=== PATIENT | female | born 1930 | race Caucasian/White ===

== ENCOUNTER 2020-02-21 11:15 | Inpatient (IN) | payer MEDICARE ==
[~2020-02-21] VITALS: Ht 165.1 cm; Wt 61.2 kg
[2020-02-21 11:38] VITALS: BP_SYST 150; BP_SYST 152; BP_DIAS 72; BP_DIAS 81
--- NOTE | 2020-02-21 11:43 | ER.PDOC ---
General Chief Complaint: Requesting Medical Care Stated Complaint: MED CLEARANCE Time seen by MD: 11:35 Source: patient, EMS Exam Limitations: clinical condition History of Present Illness Initial Comments Patient arrives here via ambulance from [place] d/t new onset delusions. We are to medically clear her for [facility] admission. Character of AMS: agitated Context: chronic dementia Usually: alert but confused Allergies: Coded Allergies: azithromycin (Verified Allergy, Unknown, 02/21/20) cyanocobalamin (vitamin B12) (Verified Allergy, Unknown, 02/21/20) ferrous sulfate (Verified Allergy, Unknown, 02/21/20) meperidine (Verified Allergy, Unknown, 02/21/20) Past Medical History Medical History: cardiac problems, diabetes, other (dementia) Review of Systems Constitutional: no symptoms reported Eyes: no symptoms reported Ears, Nose, Mouth, Throat: no symptoms reported Respiratory: no symptoms reported Cardiovascular: no symptoms reported Gastrointestinal: no symptoms reported Skin: no symptoms reported Psychiatric/Neurological: emotional problems, cognitive dysfunction Physical Exam General Appearance: alert, no distress HEENT: no apparent trauma, EOM's intact, no nystagmus, PERRL Neuro/Psych: disoriented to time, abnml cognition (Patient persistently repeats the same questions, seconds/minutes after giving an answer) Cranial Nerves: nml as tested Peripheral Exam: motor nml Neck: supple, non-tender Respiratory: no resp distress, breath sounds nml, resp distress CVS: heart sounds nml Abdomen: non-tender, no distention Skin: color nml, no rash Extremities: non-tender, nml ROM, no pedal edema Results/Orders Results/Orders Orders - MARCOS MOLINA DO Cbc With Auto Diff (02/21/20 11:32) Comprehensive Metabolic Panel (02/21/20 11:32) Urinalysis (02/21/20 11:32) Thyroid Stimulating Horm(Ml) (02/21/20 11:32) Drug Scrn Med W Confirmation (02/21/20 11:32) Vitamin D, 25 Hydroxy (02/21/20 11:32) RPR (02/21/20 11:32) Hemoglobin A1c(Ml) (02/21/20 11:32) Lipid Panel(Ml) (02/21/20 11:32) Troponin I (02/21/20 11:32) Creatine Kinase (02/21/20 11:32) Creatine Kinase Mb (02/21/20 11:32) Probnp B-Type Parachute Officer (02/21/20 11:32) Alcohol(Ml) (02/21/20 11:32) Acetaminophen(Ml) (02/21/20 11:32) Salicylate(Ml) (02/21/20 11:32) Ekg-Routine (02/21/20 11:32) Ct Head Wo Contrast (02/21/20 11:32) Xr Chest 1v (02/21/20 11:32) Lorazepam (Ativan) (02/21/20 12:10) Haloperidol Lactate (Haldol) (02/21/20 12:42) Haloperidol Lactate (Haldol) (02/21/20 12:58) Urine Culture (02/21/20 12:41) Ondansetron Hcl/Pf (Zofran) (02/21/20 13:20) Fentanyl Citrate/Pf (Sublimaze) (02/21/20 13:21) Vital Signs Date Time Temp Pulse Resp B/P (MAP) Pulse Ox O2 Delivery O2 Flow Rate FiO2 02/21/20 11:51 98.3 70 16 150/81 (104) 97 Room Air 02/21/20 11:38 98.0 71 16 97 02/21/20 11:38 98.3 70 16 Administered Medications Medications (Trade) Dose Ordered Sig/Colton Route PRN Reason Start Time Stop Time Status Last Admin Dose Admin Haloperidol Lactate (Haldol) 5 mg STAT STAT IM 02/21/20 12:42 02/21/20 12:43 DC 02/21/20 13:03 5 MG Laboratory Tests Test 02/21/20 11:55 02/21/20 12:15 White Blood Count 7.4 10^3/uL (4.5-11.0) Red Blood Count 4.33 10^6/uL (4.00-5.20) Hemoglobin 12.7 g/dL (12.0-15.0) Hematocrit 37.9 % (36.0-46.0) Mean Corpuscular Volume 87.5 fL (78-100) Mean Corpuscular Hemoglobin 29.3 pg (26-34) Mean Corpuscular Hemoglobin Concent 33.5 g/dL (33-36.5) Red Cell Distribution Width 12.6 % (11.5-14.5) Platelet Count 287 10^3/uL (150-400) Mean Platelet Volume 10.2 fL (7.8-11.0) Neutrophils (%) (Auto) 65.2 % (41.0-85.0) Lymphocytes (%) (Auto) 26.9 % (24.0-44.0) Monocytes (%) (Auto) 6.7 % (5.0-12.0) Neutrophils # (Auto) 4.8 10^3/uL (1.8-7.7) Lymphocytes # (Auto) 1.98 10^3/uL1 (1.0-4.8) Monocytes # (Auto) 0.5 10^3/uL (0.3-0.8) Absolute Immature Granulocyte (auto 0.01 10^3 u/L (0-2) Absolute Eosinophils (auto) 0.1 10^3/uL (0.0-0.2) Immature Granulocytes % 0.10 % (0.00-0.50) Eosinophils % 0.8 % (0.0-5.0) Basophils % 0.3 % (0.0-0.2) H Basophils # 0.0 10^3/uL (0.0-0.1) Sodium Level 137 mmol/L (132-145) Potassium Level 3.8 mmol/L (3.6-5.2) Chloride Level 103.0 mmol/L (96-109) Carbon Dioxide Level 24.4 mmol/L (20.0-32) Anion Gap 13.4 Blood Urea Nitrogen 18 mg/dL (7-18) Creatinine 1.56 mg/dL (0.59-1.40) H Estimated GFR () 38.0 (>/=60) Est GFR (CKD-EPI)(Non-Afr Surinamese) 31.4 (>/=60) BUN/Creatinine Ratio 11.0 Glucose Level 148 mg/dL (70-110) H Hemoglobin A1c 11.2 % (0-5.7) H Calcium Level 9.0 mg/dL (8.4-10.5) Total Bilirubin 0.3 mg/dL (0.2-1.0) Aspartate Amino Transferase (AST) 24 U/L (0-35) Alanine Aminotransferase (ALT) 27 U/L (12-78) Alkaline Phosphatase 55 U/L (50-136) Total Creatine Kinase 44 U/L (26-192) Creatine Kinase MB 1.7 ng/mL (0.5-3.6) Troponin I < 0.02 ng/mL (0.00-0.05) Pro-B-Type Natriuretic Peptide 796 pg/mL (0-450) H Total Protein 6.4 g/dL (6.4-8.2) Albumin 3.3 g/dL (3.4-5.0) L Globulin 3.1 Triglycerides Level 134 mg/dL (20-200) Cholesterol Level 272 mg/dL (120-240) H LDL Cholesterol, Calculated 204.2 VLDL Cholesterol, Calculated 26.8 HDL Cholesterol 41 mg/dL (32-96) Cholesterol Ratio (LDL/HDL) 4.9 Cholesterol/HDL Ratio 6.685125 Thyroid Stimulating Hormone (TSH) 3.118 mIU/mL (0.358-3.740) Salicylates Level < 2.8 mg/dL (2.8-20.0) L Acetaminophen Level < 3 ug/mL (10-30) L Serum Alcohol < 3 mg/dL (0-50) Urine Collection Type VOID Urine Color YELLOW (YELLOW) Urine Appearance CLEAR (CLEAR) Urine Bilirubin NEGATIVE MG/DL (NEGATIVE) Urine Ketones NEGATIVE (NEGATIVE) Urine Specific [place] 1.015 (1.005-1.035) Urine pH 6.0 (5.0-6.0) Urine Protein NEGATIVE (NEGATIVE) Urine Urobilinogen NEGATIVE (NEGATIVE) Urine Nitrate NEGATIVE (NEGATIVE) Urine Leukocyte Esterase 100/ul 1+ (NEGATIVE) Urine Blood 10 TR (NEGATIVE) H Urine RBC 0-2 RBC/HPF (NONE SEEN) Urine WBC 2-5 WBC/HPF (0-2) Urine Squamous Epithelial Cells FEW #/HPF (FEW) Urine Bacteria FEW (NONE SEEN) H Urine Glucose 100 (NEGATIVE) H Urine Opiates Screen NEGATIVE (c/o300ng/mL) Urine Methadone Screen NEGATIVE (c/o300ng/mL) Urine Barbiturates Screen NEGATIVE (c/o200ng/mL) Urine Phencyclidine Screen NEGATIVE (c/o 25ng/mL) Ur Amphetamine/Methamphetamine NEGATIVE (mt9081ee/mL) Urine MDMA Screen (Ecstasy) PRESUMPTIVE POSITIVE Urine Benzodiazepines Screen NEGATIVE (c/o200ng/mL) Urine Cocaine Metabolite Screen NEGATIVE (c/o300ng/mL) Ur Tetrahydrocannabinol (THC) Scrn NEGATIVE (c/o 50ng/mL) EKG/XRAY/CT/US EKG: NSR, no ST T wave changes XRAY: chest XRAY Comments: no acute dz CT Comments: age related changes Consult/PCP Time Consult/PCP Called: 13:57 Consult/PCP: Dr. Wang Reason/Comments: accepted patient to [facility] Departure Time of Disposition: 13:58 Disposition: 09 ADMITTED INPATIENT Impression: Primary Impression: Delusional disorder Additional Impressions: Combative behavior Dementia Uncontrolled diabetes mellitus Condition: Improved Duration or Time Spent with Pa: 15 min Problem Qualifiers Additional Impressions: Dementia Dementia type: unspecified type Dementia behavioral disturbance: with behavioral disturbance Qualified Codes: F03.91 - Unspecified dementia with behavioral disturbance Uncontrolled diabetes mellitus Diabetes mellitus type: type 2 Glycemic state: with hyperglycemia Qualified Codes: E11.65 - Type 2 diabetes mellitus with hyperglycemia MARCOS MOLINA DO Feb 21, 2020 11:43
[2020-02-21 11:51] VITALS: BP 150/81
--- NOTE | 2020-02-21 11:53 | NUR ---
[facility] NOTIFIED CAROLYNN ON [facility] PT HAS ARRIVED.
[2020-02-21 12:03] LABS: BASOPHIL % 0.3 % (0.0-0.2); EOSINOPHIL # 0.1 10^3/uL (0.0-0.2); EOSINOPHIL % 0.8 % (0.0-5.0); LYMPHOCYTES # 1.98 10^3/uL1 (1.0-4.8); LYMPHOCYTES % 26.9 % (24.0-44.0); MEAN CORP HGB 29.3 pg (26-34); MONOCYTES # 0.5 10^3/uL (0.3-0.8); MONOCYTES % 6.7 % (5.0-12.0); NEUTROPHIL # 4.8 10^3/uL (1.8-7.7); NEUTROPHILS % 65.2 % (41.0-85.0); RED CELL DISTRIBUTION WIDTH 12.6 % (11.5-14.5)
[2020-02-21] MEDS ORDERED: ATIVAN PO STA (12:10)
--- NOTE | 2020-02-21 12:14 | PCM.EKG ---
[facility] Test Date: 2020-02-21 Test Time: 12:00:39 Pat Name: JUAN SANCHEZ Department: Room: 212 Gender: F Dip Guider Stoves: JACQUELINE : 1930 Requested By: MARCOS LOYA Order Number: [id number] Reading MD: Di Loya Measurements Intervals [place] Rate: 71 P: 17 DC: 167 QRS: 67 QRSD: 87 T: 102 QT: 375 QTc: 408 Interpretive Statements Sinus rhythm Consider left ventricular hypertrophy Nonspecific T abnormalities, lateral leads No previous ECG available for comparison Electronically Signed On 02-26-2020 19:23:06 CDT by Di Loya Please click the below link to view image of tracing.
[2020-02-21] MEDS ORDERED: HALDOL IM STA (12:42)
[2020-02-21 12:46] LABS: ALANINE AMINOTRANSFERASE(ML) 27 U/L (12-78); ALKALINE PHOSPHATASE 55 U/L (50-136); ASPARTATE AMINO TRANSFERASE 24 U/L (0-35); CARBON DIOXIDE 24.4 mmol/L (20.0-32); CHOLESTEROL 272 mg/dL (120-240); GLUCOSE 148 mg/dL (70-110); HDL CHOLESTEROL 41 mg/dL (32-96)
[2020-02-21] MEDS ORDERED: HALDOL ONE (12:58)
[2020-02-21 13:04] LABS: APPEARANCE,URINE CLEAR (CLEAR); UA COLOR YELLOW (YELLOW)
[2020-02-21 13:05] LABS: BILIRUBIN,URINE NEGATIVE (NEGATIVE); UROBILINOGEN,URINE NEGATIVE (NEGATIVE)
[2020-02-21] MEDS ORDERED: ZOFRAN ONE (13:20)
[2020-02-21] MEDS ORDERED: SUBLIMAZE ONE (13:21)
--- NOTE | 2020-02-21 13:47 | DIREP ---
PROCEDURE: CT HEAD BRAIN W/O CONTRAST TECHNIQUE:Contiguous 5.0 mm transaxial sections were obtained from the vertex to skull base without the use of intravenous contrast. COMPARISON:None. INDICATIONS:mental status change FINDINGS: VENTRICLES:Prominent, consistent with the degree of age related cortical atrophy. CEREBRUM:No acute intracranial hemorrhage or mass effect. Hypoattenuation throughout the deep periventricular and subcortical white matter, consistent with chronic small vessel ischemia. Bilateral basal ganglia calcifications. CEREBELLUM:Normal. BRAINSTEM:Normal. SKULL:Normal. SINUSES:Minimal opacification of the sphenoid sinus. Otherwise, visualized paranasal sinuses and mastoid air cells are well pneumatized. OTHER:Negative. CONCLUSION: 1. No acute intracranial hemorrhage or mass effect. 2. Age-related involutional and chronic microvascular ischemic changes. Dictated by: Aurelio Jamison MD on 02/21/2020 at 01:44 PM
--- NOTE | 2020-02-21 13:48 | DIREP ---
PROCEDURE:CHEST 1 VIEW COMPARISON:None. INDICATIONS:mental status change FINDINGS: LUNGS/PLEURA:No focal consolidation, pleural effusion, or pneumothorax. VASCULATURE:Unremarkable pulmonary vasculature. Calcified aortic arch. CARDIAC:Heart size within normal limits. Status post median sternotomy. MEDIASTINUM:Normal. No visible mass or adenopathy. BONES:Degenerative change without evidence of acute osseus abnormality. OTHER:Negative. CONCLUSION: 1. No acute cardiopulmonary process. Dictated by: Aurelio Jamison MD on 02/21/2020 at 01:46 PM
--- NOTE | 2020-02-21 13:55 | NUR ---
[facility] DR MOLINA ON PHONE WITH DR LARA.
[2020-02-21 14:30] VITALS: BP 142/65
--- NOTE | 2020-02-21 14:40 | NUR ---
ADMISSION: PATIENT ARRIVED ON THE U VIA WHEELCHAIR POST MEDICAL CLEARANCE AT [facility] ER. PATIENT WAS CALM AND COOPERATIVE, BUT HAD RECEIVED HALDOL IN ER. SHE WAS ORIENTED TO PERSON AND PLACE. PATIENT WAS IN A GOWN. PATIENT HAS A HISTORY OF DEMENTIA, CAD, DIABETES TYPE 2, ASTHMA, HYPERLIPIDEMIA, ARTHRITIS, VERTIGO. SHE WAS A RESIDENT [facility] AND SHE HAD BECOME AGITATED AND VERBALLY AGGRESSIVE TOWARDS STAFF. SHE THREW WATER BOTTLES AT STAFF. TODAY SHE DOESN'T REMEMBER ANY OF THE BEHAVIORS THAT CAUSED HER TO BE ADMITTED HERE INVOLUNTARY. DX. DELUSIONAL DISORDER. PATIENT REQUIRED ASSISTANCE TO TRANSFER FROM BED TO CHAIR AND REQUIRED ASSISTANCE WITH CHANGING HER BRIEF AND GOWN D/T INCONTINENCE. SHE IS HARD OF HEARING. PATIENT WILL RETURN TO [facility] ASSISTED LIVING UPON DISCHARGE.
[2020-02-21 16:17] VITALS: BP 152/72
[2020-02-21] MEDS ORDERED: METF500T17 PO (16:41)
[2020-02-21] MEDS ORDERED: METO-236 PO (16:41)
[2020-02-21] MEDS ORDERED: ISOS30TA4 PO (16:41)
[2020-02-21] MEDS ORDERED: GLIM1TAB PO (16:41)
[2020-02-21] MEDS ORDERED: TOLT2CAP PO (16:41)
[2020-02-21] MEDS ORDERED: GLIP5TAB10 PO (16:41)
[2020-02-21] MEDS ORDERED: SIMV40TA20 PO (16:41)
[2020-02-21] MEDS ORDERED: DONE5TAB14 PO (16:41)
[2020-02-21] MEDS ORDERED: LOSA1TAB25 PO (16:41)
[2020-02-21] MEDS ORDERED: AMLO5TAB10 PO (16:41)
[2020-02-21] MEDS ORDERED: LISI10TA2 PO (16:41)
--- NOTE | 2020-02-21 17:49 | NUR ---
NOTIFIED DR LARA AND DR WARD: NOTIFIED DR. LARA FOR ORDERS AND INFORMED HIM OF OUT OF HOSPITAL DNR ORDER IN CHART. DR WARD NOTIFED AND ORDERS RECEIVED.
[2020-02-21 20:00] VITALS: BP 133/70
[2020-02-21] MEDS: TOPROL XL PO SCH (20:39)
[2020-02-21] MEDS: GLUCOPHAGE PO SCH (20:40)
--- NOTE | 2020-02-21 20:40 | NUR ---
WINDOWS VMWARE ENGINEER PT REFUSED DONEPEZIL ODT, PT STATES THAT SHE DOES NOT NEED THAT MEDICATION. PT REFUSED AFTER SEVERAL ATTEMPTS, AND AFTER TEACHING THE IMPORTANCE OF THE MEDICATION.
[2020-02-21] MEDS: ARICEPT ODT PO SCH (21:27)
--- NOTE | 2020-02-21 21:31 | NUR ---
LIBRARIAN HEAD ADMINISTERED DONEPEZIL TO PT AFTER SECOND ATTEMPT
--- NOTE | 2020-02-21 22:11 | PRM.CONS ---
CONSULTATION CONSULTATION Date of consultation: March 22, 2020 Reason for consultation: Concurrent medical care Consultation note: 89-year-old female who is living in an assisted living facility in [place] and has underlying dementia. She has been having more aggressive behavior with delusions at the assisted living and she was brought over to be admitted to our behavioral health unit. She really has no complaints at this time and and she does not know why she is here. She is very somnolent and was participating with other residents earlier but is asleep right now is hard to awake. She does deny any pains at this time. Past medical history: Type 2 diabetes mellitus, hypertension, dementia Past surgical history: Unknown at this time Medications: I have reviewed her home medication list in [facility] Allergies: Zithromax, vitamin B12, ferrous sulfate, Demerol Family history: Noncontributory for this admission Vital signs: Temperature 98.0, pulse 72, respirations 16, blood pressure 142/65, O2 sat 96% on room air Physical exam: HEENT: Oropharynx is clear, tongue is midline, moist mucous membranes noted Neck: Supple, no JVD Heart: S1 and S2 audible, no tachycardia Lungs: CTA bilaterally Abdomen: Bowel sounds are present, soft abdomen Extremities: No pitting edema, some varicosities noted, warm skin, 2+ distal pulses noted Laboratory: CBC normal, UA with few bacteria and 1+ esterase, chemistry panel normal with a creatinine of 1.56, glucose 148, proBNP 796, TSH 3.1, LDL 204 Assessment: Dementia with behavioral disturbances with underlying diabetes and hypertension Recommendations: We will continue her home medications and follow her blood sugars and blood pressures. I will await urine culture to see if she has a UTI. HERNANDEZ WARD MD Feb 21, 2020 22:11
--- NOTE | 2020-02-22 03:58 | NUR ---
pirp- P- BEHAVIORAL DISTURBANCE,FALL RISK AND MEDICATION NON COMPLIANCE I- PROVIDE MEDICATION ORDERED,PROVIDE MEDICATION ORDERED,PROVIDE CLEAR AND SIMPLE INSTRUCTIONS AND Q 15 MIN. MONITORING. R- PT. ORIENTED TO NAME AND YEAR NOT MONTH. ATTENDED GROUP, ATE SNACKS AND MEDICATION EDUCATION WAS PROVIDED AND PT. VOICED UNDERSTANDING. PT. REFUSED MEDICATION AT FIRST BUT WITH TEACHING AND ENCOURAGEMENT SHE DID TAKE MEDICATIONS. PT. HAS NOT BEEN AGGRESSIVE. CALM AND COOPERATIVE. FALL PRECAUTIONS WERE TAUGHT,BED IN LOW POSITION, PT. WEARING YELLOW NON SKID SOCK. STANDBY ASSIST BY STAFF WHEN AMBULATING. PT. HAS SHUFFLING GAIT. RESTING IN BED WITH EYES CLOSED AT THIS TIME. P- WILL CONTINUE TO PROVIDE 1:1 INTERVENTION ALLOWING PT. TO EXPRESS THOUGHTS AND FEELINGS.
[2020-02-22 08:30] VITALS: BP 145/59
[2020-02-22] MEDS ORDERED: AMARYL ONE (08:40)
[2020-02-22] MEDS ORDERED: COZAAR ONE (08:47)
[2020-02-22] MEDS: GLUCOPHAGE PO SCH ×2 (09:00→09:28)
[2020-02-22] MEDS: ZESTRIL PO SCH ×2 (09:00→09:28)
[2020-02-22] MEDS: AMARYL PO SCH ×2 (09:00→09:27)
[2020-02-22] MEDS: TOPROL XL PO SCH ×3 (09:00→22:14)
[2020-02-22] MEDS: NORVASC PO SCH ×2 (09:00→09:29)
[2020-02-22] MEDS: COZAAR PO SCH ×2 (09:00→09:27)
[2020-02-22] MEDS: IMDUR PO SCH ×2 (09:00→09:29)
[2020-02-22] MEDS: HYDROCHLOROTHIAZIDE PO SCH ×2 (09:00→09:27)
[2020-02-22] MEDS: DITROPAN PO SCH ×4 (09:00→22:13)
--- NOTE | 2020-02-22 09:00 | NUR ---
JUKE BOX SERVICER ATTEMPTED TO ADMINISTER MEDICATIONS PATIENT REFUSED STATING, "I'M NOT TAKING ALL OF THOSE PILLS." EDUCATION PROVIDED FOR THE REASON TAKE THE MEDICATIONS. CONTINUES TO REFUSE.
[2020-02-22] MEDS: GLUCOTROL PO SCH ×3 (09:01→17:20)
--- NOTE | 2020-02-22 09:10 | NUR ---
FIELD CROP FARMER SECOND ATTEMPT TO GET PATIENT TO TAKE HER MEDICATIONS. CONTINUES TO REFUSE.
--- NOTE | 2020-02-22 09:27 | NUR ---
BUCKLE ATTACHER CHARGE NURSE JUAN MANUEL SPOKE WITH PATIENT ABOUT MEDICATION. PATIENT AGREED TO TAKE MEDICATION, BUT THEN REFUSED AGAIN WHEN PRESENTED WITH MEDICATION.
--- NOTE | 2020-02-22 09:40 | NUR ---
BRUSH MATERIAL PREPARER CHARGE NURSE JUAN MANUEL MUKHERJEE TO PERSUADE PATIENT TO TAKE MORNING MEDICATIONS. Addendum: 02/22/20 at 0946 by JEANNE Sandy RN PT WAS PROVIDED WITH EDUCATION REGARDING USE OF MEDICATIONS AND POSSIBLE COMPLICATIONS R/T INCREASED BP, HR, AND BLOOD GLUCOSE. PT THEN AGREED TO TAKE MEDICATIONS.
--- NOTE | 2020-02-22 12:29 | NUR ---
TELEMED PT WAS SEEN BY DR. TARANGO VIA TELEMED. NO NEW ORDERS RECEIVED @ THIS TIME.
--- NOTE | 2020-02-22 14:03 | PCM.HP ---
History of Present Illness Reason for Visit: (1) Delusional disorder ICD Code: F22 - Delusional disorders SNOMED: [id number], [id number] Hx of Present Illness 89 yo F, transferred from [facility] to [facility] for further evaluation. Per report, patient has been increasingly agitated, threw water at staff at [facility]. On arrival to ER, patient continued to be agitated/combative and received PRN Haldol. When she was transferred to behavioral unit, she was somnolent from the PRN, but she slept well overnight (7hrs), has good appetite, and overall has not been agitated, though nursing mentions that patient was resistant about taking her home medications (took a few tries then patient did take them). Patient is alert, oriented to person and place, though disoriented to date or why she is here. She does not remember getting agitated at the [facility]. She denies any current depressive/manic symptoms, no SI/HI. She denies any current AVH/paranoia. No significant anxiety/OCD/PTSD symptoms. No E/T/D use. Patient mentions that she'd like to go home, "so I can see Antonietta and Adan" (son and daughter in law). 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 Social: Lives at [facility] Review of Systems Other Mental Status Exam: Gen: Alert, oriented to person/place, appears stated age, dressed in hospital gown, good hygiene, using wheelchair, cooperative, good eye contact Speech: normal rate/volume, easily understood Mood: "okay" Affect: congruent, appropriate Intelligence: average by fund of knowledge, though some deficits noted (likely 2/2 dementia) TC: denies SI/HI, denies AVH/paranoia TP: coherent, logical Insight: fair Judgement: fair Allergies: Coded Allergies: azithromycin (Verified Allergy, Unknown, 02/21/20) cyanocobalamin (vitamin B12) (Verified Allergy, Unknown, 02/21/20) ferrous sulfate (Verified Allergy, Unknown, 02/21/20) meperidine (Verified Allergy, Unknown, 02/21/20) Scheduled Amlodipine Besylate (Amlodipine Besylate), 1 TAB PO DAILY, (Reported) Donepezil Hcl (Donepezil Hcl), 5 MG PO HS, (Reported) Glimepiride (Amaryl), 2 TAB PO DAILY, (Reported) Glipizide (Glipizide), 1 TAB PO BIDAC, (Reported) Isosorbide Mononitrate (Isosorbide Mononitrate Er), 1 TAB PO DAILY, (Reported) Lisinopril (Lisinopril), 1 TAB PO DAILY, (Reported) Losartan/Hydrochlorothiazide (Losartan-Hctz 100-12.5 Mg Tab), 1 TAB PO DAILY, (Reported) Metformin Hcl (Metformin Hcl), 1 TAB PO BID, (Reported) Metoprolol Succinate (Metoprolol Succinate), 1 TAB PO BID, (Reported) Simvastatin (Simvastatin), 1 TAB PO HS, (Reported) Tolterodine Tartrate ([place] La), 2 CAP PO DAILY, (Reported) VTE VTE Risk Total Score: 3 VTE Risk Score VTE Risk: Score 0-1 = Low Risk (Aggressive mobilization; early ambulation; no VTE prophylaxis required) Score 2: Moderate Risk (Intermittent/Pneumatic Compression Device OR Lovenox/Heparin/Coumadin) Score 3-4: High Risk (Intermittent/Pneumatic Compression Device AND Lovenox/Heparin/Coumadin) Score > or =5: Highest Risk (Intermittent/Pneumatic Compression Device AND Lovenox/Heparin/Coumadin) VTE VTE Present on Admission: No Currently receiving anticoagul: No VTE Risk Total Score: 3 Exam Vital Signs Vital Signs Date Time Temp Pulse Resp B/P (MAP) Pulse Ox O2 Delivery O2 Flow Rate FiO2 02/22/20 09:29 145/59 02/22/20 09:29 60 02/22/20 08:30 98.3 16 99 Room Air General Appearance: Alert, Cooperative, No acute distress HEENT: Atraumatic Psych/Mental Status: Other (see MSE above) Assessment/Plan Assessment/Plan Assessment/Plan 89 yo F, hx of dementia, admitted to [facility] for worsening mood/aggressive behaviors. Patient not aware of reason for her admission, does not recall being aggressive. She has been calm since her admission, will continue to monitor and follow longitudinally to help refine her diagnosis. Additionally, initial screen was positive for MDMA, but awaiting confirmatory test result. Crandall I: Delusional Disorder (provisional) Crandall III: Dementia Plan 1) Continue Zyprexa Zydis 5mg PO Q6hrs PRN psychosis/agitation -may give IM if PO is refused 2) Continue behavioral management 3) Order labs -- b12, folate 4) Appreciate hospitalist assistance with medical conditions WENDI TARANGO MD Feb 22, 2020 14:03
--- NOTE | 2020-02-22 17:47 | NUR ---
MMSE SCORE 9: FINDINGS INDICATE SEVERE IMPAIRMENT. PT ALSO DID NOT WANT TO FULLY PARTICIPATE IN ASSESSMENT. Addendum: 02/23/20 at 1759 by Ivon FLORES Amended: Links added.
--- NOTE | 2020-02-22 17:50 | NUR ---
GMAS SCORE 02/20: FINDINGS INDICATE PT IS WITHIN NORMAL RANGE. Addendum: 02/23/20 at 1759 by Ivon Falcon LMSW SW Amended: Links added.
--- NOTE | 2020-02-22 17:57 | NUR ---
BIOPSYCHOSOCIAL: PT REPORTS SHE IS TIRED AT THIS TIME AND WANTED TO CONTINUE ASSESSMENT AFTER SHE GOT SOME SLEEP. SW TO FINISH ASSESSMENT AT A LATER TIME. Addendum: 02/23/20 at 1759 by Ivon FLORES Amended: Links added.
--- NOTE | 2020-02-22 18:21 | NUR ---
PIRP P: DTO, ALTERATION IN MOOD I: Q15 MIN MONITORING, ASSESS REASONS FOR ANGER/IRRITABILITY, PROVIDE SAFE AND SUPPORTIVE ENVIRONMENT, PROVIDE TASK-ORIENTED ACTIVITIES, RE-ORIENT TO SURROUNDINGS NEEDED, GIVE CLEAR AND SIMPLE INSTRUCTIONS, REDIRECT WITH VERBALIZATION, PROVIDE 1:1 TO ENCOURAGE EXPRESSION OF FEELINGS, REINFORCE EDUCATION REGARDING IMPORTANCE OF MEDICATION COMPLIANCE R: PT HAS MOSTLY PLEASANT AFFECT THROUGHOUT SHIFT. HAS NOT EXHIBITED THREATENING OR COMBATIVE BEHAVIORS. DENIES FEELINGS OF DEPRESSION, ANXIETY, SI/HI. NO HALLUCINATIONS OR DELUSIONS NOTED. HAS PARTICIPATED IN SOME GROUP ACTIVITIES WITH PROMPTING AND SIMPLE INSTRUCTION. INITIATES INTERACTION WITH PEERS, RESPONDS APPROPRIATELY TO APPROACH. PT REQUIRES MEDICATION EDUCATION PRIOR TO ADMINISTRATION D/T PT BEING HESITANT TO TAKE MEDS. P: RE-ORIENT TO SURROUNDINGS NEEDED, USE CALM APPROACH
[2020-02-22 19:38] VITALS: BP 102/86
--- NOTE | 2020-02-22 21:10 | NUR ---
NOTIFICATION PT.'S BP WAS 102/47 AND ACCU CHECK WAS 386. NOTIFIED DR. DAY AND RECEIVED MEDICATION ORDER TO DC GLIPIZIDE, START REGULAR INSULIN SLIDING SCALE LOW DOSE,CHANGE METFORMIN FROM 500MG BID TO 1000MG BID. HOLD METOPROLOL TONIGHT AND NOTIFY BY 0800 02/23/20 TO REPORT MORNING BLOOD PRESSURE.
[2020-02-22] MEDS ORDERED: GLUCOPHAGE PO STA (21:21)
[2020-02-22] MEDS ORDERED: HUMULIN R SQ ONE (21:30)
[2020-02-22] MEDS ORDERED: DEXTROSE 50%-WATER SYRINGE IV PRN (21:30)
[2020-02-22] MEDS: ARICEPT ODT PO SCH (22:12)
[2020-02-22] MEDS: LIPITOR PO SCH (22:12)
--- NOTE | 2020-02-22 22:50 | NUR ---
STATUS BP WAS RETAKEN AT APPROXIMATELY 2250 AND READING WAS 102/86.
--- NOTE | 2020-02-23 04:55 | NUR ---
pirp- p- DTO AND ALTERATION IN MOOD I- PROVIDE SAFE AND SUPPORTIVE ENVIRONMENT,Q 15 MIN. MONITORING AND PROVIDE MEDICATION ORDERED. R- PT. DENIED DEPRESSION ,ANXIETY, SI /HI THIS SHIFT. ATTENDED GROUP, PARTICIPATED IN EXERCISES AND PT. WAS ASSISTED WITH A BATH,HS CARE AND TO BED. ATE SNACKS. INITIATED INTERACTION WITH STAFF AND PEERS. MEDICATION EDUCATION PROVIDED ON HS MEDICATION. TOOK MEDICATION, ORDERED, WITHOUT DIFFICULTY. PT. HAS NOT EXHIBITED AGITATION OR AGGRESSION THIS SHIFT. RESTING IN BED WITH EYES CLOSED AT THIS TIME. P- WILL CONTINUE TO PROVIDE 1:1 INTERVENTION ALLOWING PT. TO EXPRESS THOUGHTS AND FEELINGS.
[2020-02-23 07:14] VITALS: BP 138/61
[2020-02-23] MEDS: HUMULIN R SQ SCH ×4 (07:24→20:11)
--- NOTE | 2020-02-23 07:28 | NUR ---
DR. CISNEROS NOTIFIED DR. CISNEROS NOTIFIED OF A.M. BP OF 138/61, RECEIVED ORDERS TO DECREASE SCHEDULED METOPROLOL SUCCINATE AND HOLD AMLODIPINE, LISINOPRIL, LOSARTAN POTASSIUM, AND HCTZ, SEE EMR.
[2020-02-23] MEDS: DITROPAN PO SCH ×3 (08:07→20:12)
[2020-02-23] MEDS: IMDUR PO SCH (08:07)
[2020-02-23] MEDS ORDERED: AMARYL ONE (08:49)
[2020-02-23] MEDS: AMARYL PO SCH (08:53)
[2020-02-23] MEDS ORDERED: GLUCOPHAGE PO SCH (09:00)
[2020-02-23] MEDS ORDERED: TOPROL XL PO SCH (09:00)
--- NOTE | 2020-02-23 09:03 | NUR ---
TELEMED PT WAS SEEN BY DR. TARANGO VIA TELEMED. NO NEW ORDERS RECEIVED @ THIS TIME.
--- NOTE | 2020-02-23 09:10 | PRM.PN ---
Mood: "good" Sleep: 5.75hrs Appetite: breakfast was 'pitiful' Suidical thoughts: denies Homicidal thoughts: denies Recent stressors: denies Family support: son and daughter in law Aggressive Behavior: denies Ability to Perform ADL'sc: with staff assistance Psychotic sympstoms: denies Manic Symptoms: denies Living situation: lives at [facility] Illicit Drug usec: denies Alcoholo use: denies Tobacco use: denies Anxity Symptoms: denies Anger/Irritablility: denies Appearance: Well groomed/hygience, Appears age stated Attitude & Behaviour: Cooperative/Pleasant, Good eye contact Mood & Affect: Euthymic/appr/congruent Orientation: Fully oriented per interv Attention/Concentration: Fair attention, Fair concentration Speech: Reg rate/vol/rhyth/prosod Judgement/Insight: Fair judgement, Fair insight Thought Process: Linear/goal directed Language: [place] Thought content/Abnormal/Psych: None/normal Fund of Knowledge: Other (some deficiets from dementia) Associations: WNL/Normal Associations Memory (recent and remote): Gross int/not form assess Constitutional: None Neurological: None Psychiatric: None [place] I: Delusional [place] III: dementia Assessment/Plan Assessment/Plan Assessment/Plan Nursing: patient tends to wander around Switches from wheelchair to chair Has been fully oriented Has been calling son constantly She has been pleasant, no aggression Interview: Patient is pleasant, cooperative. She state that she wants to go home, "because my furniture is already there." 89 yo F, hx of dementia, admitted to [facility] for worsening mood/aggressive behaviors. Patient has had some wandering behaviors, and perseverations about going home/calling son; but she has not had any aggressive behaviors and has been redirectable by staff. Plan 1) Continue Zyprexa Zydis 5mg PO Q6hrs PRN psychosis/agitation -may give IM if PO is refused 2) Continue behavioral management 3) Continue monitoring behaviors, if no episodes of aggression, consider d/c back to SNF in a few days 4) Appreciate hospitalist assistance with medical conditions WENDI TARANGO MD Feb 23, 2020 09:10
[2020-02-23 12:30] VITALS: BP 121/57
--- NOTE | 2020-02-23 15:31 | NUR ---
PIRP P: ALTERATION IN MOOD I: Q15 MIN MONITORING, ASSESS FOR DEPRESSION/ANXIETY/ANGER, PROVIDE SAFE AND SUPPORTIVE ENVIRONMENT, PROVIDE TASK-ORIENTED ACTIVITIES, RE-ORIENT TO SURROUNDINGS NEEDED, GIVE CLEAR AND SIMPLE INSTRUCTIONS, REINFORCE FALL PREVENTION TECHNIQUES, REDIRECT WITH VERBALIZATION, PROVIDE 1:1 TO ENCOURAGE EXPRESSION OF FEELINGS R: PT HAS BRIGHT, CHEERFUL AFFECT THROUGHOUT SHIFT. HAS NOT EXHIBITED THREATENING OR COMBATIVE BEHAVIORS. COOPERATIVE WITH ADLS, TAKES MEDICATIONS ORDERED. NO HALLUCINATIONS OR DELUSIONS NOTED. PT IS ALERT AND ORIENTED X 3 THIS SHIFT, BUT DOES HAVE ISSUES WITH SHORT TERM MEMORY. PT REPORTS SHE WANTS TO GO HOME, HAS BEEN ABLE TO BE REDIRECTED WITH VERBALIZATION. P: RE-ORIENT NEEDED, PROVIDE TASK-ORIENTED ACTIVITIES
[2020-02-23 19:51] VITALS: BP 136/66
[2020-02-23] MEDS: LIPITOR PO SCH (20:12)
[2020-02-23] MEDS: LOPRESSER PO SCH (20:12)
[2020-02-23] MEDS: ARICEPT ODT PO SCH (20:12)
--- NOTE | 2020-02-24 05:08 | NUR ---
P.I.R.P. P. ALTERATION IN MOOD I. PROVIDE EVERY 15 MINUTE CHECKS, PROVIDE SAFE ENVIRONMENT, PROVIDE MEDICATIONS ORDERED PER MD , PROVIDE TASK ORIENTED GROUP ACTIVITY AND ENCOURAGE PARTICIPATION, PROVIDE 1:1 INTERVENTION TO ALLOW PATIENT TO EXPRESS FEELINGS. MONITOR FOR CHANGES IN COGNITIVE. R. PATIENT TOOK MEDS ORDERED, DID NOT PARTICIPATE IN WRAP UP GROUP, WANDERED IN DELANEY PROPELLING SELF IN WHEELCHAIR. DENIES ANXIETY, DENIES DEPRESSION, INTERACTS WITH OTHERS WHEN WANDERING IN DELANEY AND WITH STAFF, REQUIRES REMINDING TO USE BRAKE ON WHEELCHAIR FOR SAFETY. NO BEHAVIORS, HAS HAD INTERRUPTED SLEEP DURING NIGHT, CONTINUED TO DENY ANXIETY OR RESTLESSNESS VOICING JUST CAN NOT SLEEP, WANTS TO BE UP. PATIENT IS FORGETFUL, DISORIENTED OF WHEERE SHE IS AT TIMES, EASILY REDIRECTED. P. CONTINUE CURRENT PLAN OF CARE Addendum: 02/24/20 at 0632 by TATIANA Abel RN PATIENT IS CONFUSED AT TIMES.
[2020-02-24] MEDS: HUMULIN R SQ SCH ×4 (07:30→20:20)
[2020-02-24 07:42] VITALS: BP 132/56
[2020-02-24] MEDS ORDERED: AMARYL ONE (08:40)
[2020-02-24] MEDS: DITROPAN PO SCH ×3 (08:43→20:16)
[2020-02-24] MEDS: LOPRESSER PO SCH ×2 (08:43→20:16)
[2020-02-24] MEDS: AMARYL PO SCH (08:44)
[2020-02-24] MEDS: IMDUR PO SCH (08:44)
--- NOTE | 2020-02-24 08:45 | NUR ---
medications Metoprolol Tartrate 12.5mg po given after this RN counted apical HR of 75 auscultated 1 minute. Glimipride 1mg tabs unavailable, patient received 1- 2 mg tablet as per order for 2 mg po dose.
--- NOTE | 2020-02-24 09:37 | PRM.PN ---
Mood: its good Sleep: 4.75 hours - "like a log" Appetite: I could eat you if you stand still Suidical thoughts: why should I Homicidal thoughts: denies Recent stressors: I've been asked that about 40 times, I don't want to hurt nobody Family support: children are supportive Aggressive Behavior: no recent physical aggression Ability to Perform ADL'sc: stand by assist, 1 assist, Psychotic sympstoms: denies ah, Manic Symptoms: like exercise, walks the unit, play dominoes Living situation: lives in snf Illicit Drug usec: denies Alcoholo use: denies Tobacco use: denies Family,PT,Surgical,&Current HX: (1) Delusional disorder (2) Dementia (3) Combative behavior Anxity Symptoms: denies Anger/Irritablility: denies but can make short comments, Muscle Strength & Tone: Rigidity (but can follow instructions, arom not the best) Gait & Station: Ataxic (mild) Appearance: Well groomed/hygience Attitude & Behaviour: Cooperative/Pleasant Mood & Affect: Blunted Orientation: Disoriented to place, Disoriented to time Attention/Concentration: Fair attention, Poor concentration Speech: Reg rate/vol/rhyth/prosod Judgement/Insight: Poor judgement, Poor insight Thought Process: Circumferential Language: Togolese Thought content/Abnormal/Psych: Delusions (not oriented- ) Fund of Knowledge: WN Associations: Other Constitutional: None Neurological: None Psychiatric: Psychosis [place] I: dementia, delusional disorder, combative [place] III: uncontrolled diabetes by hx hx cabg [place] IV: lives at snf Assessment/Plan Assessment/Plan Plan Dr. Freeman H+P 02/22/2020 89 yo F, transferred from assisted to [facility] for further evaluation. Per report, patient has been increasingly agitated, threw water at staff at assisted. On arrival to ER, patient continued to be agitated/combative and received PRN Haldol. When she was transferred to behavioral unit, she was somnolent from the PRN, but she slept well overnight (7hrs), has good appetite, and overall has not been agitated, though nursing mentions that patient was resistant about taking her home medications (took a few tries then patient did take them). Patient is alert, oriented to person and place, though disoriented to date or wh y she is here. She does not remember getting agitated at the assisted. She denies any current depressive/manic symptoms, no SI/HI. She denies any current AVH/paranoia. No significant anxiety/OCD/PTSD symptoms. No E/T/D use. Patient mentions that she'd like to go home, "so I can see Antonietta and Adan" (son and daughter in law). 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 1) Continue Zyprexa Zydis 5mg PO Q6hrs PRN psychosis/agitation -may give IM if PO is refused 2) Continue behavioral management 3) Continue monitoring behaviors, if no episodes of aggression, consider d/c back to SNF in a few days 4) Appreciate hospitalist assistance with medical conditions Nursing: she is oriented, she is not aware of the town she has not been aggressive but can be irritable with staff, she does stand, walk, she asks staff why they are near her "I have never had this great of service, doesn't someone else need your help" she can be weak, but prefers to ambulate, staff with standby not recieved prn zyprexas patient: grew up in [place], moved to [place]: 1939 once but not in 1939, school, "normal things" once- all my life, is living- I don't know where he lives 3 children- 2 boys and a girl - talks to them yes Vital Signs Date Time Temp Pulse Resp B/P (MAP) Pulse Ox O2 Delivery O2 Flow Rate FiO2 02/24/20 08:44 132/56 02/24/20 08:43 75 02/24/20 07:42 98.3 18 97 Room Air Allergies Coded Allergies Type Severity Reaction Last Updated Verified azithromycin Allergy Unknown 02/21/20 Yes cyanocobalamin (vitamin B12) Allergy Unknown 02/21/20 Yes ferrous sulfate Allergy Unknown 02/21/20 Yes meperidine Allergy Unknown 02/21/20 Yes Current Medications Medications (Trade) Dose Ordered Sig/Colton PRN Reason Start Time Stop Time Status Last Admin Amlodipine Besylate (Norvasc) 5 mg DAILY 02/22/20 09:00 03/23/20 08:59 Hold 02/22/20 09:29 Atorvastatin Calcium (Lipitor) 20 mg HS 02/22/20 21:00 03/23/20 20:59 02/23/20 20:12 Dextrose (Dextrose 50%-Water Syringe) 25 ml STAT PRN HYPOGLYCEMIA 02/22/20 21:30 03/23/20 21:29 Donepezil HCl (Aricept Odt) 5 mg HS 02/21/20 21:00 03/22/20 20:59 02/23/20 20:12 Glimepiride (Amaryl) 2 mg DAILY 02/22/20 09:00 03/23/20 08:59 02/24/20 08:44 Hydrochlorothiazide (Hydrochlorothiazide) 12.5 mg DAILY 02/22/20 09:00 03/23/20 08:59 Hold 02/22/20 09:27 Insulin Human Regular (Humulin R) Give 30 minutes before meal ACHS 02/23/20 07:30 03/24/20 07:29 02/23/20 20:11 Isosorbide Mononitrate (Imdur) 30 mg DAILY 02/22/20 09:00 03/23/20 08:59 02/24/20 08:44 Lisinopril (Zestril) 10 mg DAILY 02/22/20 09:00 03/23/20 08:59 Hold 02/22/20 09:28 Losartan Potassium (Cozaar) 100 mg DAILY 02/22/20 09:00 03/23/20 08:59 Hold 02/22/20 09:27 Metformin HCl (Glucophage) 1,000 mg BID 02/23/20 09:00 03/24/20 08:59 Hold 02/23/20 08:08 Metoprolol Tartrate (Lopresser) 12.5 mg BID 02/23/20 09:22 03/24/20 08:59 02/24/20 08:43 Olanzapine (Zyprexa Zydis) 5 mg Q6 PRN AGITATION/PSYCHOSIS 02/21/20 18:00 03/22/20 17:59 Olanzapine (Zyprexa) 5 mg Q6 PRN AGITATION/PSYCHOSIS 02/21/20 18:00 03/22/20 17:59 Oxybutynin Chloride (Ditropan) 5 mg TID 02/22/20 09:00 03/23/20 08:59 02/24/20 08:43 Summary: Mixed irritable and not sleeping, add medications to assist with depressive sx and sleep initiation CONSENT: Consent was obtained by patient for telemedicine visit. Consent was obtained for the presence of staff member throughout encounter. Privacy was maintained throughout encounter PLAN: 1. CONTINUE BEHAVIORAL HEALTH MANAGEMENT. 2. CONTINUE CURRENT MEDICATIONS PRESCRIBED. STAFF AGREEABLE WITH PLAN- Add Remeron at 7.5mg po daily at hs 3. ALL PATIENT QUESTIONS ANSWERED RELATED TO MEDICATIONS, PLAN OF CARE, AND EXPECTED OUTCOMES. 4. SAFETY PLAN DISCUSSED. JORGE CHARLES NP Feb 24, 2020 09:37
--- NOTE | 2020-02-24 17:19 | NUR ---
PIRP: P: ALTERED THOUGHT PROCESS I: PROVIDE MEDICATIONS ORDERED BY PHYSICIAN. ENCOURAGE ATTENDANCE AND PARTICIPATION OF ALL GROUPS. ALLOW PATIENT TO VOICE FEELINGS AND CONCERNS. PROVIDE SAFE ENVIRONMENT. MONITOR PATIENT FOR DEPRESSION, ANXIETY, SUICIDAL IDEATION, AND PSYCHOTIC SYMPTOMS. R: PATIENT HAS TAKEN ALL MEDICATIONS ORDERED AND HAS BEEN COOPERATIVE. SHE HAS WALKED WITH STANDBY ASSISTANCE DOWN HALLWAY TODAY. SHE IS FORGETFUL AND ORIENTED TO PERSON, YEAR, MONTH. SHE CONTINUES TO BE A FALL RISK AND REQUIRES ASSISTANCE WHEN WALKING OR TRANSFERRING. SHE DENIES DEPRESSION, ANXIETY AND SUICIDAL THOUGHTS. SHE HAS NOT BEEN COMBATIVE THIS SHIFT. SHE TOLD HER DAUGHTER IN LAW TO COME AND GET HER TODAY. DAUGHTER IN LAW CALLED BACK AND ASKED IF SHE HAD BEEN DISCHARGED, THIS NURSE EXPLAINED THAT SHE HAD NOT BEEN DISCHARGED. SHE DENIES HALLUCINATIONS, SHE WAS STARTED ON REMERON FOR SLEEP AND WILL START TONIGHT. P: CONTINUE CURRENT PLAN OF CARE
[2020-02-24 19:41] VITALS: BP 150/68
[2020-02-24] MEDS: LIPITOR PO SCH (20:16)
[2020-02-24] MEDS: ARICEPT ODT PO SCH (20:16)
[2020-02-24] MEDS: REMERON PO SCH (20:18)
[2020-02-25] MEDS: ZYPREXA IM PRN (02:58)
--- NOTE | 2020-02-25 02:58 | NUR ---
BEHAVIORS/PRN ZYPREXA IM PATIENT WITH ANXIETY, RESTLESSNESS, AGITATION, TAKING CLOTHES OFF DOWN TO BEING NUDE IN HALLWAY, UNABLE TO RE DIRECT, WANTED TO TAKE A BATH, EDUCATION REFERENCE NO BATHTUB IN [facility] BUT THERE IS A SHOWER, PATIENT ATTEMPTED SHOWER BUT REFUSED SOAP AND FOR SAFETY DUE TO UNSTEADY NURSE EDUCATED PATIENT ON STAND BY ASSIST, PATIENT WOULD PULL BACK ON CURTAIN AND SHOWER KNOB, STAND BY ASSIST ACCOMPLISHED FOR SAFETY BUT THIS UPSET PATIENT. PATIENT CONTINUED TO BE ANXIOUS, YELLING , UNABLE TO CALM OR REDIRECT. DECLINED ORAL ZYPREXA, ZYPREXA 5 MG IM ADMINISTERED TO RIGHT HIP BY KELY SANCHEZ LVN ACCOMPANIED BY MALENA TOMLINSON R.N. Addendum: 02/25/20 at 0346 by Malena Tomlinson RN-Alexei ANGEL PATIENT REPEATEDLY VOICED THIS IS MY HOUSE AND I WILL DO WHAT I WANT.
--- NOTE | 2020-02-25 03:44 | NUR ---
RE ASSESS PATIENT APPEARS WITH DECREASED ANXIETY, NO FURTHER YELLING ,CONTINUES RESTLESS AND WANDERING IN WHEELCHAIR IN [place], DID AGREE TO GET DRESSED PRIOR TO COMING INTO HALLWAY.
--- NOTE | 2020-02-25 05:58 | NUR ---
P.I.R.P. P. ALTERATION IN MOOD I. PROVIDE EVERY 15 MINUTE CHECKS, PROVIDE SAFE ENVIRONMENT, PROVIDE MEDICATIONS SCHEDULED AND PRN ORDERED PER MD , PROVIDE TASK ORIENTED GROUP ACTIVITY AND ENCOURAGE PARTICIPATION, PROVIDE 1:1 INTERVENTION TO ALLOW PATIENT TO EXPRESS FEELINGS. MONITOR FOR CHANGES IN COGNITIVE. RE ORIENT AND REDIRECT NEEDED. R. PATIENT TOOK MEDS ORDERED, PRN ZYPREXA IM X 1 ADMINISTERED WAS UNABLE TO TAKE ORAL DUE TO BEHAVIORS/COGNITIVE. BEHAVIORS THIS SHIFT, YELLING UNDRESSING IN HALLWAY, ANXIETY, RESTLESSNESS, VISUAL HALLUCINATIONS, EXAMPLE PICKING AT THINGS NOT PRESENT ON THE FLOOR, UNABLE TO RE DIRECT PATIENT. MED WAS EFFECTIVE. PATIENT ORIENTED TO HERSELF, IS CONFUSED. HAS FREQUENT URINATION AND COMPLAINED X 1 OF BURNING ON URINATION, CRANBERRY JUICE GIVEN AND THIS HELPED PER PATIENT. P. CONTINUE CURRENT PLAN OF CARE
[2020-02-25] MEDS: HUMULIN R SQ SCH ×4 (07:30→20:03)
[2020-02-25 08:05] VITALS: BP 120/44
--- NOTE | 2020-02-25 08:07 | NUR ---
Nurse Note Patient in dining room asking for Juvenal. Redirection attempted at this time. Patient wanting to wander to look for juvenal.
[2020-02-25] MEDS: LOPRESSER PO SCH ×2 (08:39→20:01)
[2020-02-25] MEDS: DITROPAN PO SCH ×3 (08:39→20:00)
[2020-02-25] MEDS: IMDUR PO SCH (08:39)
[2020-02-25] MEDS ORDERED: AMARYL ONE (08:42)
[2020-02-25] MEDS: ZYPREXA ZYDIS SL PRN ×2 (08:56→20:00)
[2020-02-25] MEDS: AMARYL PO SCH (09:13)
--- NOTE | 2020-02-25 09:14 | NUR ---
behavior note: Patient wheeling down hallway looking for Antonietta. She is anxious and unable to redirect. She is confused and doesn't believe that she is a patient in the hospital. She is demanding that someone take her to [facility] to see Antonietta. Zyprexa 5 mg po PRN given for mentioned behaviors.
--- NOTE | 2020-02-25 13:54 | PRM.PN ---
Mood: mixed irritable in the morning Sleep: last night 2.5 hours at night, has napped in the day Appetite: no breakfast, well at lunch Suidical thoughts: does not make statements Homicidal thoughts: does not make statements Recent stressors: she preferred her own routine this morning Family support: no family calls today- Antonietta called yesterday Aggressive Behavior: short annoyed to staff, verbal aggression Ability to Perform ADL'sc: assist of 1 Psychotic sympstoms: perceptions not well Manic Symptoms: not able to rest at night Living situation: from snf Illicit Drug usec: na Alcoholo use: na Tobacco use: na Family,PT,Surgical,&Current HX: (1) Dementia (2) Delusional disorder (3) Combative behavior Anxity Symptoms: this morning fixated, anxious, confused, Anger/Irritablility: short annoyed at staff not with patients Muscle Strength & Tone: Rigidity Gait & Station: Ataxic Appearance: Well groomed/hygience Attitude & Behaviour: Uncooperative Mood & Affect: Constricted Orientation: Fully oriented per interv (she was oriented, but gets confused, perceptions not appearing accurate) Attention/Concentration: Poor attention, Poor concentration Speech: Impaired (from pressured to calm) Judgement/Insight: Fair judgement, Poor insight Thought Process: Circumferential Language: Gambian Thought content/Abnormal/Psych: Delusions Fund of Knowledge: WNL Associations: Other Constitutional: None Neurological: None Psychiatric: Psychosis [place] I: delusional, dementia, [place] IV: was at snf Assessment/Plan Assessment/Plan Plan Nursing: this morning verbally aggressive to staff but did well communicating with other patients prn zyprexa provided, not oriented, hallucination as she needed to go with "antonietta" avelina roman during the night, very little sleep during the night, IM at 3am, she asked to call Yi her daughter in law and told her Vital Signs Date Time Temp Pulse Resp B/P (MAP) Pulse Ox O2 Delivery O2 Flow Rate FiO2 02/25/20 08:39 52 120/44 02/25/20 08:05 98.0 18 100 02/24/20 19:41 Room Air Allergies Coded Allergies Type Severity Reaction Last Updated Verified azithromycin Allergy Unknown 02/21/20 Yes cyanocobalamin (vitamin B12) Allergy Unknown 02/21/20 Yes ferrous sulfate Allergy Unknown 02/21/20 Yes meperidine Allergy Unknown 02/21/20 Yes Current Medications Medications (Trade) Dose Ordered Sig/Colton PRN Reason Start Time Stop Time Status Last Admin Atorvastatin Calcium (Lipitor) 20 mg HS 02/22/20 21:00 03/23/20 20:59 02/24/20 20:16 Dextrose (Dextrose 50%-Water Syringe) 25 ml STAT PRN HYPOGLYCEMIA 02/22/20 21:30 03/23/20 21:29 Insulin Human Regular (Humulin R) Give 30 minutes before meal ACHS 02/23/20 07:30 03/24/20 07:29 02/25/20 11:47 Metformin HCl (Glucophage) 1,000 mg BID 02/23/20 09:00 03/24/20 08:59 Hold 02/23/20 08:08 Metoprolol Tartrate (Lopresser) 12.5 mg BID 02/23/20 09:22 03/24/20 08:59 02/25/20 08:39 Mirtazapine (Remeron) 7.5 mg HS 02/24/20 21:00 03/22/20 21:00 02/24/20 20:18 Psychotropics: olanzapine 5mg prn aricept 5mg po daily at hs remeron 7.5mg po daily at hs Summary: Mixed irritable and did not sleep last night but does appear she has improved some with prn olanzapine, (updated on condition in the morning, she did rest after 2nd dose of olanzapine, may consider depakote in the future) CONSENT: Consent was obtained by patient for telemedicine visit. Consent was obtained for the presence of staff member throughout encounter. Privacy was maintained throughout encounter PLAN: 1. CONTINUE BEHAVIORAL HEALTH MANAGEMENT. 2. CONTINUE CURRENT MEDICATIONS PRESCRIBED. STAFF AGREEABLE WITH PLAN- 3. ALL PATIENT QUESTIONS ANSWERED RELATED TO MEDICATIONS, PLAN OF CARE, AND EXPECTED OUTCOMES. 4. SAFETY PLAN DISCUSSED. 5. INCREASE ARICEPT TO 10MG DAILY AT HS JORGE CHARLES NP Feb 25, 2020 13:54
--- NOTE | 2020-02-25 17:20 | NUR ---
PIRP: P: ALTERED THOUGHT PROCESS I: PROVIDE MEDICATIONS ORDERED BY PHYSICIAN. ENCOURAGE ATTENDANCE AND PARTICIPATION OF ALL GROUPS. ALLOW PATIENT TO VOICE FEELINGS AND CONCERNS. PROVIDE SAFE ENVIRONMENT. MONITOR PATIENT FOR DEPRESSION, ANXIETY, SUICIDAL IDEATION, AND PSYCHOTIC SYMPTOMS. R: PATIENT TOOK MEDICATIONS ORDERED BY PHYSICIAN. SHE DID NOT PARTICIPATE IN GROUPS AND HAD A DIFFICULT TIME THIS MORNING REQUIRING ZYPREXA PRN. SEE PREVIOUS NOTE. SHE HAS BEEN UNABLE TO REDIRECT THIS MORNING AND HAS WANDERED THE HALLWAY. SHE HAS BEEN AGITATED TOWARDS STAFF. P: CONTINUE CURRENT PLAN OF CARE.
[2020-02-25 20:00] VITALS: BP 134/58
[2020-02-25] MEDS: REMERON PO SCH (20:00)
--- NOTE | 2020-02-25 20:00 | NUR ---
ANXIETY/PSYCHOSIS PATIENT AGITATION/ANXIOUS/PSYCHOTIC VOICING NERVOUS AND ANXIOUS , ZYPREXA 5 MG ORAL ADMINISTERED.
[2020-02-25] MEDS: LIPITOR PO SCH (20:02)
[2020-02-25] MEDS: ARICEPT ODT PO SCH (20:02)
--- NOTE | 2020-02-25 21:00 | NUR ---
FOLLOW UP PATIENT ANXIETY/RESTLESSNESS WITH DECREASE FROM ZYPREXA.
--- NOTE | 2020-02-26 05:27 | NUR ---
P.I.R.P. P. ALTERATION IN MOOD I. PROVIDE 1:1 INTERVENTION TO ALLOW PATIENT TO EXPRESS FEELINGS, PROVIDE SAFE ENVIRONMENT, PROVIDE EVERY 15 MINUTE CHECKS, PROVIDE PRN AND SCHEDULED MEDICATIONS ORDERED PER MD, EDUCATE ON MEDICATIONS, PROVIDE TASK ORIENTED GROUP ACTIVITIES AND ENCOURAGE PARTICIPATION. MONITOR FOR CHANGES IN MOOD, REDIRECT NEEDED. R. PATIENT TOOK MEDS ORDERED, REQUIRED X 1 PRN ZYPREXA FOR PSYCHOSIS/ANXIETY/RESTLESSNESS. PATIENT DID ATTEND GROUP ACTIVITY, LEFT TO GO TO BATHROOM AT TIMES, DID ENCOURAGE OTHER PATIENT ON TAKING MEDS. PATIENT DENIES HALLUCINATIONS, HAS FREQUENT URINATION DURING NIGHT CONTINUE. PATIENT HAS SLEPT 4.25 HOURS THUS FAR THIS SHIFT. Addendum: 02/26/20 at 0533 by TATIANA Abel RN P. CONTINUE CURRENT PLAN OF CARE
[2020-02-26 08:25] VITALS: BP 161/71
[2020-02-26] MEDS: HUMULIN R SQ SCH ×4 (08:29→20:16)
[2020-02-26] MEDS ORDERED: AMARYL ONE (08:30)
[2020-02-26] MEDS: LOPRESSER PO SCH ×2 (08:32→20:15)
[2020-02-26] MEDS: IMDUR PO SCH (08:33)
[2020-02-26] MEDS: DITROPAN PO SCH ×3 (08:33→20:14)
[2020-02-26] MEDS: AMARYL PO SCH (08:33)
--- NOTE | 2020-02-26 10:26 | PRM.PN ---
Mood: "not good" Sleep: 4.25 hours "I am tired" no to sleeping well Appetite: repeats blood sugar number wrong, "not good" Suidical thoughts: denies Homicidal thoughts: denies Recent stressors: all of it Family support: Catarina takes care of me- son's , she don't care Aggressive Behavior: denies Ability to Perform ADL'sc: hospital "that where they take care of me" Psychotic sympstoms: somewhat admits to Ah, then changes the subject Manic Symptoms: mild irritable mixed Living situation: lives at [facility] Illicit Drug usec: na Alcoholo use: na Tobacco use: na Family,PT,Surgical,&Current HX: (1) Dementia (2) Delusional disorder (3) Combative behavior Anxity Symptoms: "I don't worry about nothing, what will be will be" Anger/Irritablility: mildly annoyed, overwhelmed with questions Muscle Strength & Tone: Rigidity Gait & Station: Ataxic Appearance: Appears older Attitude & Behaviour: Cooperative/Pleasant (can appear overwhelmed with questions, ), Poor eye contact Mood & Affect: Constricted Orientation: Disoriented to situation (her memory- situation can change by minute, ) Attention/Concentration: Poor attention, Fair concentration Speech: Reg rate/vol/rhyth/prosod Judgement/Insight: Fair judgement, Poor insight Thought Process: Circumferential Language: Greenlandic Thought content/Abnormal/Psych: Delusions Fund of Knowledge: WNL Associations: Other Constitutional: None Neurological: None Psychiatric: Psychosis [place] I: dementia, delusional disorder [place] IV: lives at [facility] Assessment/Plan Assessment/Plan Plan Nursing: today she has done well not irritable this morning, has not been short with staff, tolerated assist well, was grateful for care, she ate a good breakfast, sx, she starts looking for juvenal, why am I here, disorientation this morning, she is aware of her name, 8pm po zyprexa, Vital Signs Date Time Temp Pulse Resp B/P (MAP) Pulse Ox O2 Delivery O2 Flow Rate FiO2 02/26/20 08:33 161/71 02/26/20 08:32 74 02/26/20 08:25 97.5 18 95 Room Air Allergies Coded Allergies Type Severity Reaction Last Updated Verified azithromycin Allergy Unknown 02/21/20 Yes cyanocobalamin (vitamin B12) Allergy Unknown 02/21/20 Yes ferrous sulfate Allergy Unknown 02/21/20 Yes meperidine Allergy Unknown 02/21/20 Yes Current Medications Medications (Trade) Dose Ordered Sig/Colton PRN Reason Start Time Stop Time Status Last Admin Donepezil HCl (Aricept Odt) 10 mg HS 02/25/20 21:00 03/26/20 20:59 02/25/20 20:02 Mirtazapine (Remeron) 7.5 mg HS 02/24/20 21:00 03/22/20 21:00 02/25/20 20:00 Psychotropics: olanzapine 5mg prn aricept 10mg po daily at hs remeron 7.5mg po daily at hs Summary: orientation can appear to change quickly answers correctly but within seconds talks of situation with daughter, can be more demanding, worse at CONSENT: Consent was obtained by patient for telemedicine visit. Consent was obtained for the presence of staff member throughout encounter. Privacy was maintained throughout encounter PLAN: 1. CONTINUE BEHAVIORAL HEALTH MANAGEMENT. 2. CONTINUE CURRENT MEDICATIONS PRESCRIBED. STAFF AGREEABLE WITH PLAN- 3. ALL PATIENT QUESTIONS ANSWERED RELATED TO MEDICATIONS, PLAN OF CARE, AND EXPECTED OUTCOMES. 4. SAFETY PLAN DISCUSSED 5. depakote sprinkles 125mg 1pm- , more aggressive 6. Medical consulted- metformin on hold due to creatinine in er- JORGE CHARLES NP Feb 26, 2020 10:26
--- NOTE | 2020-02-26 11:00 | NUR ---
Metformin Metformin had been held secondary to Creatinine of 1.59 on 02/21/2020. Dr. Land notified of the same. Orders received for a repeat BMP to be drawn AM 02/27/2020.
--- NOTE | 2020-02-26 12:08 | NUR ---
Insulin Insulin held due to patient refused to eat. FSBS 163
[2020-02-26] MEDS ORDERED: DEPAKOTE SPRINKLE PO SCH (13:00)
[2020-02-26] MEDS ORDERED: DUO 0.5-3(2.5) MG/3 ML IH PRN (14:30)
--- NOTE | 2020-02-26 17:03 | NUR ---
PIRP: P: ALTERED THOUGHT PROCESS I: PROVIDE MEDICATIONS ORDERED BY PHYSICIAN. ENCOURAGE ATTENDANCE AND PARTICIPATION OF ALL GROUPS. ALLOW PATIENT TO VOICE FEELINGS AND CONCERNS. PROVIDE SAFE ENVIRONMENT. MONITOR PATIENT FOR DEPRESSION, ANXIETY, SUICIDAL IDEATION, AND PSYCHOTIC SYMPTOMS. R: PATIENT HAS TAKEN ALL MEDICATIONS ORDERED. SHE HAS BEEN COOPERATIVE AND PLEASANT TODAY. SHE CONTINUES TO STAND UP WITHOUT LOCKING HER WHEELCHAIR WHEELS PUTTING HERSELF AT RISK OF FALLING. DEPAKOTE 125 MG PO STARTED TODAY AT 1300 FOR BEHAVIOR. PATIENT HAS BEEN UP IN DAYROOM OFTEN HOWEVER SHE HAS RETREATED TO HER ROOM FOR NAPS. SHE CONTINUES TO REQUIRE ASSISTANCE IN THE BATHROOM DUE TO WEAK GAIT AND ASSISTANCE WITH PULLING DEPEND UP. P: CONTINUE CURRENT PLAN OF CARE.
[2020-02-26 20:00] VITALS: BP 128/74
[2020-02-26] MEDS: LIPITOR PO SCH (20:14)
[2020-02-26] MEDS: ARICEPT ODT PO SCH (20:14)
[2020-02-26] MEDS: REMERON PO SCH (20:14)
--- NOTE | 2020-02-27 05:39 | NUR ---
pirp- P- ALTERED THOUGHT PROCESS I-PROVIDE SAFE AND SUPPORTIVE ENVIRONMENT,PROVIDE MEDICATION ORDERED AND Q 15 MIN. MONITORING R- PT. ORIENTED TIMES THREE. DENIES DEPRESSION AND ANXIETY. ATTENDED GROUP AND PARTICIPATED IN GROUP ACTIVITIES. MEDICATION EDUCATION PROVIDED AND PT. TOOK MEDICATION ORDERED. PT. HAS URINATED 14 TIMES THIS SHIFT. HAS RESTED IN BED 2.5 HOURS THIS SHIFT.PT. EXHIBITED AGITATION THIS A.M. ,WHEN SHE ASK STAFF WAS MR. YOUNGBLOOD STILL ALIVE AND [place] N[place] [facility] [place]URSE TOLD HER I DID NOT KNOW MR. YOUNGBLOOD AND I HAVE [place] [facility] [place] P- WILL CONTINUE TO PROVIDE 1:1 INTERACTION WITH PT. ALLOWING PT. TO EXPRESS THOUGHTS AND FEELINGS.
[2020-02-27 05:58] LABS: CALCIUM 8.7 mg/dL (8.4-10.5)
[2020-02-27] MEDS: HUMULIN R SQ SCH ×4 (07:30→20:58)
[2020-02-27 08:14] VITALS: BP 143/72
[2020-02-27] MEDS ORDERED: AMARYL ONE (08:32)
[2020-02-27] MEDS: IMDUR PO SCH (08:34)
[2020-02-27] MEDS: LOPRESSER PO SCH ×2 (08:35→20:58)
[2020-02-27] MEDS: AMARYL PO SCH (08:35)
[2020-02-27] MEDS: DITROPAN PO SCH ×3 (08:35→20:59)
--- NOTE | 2020-02-27 09:50 | PRM.PN ---
Mood: yes good mood, I am not sad, Sleep: 3 hours, up urinating, Appetite: I don't eat much, I never have Suidical thoughts: denies Homicidal thoughts: denies Recent stressors: worry about everything, Family support: daughter and brothers, father and mother they call and check on me Aggressive Behavior: denies Ability to Perform ADL'sc: assist of staff members Psychotic sympstoms: disoriented, Manic Symptoms: not exit seeking today Living situation: lives at [facility] Illicit Drug usec: na Alcoholo use: na Tobacco use: na Family,PT,Surgical,&Current HX: (1) Delusional disorder (2) Dementia (3) Combative behavior Anxity Symptoms: wish I could work, when you are crippled like me you worry Anger/Irritablility: denies Muscle Strength & Tone: Rigidity Appearance: Well groomed/hygience Attitude & Behaviour: Cooperative/Pleasant Mood & Affect: Full Orientation: Disoriented to time Attention/Concentration: Fair attention, Fair concentration Speech: Reg rate/vol/rhyth/prosod Judgement/Insight: Fair judgement, Poor insight Thought Process: Circumferential Language: Yakut Thought content/Abnormal/Psych: Delusions Fund of Knowledge: WNL Associations: Other Constitutional: None Neurological: None Psychiatric: Psychosis (does not stay oriented, but often know place, year) [place] I: dementia, delusional disorder [place] IV: lives at [facility] Assessment/Plan Assessment/Plan Plan Nursing: not combative during the night slept 4 hours, last night kept getting up to urinate, 14 times, saying she is going home today, asks another patient if they get to be discharged after she comes out of conference room Patient: the reason I am here is to get my medications, and then I will go home not sure if there are any to pick, denies pain- "I had good luck with that medication so far" reports parents are supports, they live around [place], I see them often, they says she cannot hear well, knows February how old are you? 89, Jimmie jose guadalupe I will be 89 last bm- 20 seconds ago, before I came here breakfast this morning- part of scrambled egg, diaz and toast, oj, "I love coffee" Vital Signs Date Time Temp Pulse Resp B/P (MAP) Pulse Ox O2 Delivery O2 Flow Rate FiO2 7/6/20 08:35 69 143/72 02/27/20 08:14 97.5 16 98 Room Air Allergies Coded Allergies Type Severity Reaction Last Updated Verified azithromycin Allergy Unknown 02/21/20 Yes cyanocobalamin (vitamin B12) Allergy Unknown 02/21/20 Yes ferrous sulfate Allergy Unknown 02/21/20 Yes meperidine Allergy Unknown 02/21/20 Yes Current Medications Medications (Trade) Dose Ordered Sig/Colton PRN Reason Start Time Stop Time Status Last Admin Divalproex Sodium (Depakote Sprinkle) 125 mg 1300 02/27/20 13:00 03/23/20 21:00 Donepezil HCl (Aricept Odt) 10 mg HS 02/25/20 21:00 03/26/20 20:59 02/26/20 20:14 Mirtazapine (Remeron) 7.5 mg HS 02/24/20 21:00 03/22/20 21:00 02/26/20 20:14 Psychotropics: olanzapine 5mg prn aricept 10mg po daily at hs remeron 7.5mg po daily at hs Summary: question, anticholinergic side effects,was up and urinating during th e night- could be related to previous day of prn olanzapine reports she urinates more with nervous, reports not sleeping as good when away from home, oriented some but quickly loses orientation, says year correctly right after dad is 100 and mother is 94, CONSENT: Consent was obtained by patient for telemedicine visit. Consent was obtained for the presence of staff member throughout encounter. Privacy was maintained throughout encounter PLAN: 1. CONTINUE BEHAVIORAL HEALTH MANAGEMENT. 2. CONTINUE CURRENT MEDICATIONS PRESCRIBED. STAFF AGREEABLE WITH PLAN- 3. ALL PATIENT QUESTIONS ANSWERED RELATED TO MEDICATIONS, PLAN OF CARE, AND EXPECTED OUTCOMES. 4. SAFETY PLAN DISCUSSED JORGE CHARLES NP Feb 27, 2020 09:50
--- NOTE | 2020-02-27 10:45 | NUR ---
TELEMED PT WAS SEEN BY Esther CHARLES NP. NO NEW ORDERS RECEIVED @ THIS TIME, PLANS FOR POSSIBLE DISCHARGE BACK TO [facility] ON 02/29/2020.
[2020-02-27] MEDS ORDERED: DEPAKOTE SPRINKLE PO SCH (13:00)
--- NOTE | 2020-02-27 16:49 | NUR ---
PIRP P: ALTERATION IN MOOD I: Q15 MIN MONITORING, ASSESS FOR DEPRESSION, PROVIDE SAFE AND SUPPORTIVE ENVIRONMENT, PROVIDE TASK-ORIENTED ACTIVITIES, RE-ORIENT TO SURROUNDINGS NEEDED, ALTERNATE REST/ACTIVITY, GIVE CLEAR AND SIMPLE INSTRUCTIONS, REINFORCE FALL PREVENTION TECHNIQUES, REDIRECT WITH VERBALIZATION, PROVIDE 1:1 TO ENCOURAGE EXPRESSION OF FEELINGS, GIVE MEDICATIONS ORDERED R: PT HAS BRIGHT, PLEASANT AFFECT THROUGHOUT SHIFT. HAS WITHDRAWN TO ROOM THROUGHOUT SHIFT, REPORTS FEELING "TIRED." STATES, "I HARDLY SLEPT LAST NIGHT." PT DENIES FEELINGS OF DEPRESSION, REPORTS FEELING ANXIOUS "ALL THE TIME ABOUT THE FUTURE, DOESN'T EVERYONE?" NO HALLUCINATIONS OR DELUSIONS NOTED, ALERT AND ORIENTED X 3, FORGETFUL AT TIMES. HAS PARTICIPATED IN SOME GROUP ACTIVITIES WITH PROMPTING, TAKES MEDICATIONS ORDERED, AND HAS BEEN COOPERATIVE WITH ADLS. P: PROVIDE TASK-ORIENTED ACTIVITIES, RE-ORIENT TO SURROUNDINGS NEEDED
[2020-02-27 20:00] VITALS: BP 114/54
[2020-02-27] MEDS: REMERON PO SCH (20:59)
[2020-02-27] MEDS: ARICEPT ODT PO SCH (20:59)
[2020-02-27] MEDS: LIPITOR PO SCH (20:59)
[2020-02-27] MEDS: ZYPREXA ZYDIS SL PRN (23:48)
--- NOTE | 2020-02-27 23:48 | NUR ---
PRN OLANZAPINE GIVEN FOR AGITATION. PT WAS ACTING OUT, RESTLESS WELL YELLING AT STAFF AND BECAME AGITATED AT STAFF WHEN HELPING HER TO THE BATHROOM. STAFF TRIED TO REDIRECT PT BUT PT WAS NOT REFRACTABLE.
--- NOTE | 2020-02-28 00:39 | NUR ---
PIRP- P- ALTERED THOUGHT PROCESS I- PROVIDE SAFE AND SUPPORT ENVIRONMENT,PROVIDE MEDICATION ORDERED AND Q 15 MIN. MONITORING R- PT. ORIENTED TIMES THREE. DENIES DEPRESSION AND ANXIETY. ATTENDED GROUP,ATE SNACKS AND PARTICIPATED IN GROUP ACTIVITY.MEDICATION EDUCATION PROVIDED AND PT. TOOK MEDICATION ORDERED. AFTER PT. WENT TO HER ROOM , PT. 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 PT. BECAME AGITATED WHEN NURSE TOLD HER I DID NOT HAVE A SON. PT. STATED I WAS NOT TELLING HER THE TRUTH. PT. GETS AGITATED WITH REDIRECTION. PT. LOUDLY YELLED AT STAFF .FREQUENTLY.ZYPREXA PO PRN MEDICATION GIVEN PT.LYING IN BED ,AWAKE, AT THIS TIME. PT. CONTINUE P- WILL CONTINUE TO PROVIDE 1:1 INTERVENTION ALLOWING PT. TO EXPRESS THOUGHTS AND FEELINGS.
--- NOTE | 2020-02-28 00:48 | NUR ---
FOLLOW UP MEDICATION AFFECTIVE IN RELIEVING AGITATION.
[2020-02-28] MEDS: HUMULIN R SQ SCH ×4 (07:30→20:01)
[2020-02-28 07:45] VITALS: BP 169/74
[2020-02-28] MEDS ORDERED: AMARYL ONE (08:42)
[2020-02-28] MEDS: DITROPAN PO SCH ×3 (08:45→20:31)
[2020-02-28] MEDS: LOPRESSER PO SCH ×2 (08:45→20:31)
[2020-02-28] MEDS: AMARYL PO SCH (08:45)
[2020-02-28] MEDS: IMDUR PO SCH (08:45)
--- NOTE | 2020-02-28 11:25 | PRM.PN ---
Mood: good Sleep: 5 hours Appetite: good Suidical thoughts: denies, Homicidal thoughts: denies Recent stressors: nahh, Family support: not talked to family, my daughter Aggressive Behavior: has not tried to hit anyone Ability to Perform ADL'sc: staff assist Psychotic sympstoms: became irritable with re-orientation Manic Symptoms: mixed irritable, less Living situation: lives at snf Illicit Drug usec: na Alcoholo use: na Tobacco use: na Family,PT,Surgical,&Current HX: (1) Delusional disorder (2) Dementia (3) Combative behavior Anxity Symptoms: she was more anxious last night Anger/Irritablility: denies what's the use, Muscle Strength & Tone: Rigidity Gait & Station: Ataxic Appearance: Well groomed/hygience Attitude & Behaviour: Cooperative/Pleasant Mood & Affect: Constricted Orientation: Disoriented to place, Disoriented to time Attention/Concentration: Fair attention, Poor concentration Speech: Impaired (today speech goes to mumble by end of sentence, forgetting thoughts quicker) Judgement/Insight: Fair judgement, Poor insight Thought Process: Circumferential Language: Kyrgyz Thought content/Abnormal/Psych: Delusions Fund of Knowledge: WNL Associations: Other Constitutional: None Neurological: None Psychiatric: Psychosis (does not stay oriented, ) [place] I: dementia and delusional disorder, [place] IV: lives at [facility] Assessment/Plan Assessment/Plan Plan Nursing: she has been alright today last night hollering out, then request something simple, fix blanket, Patient: says larry doing pretty good, will wonder off in speech, oh boy did I ever enjoy her coffee, breakfast- good, I don't eat egg, at home- cereal a lot- raisin bran Vital Signs Date Time Temp Pulse Resp B/P (MAP) Pulse Ox O2 Delivery O2 Flow Rate FiO2 02/28/20 08:45 78 169/74 02/28/20 07:45 97.5 18 97 Room Air Allergies Coded Allergies Type Severity Reaction Last Updated Verified azithromycin Allergy Unknown 02/21/20 Yes cyanocobalamin (vitamin B12) Allergy Unknown 02/21/20 Yes ferrous sulfate Allergy Unknown 02/21/20 Yes meperidine Allergy Unknown 02/21/20 Yes Current Medications Medications (Trade) Dose Ordered Sig/Colton PRN Reason Start Time Stop Time Status Last Admin Divalproex Sodium (Depakote Sprinkle) 125 mg 1300 02/27/20 13:00 03/23/20 21:00 02/27/20 13:17 Donepezil HCl (Aricept Odt) 10 mg HS 02/25/20 21:00 03/26/20 20:59 02/27/20 20:59 Psychotropics: depakote sprinkles bid, afternoon and hs olanzapine 5mg prn aricept 10mg po daily at hs remeron 7.5mg po daily at hs Summary: today her verbalization will stop or mumble as she forgets her thought process, knows [facility]- we are in "no I don't know" CONSENT: Consent was obtained by patient for telemedicine visit. Consent was obtained for the presence of staff member throughout encounter. Privacy was maintained throughout encounter PLAN: 1. CONTINUE BEHAVIORAL HEALTH MANAGEMENT. 2. CONTINUE CURRENT MEDICATIONS PRESCRIBED. STAFF AGREEABLE WITH PLAN- 3. ALL PATIENT QUESTIONS ANSWERED RELATED TO MEDICATIONS, PLAN OF CARE, AND EXPECTED OUTCOMES. 4. SAFETY PLAN DISCUSSED 5. SCHEDULE VALPROIC ACID, CBC, CMP, RULE OUT CHANGED SECONDARY TO MEDICATIONS 6. Increase depakote er 125mg bid, 1300 and 2100 mixed irritable, prn was still needed, hours appear the worst, JORGE CHARLES PIPE MAKER Feb 28, 2020 11:25
[2020-02-28] MEDS: DEPAKOTE SPRINKLE PO SCH ×2 (12:24→20:32)
--- NOTE | 2020-02-28 16:27 | NUR ---
PIRP P: ALTERATION IN MOOD I: Q15 MIN MONITORING, ASSESS FOR DEPRESSION, PROVIDE SAFE AND SUPPORTIVE ENVIRONMENT, PROVIDE TASK-ORIENTED ACTIVITIES, RE-ORIENT TO SURROUNDINGS NEEDED, ALTERNATE REST/ACTIVITY, GIVE CLEAR AND SIMPLE INSTRUCTIONS, REINFORCE FALL PREVENTION TECHNIQUES, REDIRECT WITH VERBALIZATION, PROVIDE 1:1 TO ENCOURAGE EXPRESSION OF FEELINGS, GIVE MEDICATIONS ORDERED R: PT HAS BRIGHT AFFECT THROUGHOUT SHIFT. EXHIBITS INCREASED RESTLESSNESS AND SPORADIC EPISODES OF IRRITABILITY IN LATE AFTERNOON, HAS BEEN ABLE TO BE REDIRECTED WITH VERBALIZATION. HAS NOT EXHIBITED THREATENING OR COMBATIVE BEHAVIORS, COOPERATIVE WITH ADLS. NO HALLUCINATIONS OR DELUSIONS NOTED. DENIES FEELINGS OF DEPRESSION, ANXIETY, SI/HI. REMAINS ALERT AND ORIENTED X 3, BUT HAS POOR SHORT TERM MEMORY. PT IS INTRUSIVE WITH OTHER PT'S AT TIMES, BUT HAS BEEN ABLE TO BE REDIRECTED. P: DEPAKOTE INCREASED TO BID AT 1300 AND 2100, SEE EMR.
[2020-02-28 20:00] VITALS: BP 174/65
[2020-02-28] MEDS: REMERON PO SCH (20:32)
[2020-02-28] MEDS: LIPITOR PO SCH (20:32)
[2020-02-28] MEDS: ARICEPT ODT PO SCH (20:32)
[2020-02-29] MEDS: ZYPREXA ZYDIS SL PRN ×2 (00:03→19:51)
--- NOTE | 2020-02-29 00:03 | NUR ---
PRN ZYPREXA GIVEN TO PT FOR RESTLESSNESS AND AGITATION. PT WAS YELLING AT STAFF, SHAKING FIST AT STAFF. PT WAS NOT ABLE TO BE REDIRECTED AFTER SEVERAL ATTEMPTS. PT WAS GETTING UP OUT OF BED INTO HER WHEEL CHAIR CONSTANTLY AND ONLY STAYING A FEW MINUTES WELL TOSSING AND TURNING IN BED.
--- NOTE | 2020-02-29 01:37 | NUR ---
FOLLOW UP SUSAN AFFECTIVE
--- NOTE | 2020-02-29 05:38 | NUR ---
PIRP- P- ALTERED THOUGHT PROCESS I- PROVIDE SAFE AND SUPPORTIVE ENVIRONMENT,PROVIDE MEDICATION ORDERED AND Q 15 MIN. MONITORING R- PT. ORIENTED TIMES THREE. DENIED DEPRESSION AND ANXIETY. ATTENDED GROUP,ATE SMALL SNACK AND WANDERING IN W/C IN DAY ROOM . PT . WHEELED UP TO PEERS AND STAFF AT TIMES ALMOST RUNNING OVER THEIR FEET. WHEN STAFF REDIRECTED HER SHE LOOKS UP AND GRINS AND SHOOK HER FIST ONCE AT STAFF. FREQUENT REDIRECTING REQUIRED. PT. HAS RESTED IN BED WITH EYES CLOSED SPORADICALLY FOR 3 HOURS . HAS BEEN TO BR TO URINATE 13 TIMES WITH ASSIST OF STAFF. PT. TELLS STAFF TO GET AWAY WHEN STAFF IS PUTTING BRIEF ON PT. PT. IS AWAKE AND SITTING IN W/C AT THIS TIMES,TRYING TO GET UP AND WALK SAYING THERE IS NOTHING WRONG WITH HER THAT SHE CAN WALK BUT PT. REMAINS A FALL RISK. BED ALARM IN USE, WEARING YELLOW NON SKID SOCKS AND BED IN LOW POSITION. PT. STATING SHE HAS TO GO BECAUSE SHE HAS TO GO TO WORK. DIFFICULT TO REDIRECT. P- WILL CONTINUE TO PROVIDE 1:1 INTERVENTION ALLOWING PT. TO EXPRESS THOUGHTS AND FEELINGS.
[2020-02-29] MEDS: HUMULIN R SQ SCH ×4 (07:30→20:06)
[2020-02-29] MEDS: AMARYL PO SCH (09:00)
[2020-02-29 09:42] VITALS: BP 173/70
[2020-02-29] MEDS ORDERED: AMARYL ONE (09:48)
[2020-02-29] MEDS: LOPRESSER PO SCH ×2 (09:48→20:05)
[2020-02-29] MEDS: IMDUR PO SCH (09:48)
[2020-02-29] MEDS: DITROPAN PO SCH ×3 (09:50→20:04)
--- NOTE | 2020-02-29 11:03 | DIET.OP ---
Nutrition Asmt/Malnutrit 2-17 Actual Date of Review: Feb 29, 2020 Nutritional Screening: Other (LOS) Diagnosis: delusion disorder Pertinent Medical Hx/Surgical: DM, HTN Subjective Information: Resident of [facility] Current Diet Order/Nutrition S: 1600 ADA Patient /S.O: Not Indicated Pertinent Meds Current Medications Medications (Trade) Dose Ordered Sig/Colton PRN Reason Start Time Stop Time Status Last Admin Divalproex Sodium (Depakote Sprinkle) 125 mg 1300,2100 02/28/20 13:00 03/23/20 21:00 02/28/20 20:32 Pertinent Labs Laboratory Tests Test 02/27/20 13:02 02/27/20 17:14 02/27/20 19:20 02/28/20 07:43 Bedside Glucose 250 90 136 131 Test 02/28/20 11:50 02/28/20 16:38 02/28/20 19:29 02/29/20 09:33 Bedside Glucose 264 154 294 114 Laboratory Tests 02/28/20 11:50: Bedside Glucose 264H 02/28/20 16:38: Bedside Glucose 154H 02/28/20 19:29: Bedside Glucose 294H 02/29/20 09:33: Bedside Glucose 114H Height (Feet): 5 Height (Inches): 5 Current Weight: 5 %IBW: 108 Recent Weight Change: No Weight Status: Appropriate GI Symptoms: None Food Allergies: No Cultural/Ethnic/Cheondoism [place]: no pertinent info Usual Diet at Home: regular Current %PO: Good(75-100%) BEE in Kcals: Use Current Weight Calories/Kcals/Kg: MSJ*1-1.4 Kcals Calculated: 2278-0214 Protein: Use Current Weight Protein g/kg/kg-35% Protein Calculated: 62-129 Fluid: ml: 8897-1189 ml 130-240 g carbs Nutritional Problem: Nutr. Problems Present Problems: Altered nutr related lab values (blood glucose) Etiology: elevated blood glucose Signs/Symptoms: blood glucose 114-294 Is there a minimum of two crit: No RD Comments: continue current diet Expected Outcomes 1. blood sugars will be below 180 next 7 days discharge planning in progress with interdisciplinary team Malnutrtion/Nutrition Risk Edu: CAROLYNN Schulz Feb 29, 2020 11:03
[2020-02-29] MEDS: DEPAKOTE SPRINKLE PO SCH ×2 (12:31→20:03)
--- NOTE | 2020-02-29 13:59 | PRM.PN ---
Mood: pleasant with other patients Sleep: 3 hours, did not fall asleep until 1am Appetite: well Suidical thoughts: does not make statements Homicidal thoughts: does not make statements Recent stressors: says she needs to be going home, Family support: daughter in law Aggressive Behavior: not been aggressive Ability to Perform ADL'sc: assist of staff, can be short with staff Psychotic sympstoms: does not stay oriented, Manic Symptoms: less demanding, Living situation: lives in snf Illicit Drug usec: na Alcoholo use: na Tobacco use: na Family,PT,Surgical,&Current HX: (1) Dementia (2) Delusional disorder (3) Combative behavior Anxity Symptoms: during the night, Anger/Irritablility: less Muscle Strength & Tone: Rigidity Gait & Station: Ataxic Appearance: Well groomed/hygience Attitude & Behaviour: Cooperative/Pleasant Mood & Affect: Full Orientation: Disoriented to place, Disoriented to time Attention/Concentration: Fair attention, Poor concentration Speech: Reg rate/vol/rhyth/prosod Judgement/Insight: Poor judgement, Poor insight Thought Process: Circumferential Language: Ukrainian Thought content/Abnormal/Psych: Delusions Fund of Knowledge: WNL Associations: Other Constitutional: None Neurological: None Psychiatric: Psychosis (does not stay oriented ) [place] I: dementia, delusional disorder [place] IV: lives at snf Assessment/Plan Assessment/Plan Plan Nursing: zyprexa prn given at midnight last night, she did not fall asleep until after 1am, she did not stay sleeping long not physically aggressive today she has been pleasant with other patients, she was awake and participating in the morning her bp medications have been held to creatinine, - bp was elevated at the mo rning hour, Vital Signs Date Time Temp Pulse Resp B/P (MAP) Pulse Ox O2 Delivery O2 Flow Rate FiO2 02/29/20 09:48 85 173/70 02/29/20 09:42 98.1 18 98 Room Air Allergies Coded Allergies Type Severity Reaction Last Updated Verified azithromycin Allergy Unknown 02/21/20 Yes cyanocobalamin (vitamin B12) Allergy Unknown 02/21/20 Yes ferrous sulfate Allergy Unknown 02/21/20 Yes meperidine Allergy Unknown 02/21/20 Yes Current Medications Medications (Trade) Dose Ordered Sig/Colton PRN Reason Start Time Stop Time Status Last Admin Divalproex Sodium (Depakote Sprinkle) 125 mg 1300,2100 02/28/20 13:00 03/23/20 21:00 02/29/20 12:31 Psychotropics: depakote sprinkles 125mg bid, afternoon and hs olanzapine 5mg prn aricept 10mg po daily at hs remeron 7.5mg po daily at hs - stopped has not been consistently helpful with sleep Summary: today her verbalization will stop or mumble as she forgets her thought process, knows [address] [place] [address]- we are in "no I don't know" CONSENT: Consent was obtained by patient for telemedicine visit. Consent was obtained for the presence of staff member throughout encounter. Privacy was maintained throughout encounter PLAN: 1. CONTINUE BEHAVIORAL HEALTH MANAGEMENT. 2. CONTINUE CURRENT MEDICATIONS PRESCRIBED. STAFF AGREEABLE WITH PLAN- 3. ALL PATIENT QUESTIONS ANSWERED RELATED TO MEDICATIONS, PLAN OF CARE, AND EXPECTED OUTCOMES. 4. SAFETY PLAN DISCUSSED 5. SCHEDULE VALPROIC ACID, CBC, CMP, RULE OUT CHANGED SECONDARY TO MEDICATIONS 6. stop remeron it has not appeared consistently helpful 7. quetiapine 25mg po daily at night, sleep, behaviors of dementia 8. bp is elevated although this was after a night of not sleeping recheck manual bp, draw a bmp to monitor bun/creat and any changes in electrolytes, if you no improvement will request assistance from medical hospitalist 9. if bun/creat remain elevated, may need to consider aricept as a cause, it may need to be stopped, 02/29/2020 Nursing staff updated provider 1700- bun has increased, creat remains high, ration remains wnl, manual bp this evening 117/63 P 96 1; please push fluids 2. stop aricept which may be elevating bun and creatinine 3. bmp tomorrow morning, Young [facility]HCNS JORGE CHARLES NP Feb 29, 2020 13:59
--- NOTE | 2020-02-29 15:07 | NUR ---
PIRP: P: ALTERED THOUGHT PROCESS I: PROVIDE MEDICATIONS ORDERED BY PHYSICIAN. ENCOURAGE ATTENDANCE AND PARTICIPATION OF ALL GROUPS. ALLOW PATIENT TO VOICE FEELINGS AND CONCERNS. PROVIDE SAFE ENVIRONMENT. MONITOR PATIENT FOR DEPRESSION, ANXIETY, SUICIDAL IDEATION, AND PSYCHOTIC SYMPTOMS. R: PATIENT HAS TAKEN ALL MEDICATIONS ORDERED AND HAS BEEN COOPERATIVE TODAY. SHE HAS BEEN UP FOR LUNCH AND DINNER BUT THEN RETREATED BACK TO BED TO REST. PATIENT DID NOT SLEEP WELL LAST NIGHT AND CHRISTIANA CHARLES RAILROAD FIRER MADE MEDICATION CHANGES DISCONTINUE REMERON AND START SEROQUEL MG PO HS. BMP TO BE DRAWN TODAY.PATIENT DENIES DEPRESSION, ANXIETY. DEPRESSION, AND SUICIDAL IDEATION. P: CONTINUE CURRENT PLAN OF CARE.
[2020-02-29 16:21] LABS: CALCIUM 8.9 mg/dL (8.4-10.5); CARBON DIOXIDE 27.4 mmol/L (20.0-32)
--- NOTE | 2020-02-29 17:00 | NUR ---
NOTIFIED DR. STOVER: DR. STOVER NOTIFIED OF METFORMIN, HYDROCHLOROTHIAZIDE, LOSARTAN POTASSIUM, LISINOPRIL, AMLODIPINE STILL ON HOLD. REQUESTED THAT HE REVIEW LABS. INFORMED DR STOVER THAT CHRISTIANA HAD DISCONTINUED ARICEPT D/T INCREASED CREATININE 1.68. bp 117/63, p96
--- NOTE | 2020-02-29 19:55 | NUR ---
Behaviors pt is exhibiting inappropriate behavior this shift, yelling out at times, attempting to get out of chair pt becomes agitated with redirection and received PRN Zyprexa at this time will cont to monitor pt.s behavior
[2020-02-29] MEDS ORDERED: SEROQUEL ONE (19:57)
[2020-02-29 20:00] VITALS: BP 140/91
[2020-02-29] MEDS: SEROQUEL PO SCH (20:04)
[2020-02-29] MEDS: LIPITOR PO SCH (20:06)
--- NOTE | 2020-02-29 21:35 | NUR ---
Medication pt received new medication [place] osborn, unable to determine how much pt comprehends will monitor pt. for any side affects
--- NOTE | 2020-03-01 00:20 | NUR ---
PIRP P- ALTERED THOUGHT PROCESS I- PROVIDE SAFE AND SUPPORTIVE ENVIRONMENT,PROVIDE MEDICATION ORDERED AND Q 15 MIN. MONITORING R- PATIENT ORIENTED TO NAME AND TIME AND MONTH. DOES NOT KNOW DAY. AT BEGINNING OF SHIFT PATIENT WAS TALKATIVE, SMILING AND WAVING. PATIENT DELUSIONAL AND TALKATIVE ABOUT SHOPPING EARLIER TODAY AND TOMORROW BUYING HER JEANS. WRITING NURSE A CHECK AND PAYING FOR CLOTHING THEY HAD PICKED UP FOR HER EARLIER. FREQUENTLY STANDING UP WHILE STAFF ASSISTING BY HER AND YELLING I'M FALLING. HAD PM SNACK AND ATTENDED GROUP AND PARTICIPATED IN ARM EXERCISES AND VOLLEYBALL. WENT TO ROOM AND BRUSHED TEETH AND COMBED HAIR WITH NURSE AT STANDBY. TOOK MEDS APPROPRIATELY. GIVEN PRN MED FOR ANXIETY AND STARTED ON SEROQUEL FOR HELP WITH SLEEPING, WHICH HAS BEEN INEFFECTIVE. PATIENT HAS NOT REMAINED IN THE BED ASLEEP AT THIS TIME FOR MORE THAN 15 MINUTES AT A TIME, OFTEN UP AND DOWN EVERY 1-2 MINUTES. SINCE START OF SHIFT SHE HAS BEEN UP TO [facility] AT LEAST 10 TIMES AT HALF SHIFT. PATIENT CONSTANTLY COMPLAINING OF FREEZINE AND COLD AFTER GOING TO BED AND WANTS NURSE TO PLUG HER ELECTRIC BLANKET IN. PATIENT EVENTUALLY CHANGED FROM GOWN TO TSHIRT BECAUSE OF AGITATION WITH GOWN AND THEN EVENTUALLY NAKED AND REFUSING TO WEAR BRIEF AFTER GOING TO BED. PATIENT AGITATED AFTER GOING TO BED AND WOULD YELL OUT FREQUENTLY. PATIENT WITH YELLOW SOCKS ON AND BED ALARM ON AND FUNCTIONING FOR SAFETY. STANDBY ASSISTANCE WHEN TX OR AMBULATING. DENIES DEPRESSION AND ANXIETY EVEN THOUGH ACTIONS SHOW DIFFERENTLY. FREQUENT REDIRECTING REQUIRED. P- WILL CONTINUE TO PROVIDE 1:1 INTERVENTION ALLOWING PT. TO EXPRESS THOUGHTS AND FEELINGS. Addendum: 03/01/20 at 0111 by Olamide Tan RN - OB RN RESPONSE - HAS NOT REMAINED ABLE TO GO MORE THAN 15 MINUTES WITHOUT TRYING TO GET UP AND GO TO THE [facility] FROM [phone].
[2020-03-01] MEDS: ZYPREXA IM PRN (02:29)
--- NOTE | 2020-03-01 02:32 | NUR ---
BEHAVIORAL PATIENT COMBATIVE, AGGRESSIVE, SCREAMING, YELLING, CUSSING, SWINGING, ATTEMPTING TO HIT THREATENING NURSES. PATIENT STATES THIS IS MY HOUSE AND YOU HAVE TO GET OUT", "CALL THE POLICE", "GET MY ROBE OUT OF THE CLOSE", PATIENT REFUSING TO WEAR CLOTHES, BRIEF, OUT OF BED EVERY 2-3 MINUTES AND TO BSC EVERY 15 MIN. WHILE PATIENT SWINGING AND HITTING STAFF, CAUSED APPROXIMATELY 1 INCH SKIN TEAR TL RIGHT LOWER WRIST FROM SINGING AROUND AND PUTTING GOWN ON BACKWARDS. HAS ONLY POSSIBLE SLEPT 1.75 HOURS UNTIL THIS TIME. PATIENT MEDICATED WITH PRN ZYPREXA 5MG IM, PATIENT LAID THERE AND DID NOT RESIST THE MEDICATION.
--- NOTE | 2020-03-01 02:42 | NUR ---
REPORT REPORT GIVEN TO ABHI VEGA RN - TRANSFER OF PATIENT CARE AT THIS TIME.
[2020-03-01 07:29] LABS: CALCIUM 9.1 mg/dL (8.4-10.5); CARBON DIOXIDE 28.1 mmol/L (20.0-32)
[2020-03-01] MEDS: HUMULIN R SQ SCH ×4 (07:30→20:21)
[2020-03-01 08:48] VITALS: BP 135/67
[2020-03-01] MEDS: AMARYL PO SCH (09:00)
--- NOTE | 2020-03-01 09:08 | PRM.PN ---
Mood: "i'm okay" Sleep: 2.25hrs, "I'm sleepy" Appetite: good Suidical thoughts: denies Homicidal thoughts: denies Recent stressors: trouble sleeping Family support: talks with family/friends Aggressive Behavior: denies Ability to Perform ADL'sc: with assistance Psychotic sympstoms: denies Manic Symptoms: denies Living situation: [facility] Illicit Drug usec: denies Alcoholo use: denies Tobacco use: denies Anxity Symptoms: denies Anger/Irritablility: denies Appearance: Well groomed/hygience, Casual attire, Appears age stated Attitude & Behaviour: Cooperative/Pleasant, Poor eye contact Orientation: Disoriented to place, Disoriented to time, Disoriented to situation Attention/Concentration: Poor attention, Poor concentration Speech: Reg rate/vol/rhyth/prosod Judgement/Insight: Poor judgement, Poor insight Thought Process: Tangential Language: Serbian Thought content/Abnormal/Psych: None/normal Fund of Knowledge: Other (some deficits) Associations: WNL/Normal Associations Memory (recent and remote): Recent memory repaired, Remote memory repaired Assessment/Plan Assessment/Plan Assessment/Plan Nursing: Pt only slept 2.5hrs, got a PRN around 2am, which helped calm her down Patient: Pt notes poor sleep, feeling tired. She is oriented to person and place. Vital Signs Date Time Temp Pulse Resp B/P (MAP) Pulse Ox O2 Delivery O2 Flow Rate FiO2 02/29/20 09:48 85 173/70 02/29/20 09:42 98.1 18 98 Room Air Allergies Coded Allergies Type Severity Reaction Last Updated Verified azithromycin Allergy Unknown 02/21/20 Yes cyanocobalamin (vitamin B12) Allergy Unknown 02/21/20 Yes ferrous sulfate Allergy Unknown 02/21/20 Yes meperidine Allergy Unknown 02/21/20 Yes Current Medications Medications (Trade) Dose Ordered Sig/Colton PRN Reason Start Time Stop Time Status Last Admin Divalproex Sodium (Depakote Sprinkle) 125 mg 1300,2100 02/28/20 13:00 03/23/20 21:00 02/29/20 12:31 Psychotropics: depakote sprinkles 125mg bid, afternoon and hs olanzapine 5mg prn aricept 10mg po daily at hs seroquel 25mg PO QHS sleep/mood remeron 7.5mg po daily at hs - stopped has not been consistently helpful with sleep CONSENT: Consent was obtained by patient for telemedicine visit. Consent was obtained for the presence of staff member throughout encounter. Privacy was maintained throughout encounter Summary: 89 yo F, hx of dementia, admitted to [facility] for worsening mood/aggressive behaviors. Patient has had some wandering behaviors, and perseverations about going home/calling son; but she has not had any aggressive behaviors and has been redirectable by staff. Plan 1. CONTINUE BEHAVIORAL HEALTH MANAGEMENT. 2. CONTINUE CURRENT MEDICATIONS PRESCRIBED. 3. ALL PATIENT QUESTIONS ANSWERED RELATED TO MEDICATIONS, PLAN OF CARE, AND EXPECTED OUTCOMES. 4. SAFETY PLAN DISCUSSED 5. SCHEDULE VALPROIC ACID, CBC, CMP, RULE OUT CHANGED SECONDARY TO MEDICATIONS WENDI TARANGO MD Mar 01, 2020 09:08
[2020-03-01] MEDS ORDERED: AMARYL ONE (09:21)
[2020-03-01] MEDS: IMDUR PO SCH (09:24)
[2020-03-01] MEDS: LOPRESSER PO SCH ×2 (09:24→20:04)
[2020-03-01] MEDS: DITROPAN PO SCH ×4 (09:24→20:02)
[2020-03-01] MEDS: ZESTRIL PO SCH (09:24)
[2020-03-01] MEDS: DEPAKOTE SPRINKLE PO SCH ×3 (13:00→20:03)
--- NOTE | 2020-03-01 15:51 | NUR ---
Behavior Patient sitting up in the Day room, awake but drowsy in her chair. Patient refused her 1300 Depakote and her 1500 Oxybutin.
[2020-03-01 16:30] LABS: APPEARANCE,URINE HAZY (CLEAR); BILIRUBIN,URINE NEGATIVE (NEGATIVE); UA COLOR YELLOW (YELLOW)
[2020-03-01 16:31] LABS: UROBILINOGEN,URINE NEGATIVE (NEGATIVE)
--- NOTE | 2020-03-01 16:59 | NUR ---
PIRP: P: ALTERED THOUGHT PROCESS, FREQUENCY OF URINATION I: PROVIDE MEDICATIONS ORDERED BY PHYSICIAN. ENCOURAGE ATTENDANCE AND PARTICIPATION OF ALL GROUPS. ALLOW PATIENT TO VOICE FEELINGS AND CONCERNS. PROVIDE SAFE ENVIRONMENT. MONITOR PATIENT FOR DEPRESSION, ANXIETY, SUICIDAL IDEATION, AND PSYCHOTIC SYMPTOMS. R: PATIENT TOOK MORNING MEDICATIONS BUT REFUSED 1300 MEDS. PATIENT HASN'T SLEPT WELL AT NIGHT AND SPENT THE MAJORITY OF THE DAY NAPPING EXCEPT FOR MEALS. DR. STOVER ON UNIT THIS MORNING AND GAVE ORDER FOR UA AND TO START LISINOPRIL 5 MG DAILY, METFORMIN, LOSARTAN, HYDROCHLOROTHIAZIDE REMAIN ON HOLD. PATIENT RECEIVED PRN ZYPREXA LAST NIGHT AT 0200 AND HAS BEEN DRWSY ALL DAY. PATIENT HAS BEEN COOPERATIVE AND HAS NOT HAD ANY BEHAVIOR ISSUES. SHE DENIES DEPRESSION, ANXIETY AND SUICIDAL IDEATION. P:CONTINUE CURRENT PLAN OF CARE.
--- NOTE | 2020-03-01 17:51 | NUR ---
NOTIFIED DR. STOVER: NOTIFIED DR. STOVER OF UA RESULTS. ORDER RECEIVED TO CULTURE URINE AND START CIPRO 2.5 MG PO BID X3 DAYS.
[2020-03-01 19:44] VITALS: BP 103/51
[2020-03-01] MEDS: SEROQUEL PO SCH (20:02)
[2020-03-01] MEDS: CIPRO PO SCH (20:03)
[2020-03-01] MEDS: LIPITOR PO SCH (20:04)
--- NOTE | 2020-03-02 05:30 | NUR ---
P.I.R.P. P. ALTERATION IN THOUGHT PROCESS/FREQUENT URINATION. I. PROVIDE EVERY 15 MINUTE CHECKS, PROVIDE SAFE ENVIRONMENT, PROVIDE TASK ORIENTED GROUP ACTIVITY. PROVIDE MEDICATIONS ORDERED PER MD, PROVIDE 1:1 INTERACTION TO ALLOW PATIENT TO EXPRESS FEELINGS. MONITOR FOR COGNITIVE CHANGES. BED ALARM FOR SAFETY. R. PATIENT ATTENDED GROUP , LEFT X 1 BUT RETURNED AND COMPLETED ACTIVITY. HAS BEEN PLEASANT AND COOPERATIVE. DECREASED TIMES OF GETTING UP TO URINATE. DENIED ANXIETY OR DEPRESSION. DID NOT APPEAR RESTLESS/ANXIOUS OR DEPRESSED. HAS SLEPT 3.75 HOURS THUS FAR THIS SHIFT. THIS IS IMPROVEMENT FROM PREVIOUS NIGHT. P. CONTINUE CURRENT PLAN OF CARE.
[2020-03-02] MEDS: HUMULIN R SQ SCH ×4 (07:30→20:02)
[2020-03-02 07:42] VITALS: BP 131/61
[2020-03-02] MEDS: AMARYL PO SCH (08:25)
[2020-03-02] MEDS: IMDUR PO SCH (08:25)
[2020-03-02] MEDS: CIPRO PO SCH ×2 (08:25→20:11)
[2020-03-02] MEDS: DITROPAN PO SCH ×3 (08:25→20:11)
[2020-03-02] MEDS: ZESTRIL PO SCH (08:26)
[2020-03-02] MEDS: LOPRESSER PO SCH ×2 (08:26→20:11)
--- NOTE | 2020-03-02 14:01 | NUR ---
DR. JOLANTA STOVER AT BEDSIDE TO SEE PT, NO NEW ORDERS RECEIVED.
[2020-03-02] MEDS: DEPAKOTE SPRINKLE PO SCH ×2 (14:26→20:10)
--- NOTE | 2020-03-02 16:10 | PRM.PN ---
Mood: good, very good, Sleep: 4.25 hours, I slept real good Appetite: oh ya I am, yes to trying to drink water Suidical thoughts: no "God no" Homicidal thoughts: denies Recent stressors: denies Family support: not talked to them, I have a good family Aggressive Behavior: not aggressive Ability to Perform ADL'sc: assist of 1 Psychotic sympstoms: denies, Manic Symptoms: denies Living situation: lives in snf Illicit Drug usec: na Alcoholo use: na Tobacco use: na Family,PT,Surgical,&Current HX: (1) Dementia (2) Delusional disorder (3) Combative behavior Anxity Symptoms: no Anger/Irritablility: denies, jokes about this and denies Muscle Strength & Tone: Rigidity Gait & Station: Ataxic Appearance: Well groomed/hygience Attitude & Behaviour: Cooperative/Pleasant Mood & Affect: Full Orientation: Disoriented to place, Disoriented to time Attention/Concentration: Fair attention, Fair concentration Speech: Reg rate/vol/rhyth/prosod Judgement/Insight: Poor judgement, Poor insight Thought Process: Circumferential Language: German Thought content/Abnormal/Psych: Delusions Fund of Knowledge: WNL Associations: Other Constitutional: None Neurological: None Psychiatric: Psychosis [place] I: dementia, delusions disorder [place] IV: lives in snf Assessment/Plan Assessment/Plan Plan Nursing: she does take quite a few naps during the day 2 naps today about 45 minutes may keep her sleeping less at night not having aggression but when another patient is not hearing her she can scream - she is really just trying to be heard, not angry redirectable covid test not completed today- needed for admission to snf Patient: Vital Signs Date Time Temp Pulse Resp B/P (MAP) Pulse Ox O2 Delivery O2 Flow Rate FiO2 03/02/20 08:26 131/61 03/02/20 08:26 68 03/02/20 07:42 98.6 16 98 03/01/20 08:48 Room Air Allergies Coded Allergies Type Severity Reaction Last Updated Verified azithromycin Allergy Unknown 02/21/20 Yes cyanocobalamin (vitamin B12) Allergy Unknown 02/21/20 Yes ferrous sulfate Allergy Unknown 02/21/20 Yes meperidine Allergy Unknown 02/21/20 Yes Current Medications Medications (Trade) Dose Ordered Sig/Colton PRN Reason Start Time Stop Time Status Last Admin Ciprofloxacin (Cipro) 250 mg BID 03/01/20 21:00 03/04/20 10:00 03/02/20 08:25 Glimepiride (Amaryl) 2 mg DAILY 03/01/20 09:29 03/23/20 08:59 03/02/20 08:25 Lisinopril (Zestril) 5 mg DAILY 03/01/20 09:00 03/31/20 08:59 03/02/20 08:26 Quetiapine Fumarate (Seroquel) 25 mg HS 02/29/20 21:00 03/23/20 21:00 03/01/20 20:02 Psychotropics: depakote sprinkles 125mg bid, afternoon and hs olanzapine 5mg prn aricept 10mg po daily at hs (stopped due to elevated creat- bun) seroquel 25mg PO QHS sleep/mood remeron 7.5mg po daily at hs - stopped has not been consistently helpful with sleep Summary: Being treated for uti - she does get up frequently to void at night, hoping sleep improves at hs gets off track, talking got you to get my insurance CONSENT: Consent was obtained by patient for telemedicine visit. Consent was obtained for the presence of staff member throughout encounter. Privacy was maintained throughout encounter PLAN: 1. CONTINUE BEHAVIORAL HEALTH MANAGEMENT. 2. CONTINUE CURRENT MEDICATIONS PRESCRIBED. STAFF AGREEABLE WITH PLAN 3. ALL PATIENT QUESTIONS ANSWERED RELATED TO MEDICATIONS, PLAN OF CARE, AND EXPECTED OUTCOMES. 4. SAFETY PLAN DISCUSSED. 5. BUN CREAT DRAW Thursday JORGE CHARLES NP Mar 02, 2020 16:10
--- NOTE | 2020-03-02 16:52 | PRM.PN ---
Subjective Subjective Date: Mar 02, 2020 Time: 13:50 Subjective Follow-up visit on patient with diabetes and hypertension because of blood sugars were running too high. Some medication adjustments were made and it is starting to work well with blood pressure 130/80 today. She has no complaints plaints except for her increasing urination.[id number] She reports no fever and no flank pain VTE VTE Risk Total Score: 3 VTE Risk Score VTE Risk: Score 0-1 = Low Risk (Aggressive mobilization; early ambulation; no VTE prophylaxis required) Score 2: Moderate Risk (Intermittent/Pneumatic Compression Device OR Lovenox/Heparin/Coumadin) Score 3-4: High Risk (Intermittent/Pneumatic Compression Device AND Lovenox/Heparin/Coumadin) Score > or =5: Highest Risk (Intermittent/Pneumatic Compression Device AND Lovenox/Heparin/Coumadin) Review of Systems Constitutional: Weakness Genitourinary: Dysuria, Frequency Neurological: Weakness Allergies: Coded Allergies: azithromycin (Verified Allergy, Unknown, 02/21/20) cyanocobalamin (vitamin B12) (Verified Allergy, Unknown, 02/21/20) ferrous sulfate (Verified Allergy, Unknown, 02/21/20) meperidine (Verified Allergy, Unknown, 02/21/20) Scheduled Amlodipine Besylate (Amlodipine Besylate), 1 TAB PO DAILY, (Reported) Donepezil Hcl (Donepezil Hcl), 5 MG PO HS, (Reported) Glimepiride (Amaryl), 2 TAB PO DAILY, (Reported) Glipizide (Glipizide), 1 TAB PO BIDAC, (Reported) Isosorbide Mononitrate (Isosorbide Mononitrate Er), 1 TAB PO DAILY, (Reported) Lisinopril (Lisinopril), 1 TAB PO DAILY, (Reported) Losartan/Hydrochlorothiazide (Losartan-Hctz 100-12.5 Mg Tab), 1 TAB PO DAILY, (Reported) Metformin Hcl (Metformin Hcl), 1 TAB PO BID, (Reported) Metoprolol Succinate (Metoprolol Succinate), 1 TAB PO BID, (Reported) Simvastatin (Simvastatin), 1 TAB PO HS, (Reported) Tolterodine Tartrate (Detrol La), 2 CAP PO DAILY, (Reported) Objective Vitals and I/O Vital Sign - Last 24 Hours 7/903/01/20 03/02/20 03/02/20 19:44 20:04 07:42 08:25 Temp 98.2 98.6 Pulse 79 79 68 Resp 20 16 B/P (MAP) 103/51 (68) 103/51 131/61 (84) 131/61 Pulse Ox 97 98 03/02/20 03/02/20 08:26 08:26 Pulse 68 B/P (MAP) 131/61 131/61 Intake and Output 03/02/20 06:59 Intake Total 1272 ml Balance 1272 ml General: Alert, Cooperative, No acute distress HEENT: Atraumatic, Mucous membr. moist/pink Neck: Supple, +2 carotid pulse wo bruit Lungs: Clear to auscultation, Normal air movement Heart: Regular rate, Normal S1, No murmurs Abdomen: Normal bowel sounds, No tenderness Extremities: No clubbing, No cyanosis, Other (1+ edema present) Psych/Mental Status: Other (see MSE above) All Results(Lab/Rad) Laboratory Tests Test 03/01/20 17:19 03/01/20 19:25 03/02/20 07:44 03/02/20 11:50 Bedside Glucose 92 152 111 239 Current Medications Medications (Trade) Dose Ordered Sig/Colton Route PRN Reason Start Time Stop Time Status Last Admin Dose Admin Lorazepam (Ativan) 1 mg STAT STAT PO 02/21/20 12:10 02/21/20 12:11 DC Haloperidol Lactate (Haldol) 5 mg STAT STAT IM 02/21/20 12:42 02/21/20 12:43 DC 02/21/20 13:03 Haloperidol Lactate (Haldol) 5 mg STK-MED ONCE .ROUTE 02/21/20 12:58 02/21/20 13:01 DC Ondansetron HCl (Zofran) 4 mg STK-MED ONCE .ROUTE 02/21/20 13:20 02/21/20 13:23 DC Fentanyl Citrate (Sublimaze) 50 mcg STK-MED ONCE .ROUTE 02/21/20 13:21 02/21/20 13:23 DC Amlodipine Besylate (Norvasc) 5 mg DAILY PO 02/22/20 09:00 03/23/20 08:59 Hold 02/22/20 09:29 Glimepiride (Amaryl) 2 mg DAILY PO 02/22/20 09:00 03/01/20 09:29 DC 03/01/20 09:00 Glipizide (Glucotrol) 5 mg BIDAC PO 02/22/20 07:30 02/22/20 21:20 DC 02/22/20 17:20 Isosorbide Mononitrate (Imdur) 30 mg DAILY PO 02/22/20 09:00 03/23/20 08:59 03/02/20 08:25 Lisinopril (Zestril) 10 mg DAILY PO 02/22/20 09:00 03/23/20 08:59 Hold 02/22/20 09:28 Metformin HCl (Glucophage) 500 mg BID PO 02/21/20 21:00 02/22/20 21:20 DC 02/22/20 09:28 Metoprolol Succinate (Toprol Xl) 25 mg BID PO 02/21/20 21:00 02/23/20 07:34 DC 02/22/20 09:29 Losartan Potassium (Cozaar) 100 mg DAILY PO 02/22/20 09:00 03/23/20 08:59 Hold 02/22/20 09:27 Atorvastatin Calcium (Lipitor) 20 mg HS PO 02/22/20 21:00 03/23/20 20:59 03/01/20 20:04 Oxybutynin Chloride (Ditropan) 5 mg TID PO 02/22/20 09:00 03/23/20 08:59 03/02/20 08:25 Donepezil HCl (Aricept Odt) 5 mg HS PO 02/21/20 21:00 02/25/20 15:06 DC 02/24/20 20:16 Olanzapine (Zyprexa Zydis) 5 mg Q6 PRN SL AGITATION/PSYCHOSIS 02/21/20 18:00 03/22/20 17:59 02/29/20 19:51 Olanzapine (Zyprexa) 5 mg Q6 PRN IM AGITATION/PSYCHOSIS 02/21/20 18:00 03/22/20 17:59 03/01/20 02:29 Hydrochlorothiazide (Hydrochlorothiazide) 12.5 mg DAILY PO 02/22/20 09:00 03/23/20 08:59 Hold 02/22/20 09:27 Glimepiride (Amaryl) 2 mg STK-MED ONCE .ROUTE 02/22/20 08:40 02/22/20 08:43 DC Losartan Potassium (Cozaar) 25 mg STK-MED ONCE .ROUTE 02/22/20 08:47 02/22/20 08:49 DC Metformin HCl (Glucophage) 1,000 mg BID PO 02/23/20 09:00 03/24/20 08:59 Hold 02/23/20 08:08 Insulin Human Regular (Humulin R) Give 30 minutes before meal ACHS SQ 02/23/20 07:30 03/24/20 07:29 03/02/20 12:14 Dextrose (Dextrose 50%-Water Syringe) 25 ml STAT PRN IV HYPOGLYCEMIA 02/22/20 21:30 03/23/20 21:29 Metformin HCl (Glucophage) 1,000 mg STAT STAT PO 02/22/20 21:21 02/23/20 08:08 DC 02/22/20 22:13 Insulin Human Regular (Humulin R) Give 30 minutes before meal OT ONCE SQ 02/22/20 21:30 02/22/20 21:46 DC 02/22/20 22:04 Metoprolol Succinate (Toprol Xl) 12.5 mg BID PO 02/23/20 09:00 02/23/20 09:22 DC 02/23/20 08:07 Glimepiride (Amaryl) 2 mg STK-MED ONCE .ROUTE 02/23/20 08:49 02/23/20 08:51 DC Metoprolol Tartrate (Lopresser) 12.5 mg BID PO 02/23/20 09:22 03/24/20 08:59 03/02/20 08:26 Glimepiride (Amaryl) 2 mg STK-MED ONCE .ROUTE 02/24/20 08:40 02/24/20 08:42 DC Mirtazapine (Remeron) 7.5 mg HS PO 02/24/20 21:00 02/29/20 14:54 DC 02/28/20 20:32 Glimepiride (Amaryl) 2 mg STK-MED ONCE .ROUTE 02/25/20 08:42 02/25/20 08:44 DC Donepezil HCl (Aricept Odt) 10 mg HS PO 02/25/20 21:00 02/29/20 16:58 DC 02/28/20 20:32 Glimepiride (Amaryl) 2 mg STK-MED ONCE .ROUTE 02/26/20 08:30 02/26/20 08:32 DC Divalproex Sodium (Depakote Sprinkle) 125 mg DAILY PO 02/26/20 13:00 02/27/20 05:36 DC 02/26/20 13:11 Albuterol/ Ipratropium (Duo 0.5-3(2.5) Mg/3 ml) 3 ml Q6HR PRN IH SHORTNESS OF BREATH 02/26/20 14:30 03/06/20 14:30 UNV Divalproex Sodium (Depakote Sprinkle) 125 mg 1300 PO 02/27/20 13:00 02/28/20 12:18 DC 02/27/20 13:17 Glimepiride (Amaryl) 2 mg STK-MED ONCE .ROUTE 02/27/20 08:32 02/27/20 08:34 DC Glimepiride (Amaryl) 2 mg STK-MED ONCE .ROUTE 02/28/20 08:42 02/28/20 08:44 DC Divalproex Sodium (Depakote Sprinkle) 125 mg 1300,2100 PO 02/28/20 13:00 03/23/20 21:00 03/02/20 14:26 Glimepiride (Amaryl) 2 mg STK-MED ONCE .ROUTE 02/29/20 09:48 02/29/20 09:51 DC Quetiapine Fumarate (Seroquel) 25 mg HS PO 02/29/20 21:00 03/23/20 21:00 03/01/20 20:02 Quetiapine Fumarate (Seroquel) 25 mg STK-MED ONCE .ROUTE 02/29/20 19:57 02/29/20 20:00 DC Lisinopril (Zestril) 5 mg DAILY PO 03/01/20 09:00 03/31/20 08:59 03/02/20 08:26 Glimepiride (Amaryl) 2 mg STK-MED ONCE .ROUTE 03/01/20 09:21 03/01/20 09:24 DC Glimepiride (Amaryl) 2 mg DAILY PO 03/01/20 09:29 03/23/20 08:59 03/02/20 08:25 Ciprofloxacin (Cipro) 250 mg BID PO 03/01/20 21:00 03/04/20 10:00 03/02/20 08:25 Course Duration or Total Time Spent w: 15 min Vitals & review Data Vital Sign - Last 24 Hours 03/01/20 03/01/20 03/02/20 03/02/20 19:44 20:04 07:42 08:25 Temp 98.2 98.6 Pulse 79 79 68 Resp 20 16 B/P (MAP) 103/51 (68) 103/51 131/61 (84) 131/61 Pulse Ox 97 98 03/02/20 03/02/20 08:26 08:26 Pulse 68 B/P (MAP) 131/61 131/61 Intake and Output 03/02/20 06:59 Intake Total 1272 ml Balance 1272 ml Laboratory Tests Test 02/29/20 17:18 02/29/20 19:34 03/01/20 06:56 03/01/20 11:55 Bedside Glucose 89 125 367 Sodium Level 141 mmol/L Potassium Level 4.4 mmol/L Chloride Level 105.0 mmol/L Carbon Dioxide Level 28.1 mmol/L Glucose Level 117 mg/dL Blood Urea Nitrogen 25 mg/dL Creatinine 1.58 mg/dL Calcium Level 9.1 mg/dL Anion Gap 12.3 Estimated GFR () 37.4 Est GFR (CKD-EPI)(Non-Afr Panamanian) 30.9 BUN/Creatinine Ratio 15.0 Test 03/01/20 16:05 03/01/20 17:19 03/01/20 19:25 03/02/20 07:44 Urine Collection Type VOID Urine Color YELLOW Urine Appearance HAZY Urine Bilirubin NEGATIVE MG/DL Urine Ketones NEGATIVE Urine Specific Talent 1.005 Urine pH 6.0 Urine Protein NEGATIVE Urine Urobilinogen NEGATIVE Urine Nitrate NEGATIVE Urine Leukocyte Esterase 1+ Urine Blood NEGATIVE Urine RBC NONE SEEN RBC/HPF Urine WBC TNTC WBC/HPF Urine Squamous Epithelial Cells FEW #/HPF Urine Bacteria MODERATE Urine Glucose NORMAL Bedside Glucose 92 152 111 Test 03/02/20 11:50 Bedside Glucose 239 Current Medications Medications (Trade) Dose Ordered Sig/Colton PRN Reason Start Time Stop Time Status Last Admin Ciprofloxacin (Cipro) 250 mg BID 03/01/20 21:00 03/04/20 10:00 03/02/20 08:25 Glimepiride (Amaryl) 2 mg DAILY 03/01/20 09:29 03/23/20 08:59 03/02/20 08:25 Lisinopril (Zestril) 5 mg DAILY 03/01/20 09:00 03/31/20 08:59 03/02/20 08:26 Quetiapine Fumarate (Seroquel) 25 mg HS 02/29/20 21:00 03/23/20 21:00 03/01/20 20:02 O2 Sat by Pulse Oximetry: 98 Assessment/Plan Assessment/Plan Assessment/Plan Nursing: she does take quite a few naps during the day 2 naps today about 45 minutes may keep her sleeping less at night not having aggression but when another patient is not hearing her she can scream - she is really just trying to be heard, not angry redirectable covid test not completed today- needed for admission to snf Patient: Vital Signs Date Time Temp Pulse Resp B/P (MAP) Pulse Ox O2 Delivery O2 Flow Rate FiO2 03/02/20 08:26 131/61 03/02/20 08:26 68 03/02/20 07:42 98.6 16 98 03/01/20 08:48 Room Air Allergies Coded Allergies Type Severity Reaction Last Updated Verified azithromycin Allergy Unknown 02/21/20 Yes cyanocobalamin (vitamin B12) Allergy Unknown 02/21/20 Yes ferrous sulfate Allergy Unknown 02/21/20 Yes meperidine Allergy Unknown 02/21/20 Yes Current Medications Medications (Trade) Dose Ordered Sig/Colton PRN Reason Start Time Stop Time Status Last Admin Ciprofloxacin (Cipro) 250 mg BID 03/01/20 21:00 03/04/20 10:00 03/02/20 08:25 Glimepiride (Amaryl) 2 mg DAILY 03/01/20 09:29 03/23/20 08:59 03/02/20 08:25 Lisinopril (Zestril) 5 mg DAILY 03/01/20 09:00 03/31/20 08:59 03/02/20 08:26 Quetiapine Fumarate (Seroquel) 25 mg HS 02/29/20 21:00 03/23/20 21:00 03/01/20 20:02 Psychotropics: depakote sprinkles 125mg bid, afternoon and hs olanzapine 5mg prn aricept 10mg po daily at hs (stopped due to elevated creat- bun) seroquel 25mg PO QHS sleep/mood remeron 7.5mg po daily at hs - stopped has not been consistently helpful with sleep Summary: Being treated for uti gets off track, talking got you to get my insurance CONSENT: Consent was obtained by patient for telemedicine visit. Consent was obtained for the presence of staff member throughout encounter. Privacy was maintained throughout encounter PLAN: 1. CONTINUE BEHAVIORAL HEALTH MANAGEMENT. 2. CONTINUE CURRENT MEDICATIONS PRESCRIBED. STAFF AGREEABLE WITH PLAN 3. ALL PATIENT QUESTIONS ANSWERED RELATED TO MEDICATIONS, PLAN OF CARE, AND EXPECTED OUTCOMES. 4. SAFETY PLAN DISCUSSED. 5. BUN CREAT DRAW THURSDAY MORNING Problems: (1) Hypertension, essential Assessment & Plan: Control has improved with medication changes. No further changes at this time but continue to monitor ICD Code: I10 - Essential (primary) hypertension SNOMED: 23591167 (2) Type 2 diabetes mellitus Assessment & Plan: Control have improved on current medications. Currently increased urination most likely due to urinary tract infection ICD Code: E11.9 - Type 2 diabetes mellitus without complications SNOMED: 43931700 (3) Urinary tract infection Assessment & Plan: Based on urinalysis looks like a urinary tract infection so we will get her started on empiric Macrobid and obtain culture results in 2 or 3 days. Readjust medication if needed. ICD Code: N39.0 - Urinary tract infection, site not specified SNOMED: 86488966 Plan Nursing: she does take quite a few naps during the day 2 naps today about 45 minutes may keep her sleeping less at night not having aggression but when another patient is not hearing her she can scream - she is really just trying to be heard, not angry redirectable covid test not completed today- needed for admission to snf Patient: Vital Signs Date Time Temp Pulse Resp B/P (MAP) Pulse Ox O2 Delivery O2 Flow Rate FiO2 03/02/20 08:26 131/61 03/02/20 08:26 68 03/02/20 07:42 98.6 16 98 03/01/20 08:48 Room Air Allergies Coded Allergies Type Severity Reaction Last Updated Verified azithromycin Allergy Unknown 02/21/20 Yes cyanocobalamin (vitamin B12) Allergy Unknown 02/21/20 Yes ferrous sulfate Allergy Unknown 02/21/20 Yes meperidine Allergy Unknown 02/21/20 Yes Current Medications Medications (Trade) Dose Ordered Sig/Colton PRN Reason Start Time Stop Time Status Last Admin Ciprofloxacin (Cipro) 250 mg BID 03/01/20 21:00 03/04/20 10:00 03/02/20 08:25 Glimepiride (Amaryl) 2 mg DAILY 03/01/20 09:29 03/23/20 08:59 03/02/20 08:25 Lisinopril (Zestril) 5 mg DAILY 03/01/20 09:00 03/31/20 08:59 03/02/20 08:26 Quetiapine Fumarate (Seroquel) 25 mg HS 02/29/20 21:00 03/23/20 21:00 03/01/20 20:02 Psychotropics: depakote sprinkles 125mg bid, afternoon and hs olanzapine 5mg prn aricept 10mg po daily at hs (stopped due to elevated creat- bun) seroquel 25mg PO QHS sleep/mood remeron 7.5mg po daily at hs - stopped has not been consistently helpful with sleep Summary: Being treated for uti gets off track, talking got you to get my insurance CONSENT: Consent was obtained by patient for telemedicine visit. Consent was obtained for the presence of staff member throughout encounter. Privacy was maintained throughout encounter PLAN: 1. CONTINUE BEHAVIORAL HEALTH MANAGEMENT. 2. CONTINUE CURRENT MEDICATIONS PRESCRIBED. STAFF AGREEABLE WITH PLAN 3. ALL PATIENT QUESTIONS ANSWERED RELATED TO MEDICATIONS, PLAN OF CARE, AND EXPECTED OUTCOMES. 4. SAFETY PLAN DISCUSSED. 5. BUN CREAT DRAW Thursday JESSICA STOVER MD Mar 02, 2020 16:52
--- NOTE | 2020-03-02 17:13 | NUR ---
PIRP P: ALTERATION IN MOOD I: Q15 MIN MONITORING, ASSESS FOR DEPRESSION, PROVIDE SAFE AND SUPPORTIVE ENVIRONMENT, REINFORCE RELAXATION TECHNIQUES, PROVIDE TASK-ORIENTED ACTIVITIES, RE-ORIENT TO SURROUNDINGS NEEDED, ALTERNATE REST/ACTIVITY, GIVE CLEAR AND SIMPLE INSTRUCTIONS, REINFORCE FALL PREVENTION TECHNIQUES, REDIRECT WITH VERBALIZATION, PROVIDE 1:1 TO ENCOURAGE EXPRESSION OF FEELINGS, GIVE MEDICATIONS ORDERED R: PT HAS PLEASANT, CHEERFUL AFFECT THROUGHOUT SHIFT. HAS NOT EXHIBITED THREATENING OR COMBATIVE BEHAVIORS. DENIES FEELINGS OF DEPRESSION, ANXIETY, SI/HI. NO HALLUCINATIONS NOTED, PT DID MAKE DELUSIONAL STATEMENTS IN LATE AFTERNOON R/T "PICKING UP THE PIGS ON SATURDAYS." PT HAS BEEN ABLE TO BE REDIRECTED WITH VERBALIZATION, INITIATES INTERACTION WITH STAFF AND PEERS. TAKES MEDICATIONS ORDERED, IS COOPERATIVE WITH ADLS. P: PENDING COVID-19 TEST AND RESULTS FOR RETURN TO ASSISTED LIVING FACILITY.
[2020-03-02 19:54] VITALS: BP 140/52
[2020-03-02] MEDS: SEROQUEL PO SCH (20:10)
[2020-03-02] MEDS: LIPITOR PO SCH (20:10)
--- NOTE | 2020-03-02 20:18 | NUR ---
SWAB COVID SWAB COLLECTED
[2020-03-03] MEDS: ZYPREXA ZYDIS SL PRN (04:04)
--- NOTE | 2020-03-03 04:09 | NUR ---
PRN ZYPREXA FOR PSYCHOSIS/AGITATION/RESTLESSNESS AT 0404 APPROXIMATELY 0200 PATIENT BEGAN WITH RESTLESSNESS, UNDRESSING , AGITATION, CURSING AND ACTING OUT AND YELLING AT STAFF, WAS ABLE TO REDIRECT AND BEHAVIORS WOULD CALM FOR 5 TO 10 MINUTE INTERVALS, THEN PATIENT BEGAN DEMANDING STAFF GO TO [address] IN THE BLUE CHAIR AND GET A LOAF OF BREAD AND OLEO AND JELLY, ASKED PATIENT IF SHE WAS HUNGRY, PATIENT REPLIED NO SHE WANTED IT FOR THE KIDS TO EAT. PATIENT BEGAN FLUSHING COMMODE AND ATTEMPTING TO PLACE BRUSH IN COMMODE AND ATTEMPTED PUTTING HER HAND IN COMMODE, NURSE WAS ABLE TO PREVENT THIS FROM HAPPENING BUT PATIENT WOULD BECOME AGITATED AND YELLING AT NURSE. UNABLE TO REDIRECT, EDUCATED PATIENT THAT WAS THE COMMODE, SHE VOICED "I KNOW WHAT IT IS". PATIENT HALLUCINATING ,EDUCATED PATIENT SHE HAD A MED PRESCRIBED FOR RESTLESSNESS AND HER BEHAVIORS, SHE DECLINED AT FIRST, THEN EDUCATED ZYPREXA WAS ALSO ORDERED IN A SHOT FORM, PATIENT STATED "GIVE ME ONE OF THOSE PILLS AND I WILL LAY DOWN." PRN ZYPREXA 5 MG ORAL ADMINISTERED FOR ABOVE SYMPTOMS AT 0404. PATIENT THEN BEGAN CALLING FOR HER MOTHER TO COME FIX HER HAIR.
--- NOTE | 2020-03-03 04:40 | NUR ---
P.I.R.P. P. ALTERATION IN THOUGHT PROCESS/PSYCHOSIS I. REDIRECT NEEDED, PROVIDE EVERY 15 MINUTE CHECKS, PROVIDE SAFE ENVIRONMENT, PROVIDE TASK ORIENTED GROUP ACTIVITY.ENCOURAGE PARTICIPATION. PROVIDE MEDICATIONS PRN AND SCHEDULED ORDERED PER MD, PROVIDE 1:1 INTERACTION TO ALLOW PATIENT TO EXPRESS FEELINGS. MONITOR FOR COGNITIVE CHANGES. BED ALARM FOR SAFETY. R. PATIENT TOOK MEDS ORDERED, PRN ZYPREXA ADMINISTERED AT 0404 FOR PSYCHOSIS, , YELLING, CURSING, AGITATED EASILY, TRYING TO PUT HAND AND BRUSH IN COMMODE IT WAS FLUSHING, PATIENT HAD NO HALLUCINATIONS OR DELUSIONS AT BEGINNING OF SHIFT THEN BEGAN WITH HALLUCINATIONS AND DELUSIONS. P. CONTINUE CURRENT PLAN OF CARE.
--- NOTE | 2020-03-03 04:47 | NUR ---
FOLLOW UP MEDICATION AFFECTIVE. PT IS SITTING IN WHEEL CHAIR WITH EYES CLOSED CHEST RISING AND FALLING.
[2020-03-03 06:12] VITALS: BP_SYST 120; BP_SYST 140; BP_DIAS 52; BP_DIAS 70
--- NOTE | 2020-03-03 06:41 | NUR ---
FALL PATIENT FOUND ON FLOOR IN HER ROOM IN FRONT OF WHEELCHAIR AT 0612 THAT SHE HAD BEEN RESTING IN EYES CLOSED AFTER TAKING ZYPREXA 5 MG PRN AT 0404, PATIENT HAD CHANGED POSITIONS OF THE WHEELCHAIR SINCE 0600 15 MINUTE CHECK. NO INJURIES, PATIENT WOULD NOT ALLOW NURSE TO ASSESS PUPILS WOULD CLAMP HER EYES CLOSED, ALERT, ABLE TO MOVE ALL EXTREMETIES, DENIES PAIN OR DISCOMFORT, DR TARANGO WAS NOTIFIED, DR STOVER WAS NOTIFIED, SUPERINTENDENT NOTIFIED. DISCUSSED WITH DR TARANGO PATIENT HAVING TO HAVE ZYPREXA 5 MG AT 0404 FOR PSYCHOSIS AND BEHAVIORS. PATIENT NOT SLEEPING GOOD AT NIGHT AND REQUIRES ZYPREXA AT TIMES DURING NIGHT, ORDER RECEIVED FOR ZYPREXA 5 MG SCHEDULED AT HS. Addendum: 03/03/20 at 0653 by LAURA AbelBHAlexei ANGEL UNKNOWN IF PATIENT HIT HEAD. NO INJURIES NOTED TO HEAD.
[2020-03-03] MEDS: HUMULIN R SQ SCH ×4 (07:44→20:08)
[2020-03-03 08:14] VITALS: BP_SYST 106; BP_SYST 136; BP_DIAS 50; BP_DIAS 76
[2020-03-03] MEDS: DITROPAN PO SCH ×3 (08:53→20:19)
[2020-03-03] MEDS: CIPRO PO SCH ×2 (08:54→20:20)
[2020-03-03] MEDS: IMDUR PO SCH (08:54)
[2020-03-03] MEDS: AMARYL PO SCH (08:54)
[2020-03-03] MEDS: LOPRESSER PO SCH ×2 (08:55→20:20)
[2020-03-03] MEDS: ZESTRIL PO SCH (08:55)
--- NOTE | 2020-03-03 11:22 | NUR ---
TELEMED PT WAS SEEN BY Esther CHARLES NP. RECEIVED ORDERS TO DISCONTINUE SEROQUEL AND INCREASE HS DOSE OF DEPAKOTE, SEE EMR.
--- NOTE | 2020-03-03 11:31 | PRM.PN ---
Mood: good, jokes with me Sleep: 3.25 hours "not so good" Appetite: Oh Lord I eat well, Suidical thoughts: denies Homicidal thoughts: denies Recent stressors: "I gotta go pee" Family support: will talk of daughter in law, she called family Aggressive Behavior: "I got a little aggravated, she wants to go home" Ability to Perform ADL'sc: assist of 1, Psychotic sympstoms: in the day, not hallucinating and mostly oriented Manic Symptoms: not exit seeking Living situation: discharge to snf Illicit Drug usec: na Alcoholo use: na Tobacco use: na Family,PT,Surgical,&Current HX: (1) Delusional disorder (2) Dementia (3) Combative behavior Anxity Symptoms: less urgent with needing the BR- Anger/Irritablility: denies Muscle Strength & Tone: Rigidity Gait & Station: Ataxic Appearance: Well groomed/hygience Attitude & Behaviour: Cooperative/Pleasant Mood & Affect: Full Orientation: Disoriented to time Attention/Concentration: Fair attention, Fair concentration Speech: Impaired (good speech then mumbles at end of sentence) Judgement/Insight: Fair judgement, Poor insight Thought Process: Circumferential Language: Divehi Thought content/Abnormal/Psych: Delusions (worse last evening, ) Fund of Knowledge: WNL Associations: Other Constitutional: None Neurological: None Psychiatric: Psychosis (does not stay oriented, worse last night ) [place] I: dementia, delusional disorder [place] IV: lives at snf Assessment/Plan Assessment/Plan Plan Nursing: she does take quite a few naps during the day 2 naps today about 45 minutes may keep her sleeping less at night not having aggression but when another patient is not hearing her she can scream - she is really just trying to be heard, not angry redirectable was not easy at night call to Dr. Freeman early this morning- he scheduled zyprexa at covid test done- needed for admission to snf Patient: Vital Signs Date Time Temp Pulse Resp B/P (MAP) Pulse Ox O2 Delivery O2 Flow Rate FiO2 03/02/20 08:26 131/61 03/02/20 08:26 68 03/02/20 07:42 98.6 16 98 03/01/20 08:48 Room Air Allergies Coded Allergies Type Severity Reaction Last Updated Verified azithromycin Allergy Unknown 02/21/20 Yes cyanocobalamin (vitamin B12) Allergy Unknown 02/21/20 Yes ferrous sulfate Allergy Unknown 02/21/20 Yes meperidine Allergy Unknown 02/21/20 Yes Current Medications Medications (Trade) Dose Ordered Sig/Colton PRN Reason Start Time Stop Time Status Last Admin Ciprofloxacin (Cipro) 250 mg BID 03/01/20 21:00 03/04/20 10:00 03/02/20 08:25 Glimepiride (Amaryl) 2 mg DAILY 03/01/20 09:29 03/23/20 08:59 03/02/20 08:25 Lisinopril (Zestril) 5 mg DAILY 03/01/20 09:00 03/31/20 08:59 03/02/20 08:26 Quetiapine Fumarate (Seroquel) 25 mg HS 02/29/20 21:00 03/23/20 21:00 03/01/20 20:02 Psychotropics: depakote sprinkles 125mg bid, afternoon and hs olanzapine 5mg prn and scheduled 5mg daily at hs aricept 10mg po daily at hs (stopped due to elevated creat- bun) seroquel 25mg PO QHS sleep/mood (did not consistently provide sleep at night) remeron 7.5mg po daily at hs - stopped has not been consistently helpful with sleep Summary: appear to forget what she was going to say and mumbles by the end of sentence, today and yesterday, although consistent poor sleep at night UTI sx improving, she has been less urgent about yelling to staff to help her CONSENT: Consent was obtained by patient for telemedicine visit. Consent was obtained for the presence of staff member throughout encounter. Privacy was maintained throughout encounter PLAN: 1. CONTINUE BEHAVIORAL HEALTH MANAGEMENT. 2. CONTINUE CURRENT MEDICATIONS PRESCRIBED. STAFF AGREEABLE WITH PLAN 3. ALL PATIENT QUESTIONS ANSWERED RELATED TO MEDICATIONS, PLAN OF CARE, AND EXPECTED OUTCOMES. 4. SAFETY PLAN DISCUSSED. 5. BUN CREAT AND VALPROIC LEVEL DRAW THURSDAY MORNING 6. DISCONTINUE HS QUETIAPINE ZYPREXA IS NOW SCHEDULED 7. INCREASE DEPAKOTE TO 125MG AT 1300 AND 250MG DAILY AT HS JORGE CHARLES NP Mar 03, 2020 11:31
[2020-03-03] MEDS: DEPAKOTE SPRINKLE PO SCH (12:28)
--- NOTE | 2020-03-03 16:27 | NUR ---
PIRP P: ALTERATION IN MOOD, ALTERED THOUGHT PROCESS I: Q15 MIN MONITORING, ASSESS FOR PSYCHOTIC SYMPTOMS, ASSESS FOR DEPRESSION/ANXIETY, PROVIDE SAFE AND SUPPORTIVE ENVIRONMENT, REINFORCE RELAXATION TECHNIQUES, PROVIDE TASK-ORIENTED ACTIVITIES, RE-ORIENT TO SURROUNDINGS NEEDED, ALTERNATE REST/ACTIVITY, GIVE CLEAR AND SIMPLE INSTRUCTIONS, ASSIST WITH DIFFERENTIATING BETWEEN INTERNAL AND EXTERNAL REALITY, REINFORCE FALL PREVENTION TECHNIQUES, REDIRECT WITH VERBALIZATION, PROVIDE 1:1 TO ENCOURAGE EXPRESSION OF FEELINGS, GIVE MEDICATIONS ORDERED R: PT HAS BRIGHT, PLEASANT AFFECT THROUGHOUT SHIFT. INITIATES INTERACTION WITH STAFF AND PEERS. HAS NOT EXHIBITED THREATENING OR COMBATIVE BEHAVIORS, BUT HAS EXHIBITED PERIODS OF INCREASED CONFUSION AND SUBSEQUENT DELUSIONAL THOUGHTS. PT HAS BEEN ABLE TO BE REDIRECTED WITH VERBALIZATION. TAKES MEDICATIONS ORDERED, IS COOPERATIVE WITH ADLS, AND PARTICIPATES IN SOME GROUP ACTIVITIES. PT HAS BEEN CLOSELY MONITORED D/T FREQUENT ATTEMPTS TO AMBULATE WITHOUT ASSIST, FALL REINFORCEMENT EDUCATION INEFFECTIVE D/T COGNITIVE IMPAIRMENT. P: HS DEPAKOTE DOSE INCREASED
[2020-03-03 19:50] VITALS: BP 120/42
[2020-03-03] MEDS: LIPITOR PO SCH (20:19)
[2020-03-03] MEDS: DEPAKOTE ER PO SCH (20:19)
[2020-03-03] MEDS: ZYPREXA ZYDIS SL SCH (20:20)
--- NOTE | 2020-03-04 05:29 | NUR ---
P.I.R.P. P. ALTERATION IN THOUGHT PROCESS I. PROVIDE 1:1 INTERVENTION TO ALLOW PATIENT TO EXPRESS FEELINGS, PROVIDE SAFE ENVIRONMENT, PROVIDE EVERY 15 MINUTE CHECKS, PROVIDE MEDICATIONS ORDERED PER MD, PROVIDE TASK ORIENTED GROUP ACTIVITY AND ENCOURAGE PARTICIPATION, PROVIDE ACTIVITY AND REST PERIODS FOR PATIENT. MONITOR FOR COGNITIVE CHANGES. MONITOR SAFETY FOR FALLS, R. PATIENT TOOK MEDS ORDERED, DID NOT ATTEND GROUP, RESTED IN HER ROOM, REMAINED IN HER ROOM, PATIENT HAD NO BEHAVIORS THIS SHIFT, SLEEP INTERRUPTED MULTIPLE TIMES TO URINATE THEN WOULD RETURN TO BED. PLACED BEDSIDE COMMODE BY BED, NO FALLS THIS SHIFT. PATIENT DENIES ANXIETY,DENIED DEPRESSION, NO HALLUCINATIONS NOTED THIS SHIFT. P. CONTINUE CURRENT PLAN OF CARE.
[2020-03-04] MEDS: HUMULIN R SQ SCH ×4 (07:22→20:26)
[2020-03-04 09:18] VITALS: BP 157/62
[2020-03-04] MEDS: IMDUR PO SCH (09:19)
[2020-03-04] MEDS: ZESTRIL PO SCH (09:19)
[2020-03-04] MEDS: DITROPAN PO SCH ×3 (09:19→20:02)
[2020-03-04] MEDS: AMARYL PO SCH (09:20)
[2020-03-04] MEDS: CIPRO PO SCH (09:20)
[2020-03-04] MEDS: LOPRESSER PO SCH ×2 (09:20→20:03)
--- NOTE | 2020-03-04 12:39 | NUR ---
TELEMED PT WAS SEEN BY Esther CHARLES NP. RECEIVED ORDERS TO START MELATONIN AT HS, SEE EMR.
--- NOTE | 2020-03-04 12:44 | PRM.PN ---
Mood: good Sleep: 3.75 hours, up 14 times to urinate Appetite: ohh Lord I could eat you if you stand still Suidical thoughts: denies Homicidal thoughts: denies Recent stressors: urinary urgency- "all the time" Family support: talked to; part of them, mother, father, coming to pick me up Aggressive Behavior: not present, makes a joke, just [place] my Ability to Perform ADL'sc: staff assist Psychotic sympstoms: denies Manic Symptoms: not exit seeking but some up and down Living situation: "were moving to [place]" he and I have an apartment Illicit Drug usec: na Alcoholo use: I don't drink booze, misheard the word mood for booze Tobacco use: na Family,PT,Surgical,&Current HX: (1) Delusional disorder (2) Dementia (3) Combative behavior (4) Urinary tract infection Anxity Symptoms: denies Anger/Irritablility: denies Muscle Strength & Tone: Rigidity Gait & Station: Ataxic Appearance: Well groomed/hygience Attitude & Behaviour: Cooperative/Pleasant Mood & Affect: Full Orientation: Disoriented to place, Disoriented to time Attention/Concentration: Fair attention, Fair concentration Speech: Reg rate/vol/rhyth/prosod Judgement/Insight: Poor judgement, Poor insight Thought Process: Circumferential Language: Luxembourgish Thought content/Abnormal/Psych: Delusions (today perceptions not well ) Fund of Knowledge: WN Associations: Other Constitutional: None Neurological: None Psychiatric: Psychosis [place] I: dementia, delusional disorder [place] III: UTI, nocturia [place] IV: lives in snf Assessment/Plan Assessment/Plan Plan Nursing: she was pleasant, did not hallucinate, but she was up urinating 14 times during the night, plesant, she gets up, then wants to go back to bed, does report being tired she was 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 talks of [place]- her and her are moving to [place] admits she wants to take a nap, says she won't have time prior to the pig work, "it just skipped my mind" knows 2020 president "that stupid trump" Vital Signs Date Time Temp Pulse Resp B/P (MAP) Pulse Ox O2 Delivery O2 Flow Rate FiO2 03/04/20 09:20 78 157/62 03/04/20 09:18 98.2 20 97 Room Air Allergies Coded Allergies Type Severity Reaction Last Updated Verified azithromycin Allergy Unknown 02/21/20 Yes cyanocobalamin (vitamin B12) Allergy Unknown 02/21/20 Yes ferrous sulfate Allergy Unknown 02/21/20 Yes meperidine Allergy Unknown 02/21/20 Yes Current Medications Medications (Trade) Dose Ordered Sig/Colton PRN Reason Start Time Stop Time Status Last Admin Divalproex Sodium (Depakote Sprinkle) 125 mg 1300 03/03/20 13:00 03/23/20 21:00 03/03/20 12:28 Divalproex Sodium (Depakote Er) 250 mg HS 03/03/20 21:00 04/02/20 20:59 03/03/20 20:19 Olanzapine (Zyprexa Zydis) 5 mg HS 03/03/20 21:00 04/02/20 20:59 03/03/20 20:20 Psychotropics: depakote sprinkles 125mg bid, afternoon and hs olanzapine 5mg prn and scheduled 5mg daily at hs aricept 10mg po daily at hs (stopped due to elevated creat- bun) seroquel 25mg PO QHS sleep/mood (did not consistently provide sleep at night) remeron 7.5mg po daily at hs - stopped has not been consistently helpful with sleep Summary: Urinary urgency appear to have blocked sleep during the night, today not mumbling at the end of conversation but her perception of current time of her life is much worse today, can say 2019 but believes her parents are living and about to silva pigs with her help CONSENT: Consent was obtained by patient for telemedicine visit. Consent was obtained for the presence of staff member throughout encounter. Privacy was maintained throughout encounter PLAN: 1. CONTINUE BEHAVIORAL HEALTH MANAGEMENT. 2. CONTINUE CURRENT MEDICATIONS PRESCRIBED. STAFF AGREEABLE WITH PLAN 3. ALL PATIENT QUESTIONS ANSWERED RELATED TO MEDICATIONS, PLAN OF CARE, AND EXPECTED OUTCOMES. 4. SAFETY PLAN DISCUSSED. 5. BUN CREAT AND VALPROIC LEVEL DRAW THURSDAY MORNING 6. START MELATONIN 3MG PO DAILY AT HS 7 WOULD APPRECIATE HOSPITALIST EXPERTISE RELATED TO UTI TREATMENT; CONTINUES TO HAVE URGENCY JORGE CHARLES NP Mar 04, 2020 12:44
[2020-03-04] MEDS: DEPAKOTE SPRINKLE PO SCH (12:58)
--- NOTE | 2020-03-04 14:02 | NUR ---
CLARIFICATION NOTIFIED DR. STOVER OF NO ID AND SENS FOR UA THAT WAS PREVIOUSLY OBTAINED AND LAST DOSE OF CIPRO ADMINISTERED THIS A.M. RECEIVED ORDERS TO REPEAT UA, NO ADDITIONAL ORDERS RECEIVED AT THIS TIME.
--- NOTE | 2020-03-04 16:51 | NUR ---
PIRP P: ALTERATION IN MOOD, ALTERED THOUGHT PROCESS I: Q15 MIN MONITORING, ASSESS FOR PSYCHOTIC SYMPTOMS, RE-ORIENT TO REALITY, REINFORCE RELAXATION TECHNIQUES, PROVIDE TASK-ORIENTED ACTIVITIES, RE-ORIENT TO SURROUNDINGS NEEDED, ALTERNATE REST/ACTIVITY, GIVE CLEAR AND SIMPLE INSTRUCTIONS, REINFORCE FALL PREVENTION TECHNIQUES, REDIRECT WITH VERBALIZATION, PROVIDE 1:1 TO ENCOURAGE EXPRESSION OF FEELINGS, GIVE MEDICATIONS ORDERED R: PT HAS PLEASANT, BRIGHT AFFECT THROUGHOUT SHIFT. HAS NOT EXHIBITED THREATENING OR COMBATIVE BEHAVIORS. DENIES FEELINGS OF DEPRESSION, ANXIETY, SI/HI. NO HALLUCINATIONS NOTED THIS SHIFT, CONT TO MAKE SPORADIC DELUSIONAL STATEMENTS, BUT HAS BEEN ABLE TO BE REDIRECTED WITH VERBALIZATION. PT HAS BEEN ALERT AND ORIENTED TO SELF, TOWN, PLACE, AND YEAR, BUT DOES REMAIN FORGETFUL REGARDING DISCHARGE PLANNING. PT DID NOT PARTICIPATE IN EARLY GROUP ACTIVITIES, BUT DID BECOME INCREASINGLY ALERT AND SOCIAL FOR LATER PART OF SHIFT. INTERACTS APPROPRIATELY WITH STAFF AND PEERS. HAS BEEN COOPERATIVE WITH ADLS, TAKES MEDICATIONS ORDERED. ATTEMPTS TO AMBULATE WITHOUT ASSIST AT TIMES, REQUIRES FREQUENT REINFORCEMENT OF FALL PREVENTION TECHNIQUES. P: PT STARTING SCHEDULED MELATONIN TONIGHT.
[2020-03-04 20:00] VITALS: BP 158/82
[2020-03-04] MEDS: LIPITOR PO SCH (20:02)
[2020-03-04] MEDS: ZYPREXA ZYDIS SL SCH (20:02)
[2020-03-04] MEDS: MELATONIN PO SCH (20:02)
[2020-03-04] MEDS: DEPAKOTE ER PO SCH (20:03)
--- NOTE | 2020-03-04 21:00 | NUR ---
Medication pt. took new medication at this time for sleep Melatonin will cont to monitor pt. behavior
--- NOTE | 2020-03-05 03:32 | NUR ---
PIRP P: ALTERATION IN MOOD, ALTERED THOUGHT PROCESS I: Q15 MIN MONITORING, ASSESS FOR PSYCHOTIC SYMPTOMS, RE-ORIENT TO REALITY, REINFORCE RELAXATION TECHNIQUES, PROVIDE TASK-ORIENTED ACTIVITIES, RE-ORIENT TO SURROUNDINGS NEEDED, ALTERNATE REST/ACTIVITY, GIVE CLEAR AND SIMPLE INSTRUCTIONS, REINFORCE FALL PREVENTION TECHNIQUES, REDIRECT WITH VERBALIZATION, PROVIDE 1:1 TO ENCOURAGE EXPRESSION OF FEELINGS, GIVE MEDICATIONS ORDERED R: PT HAS BEEN ANXIOUS, DISORIENTED AND WANTING TO MOVE BACK AND FORTH IN THE HALLWAY DURING THE EARLY PART OF THE SHIFT. DENIES FEELINGS OF DEPRESSION. NO HALLUCINATIONS NOTED. MADE SPORADIC DELUSIONAL STATEMENTS BUT HAS BEEN REDIRECTED WITH VERBALIZATION. PT IS ALERT AND ORIENTED TO SELF, PLACE, AND YEAR, BUT DOES REMAIN FORGETFUL REGARDING DISCHARGE PLANNING. PT PARTICIPATED IN EARLY GROUP ACTIVITIES. INTERACTS APPROPRIATELY WITH STAFF DURING THE LATER PART OF THE SHIFT. HAS BEEN COOPERATIVE WITH ADLS, TAKES MEDICATIONS ORDERED. ATTEMPTS TO AMBULATE WITHOUT ASSIST AT TIMES, REQUIRES FREQUENT REINFORCEMENT OF FALL PREVENTION TECHNIQUES. P: CONTINUE PLAN OF CARE.
--- NOTE | 2020-03-05 06:06 | NUR ---
Medication pt.has only slept 4 hours, with the Melatonin, and has been up to the bathroom numerous times voiding, and has been incont.unable to get ua.at this time
[2020-03-05 07:15] VITALS: BP 145/65
[2020-03-05 07:22] LABS: APPEARANCE,URINE CLEAR (CLEAR); BILIRUBIN,URINE NEGATIVE (NEGATIVE); UA COLOR YELLOW (YELLOW)
[2020-03-05 07:23] LABS: UROBILINOGEN,URINE NORMAL (NEGATIVE)
[2020-03-05] MEDS: HUMULIN R SQ SCH ×4 (07:36→20:15)
--- NOTE | 2020-03-05 08:00 | NUR ---
DR STOVER: DR STOVER NOTIFIED OF RESULTS OF UA. NO NEW ORDERS RECEIVED.
[2020-03-05] MEDS: DITROPAN PO SCH ×3 (08:35→20:13)
[2020-03-05] MEDS: ZESTRIL PO SCH (08:35)
[2020-03-05] MEDS: LOPRESSER PO SCH ×2 (08:36→20:14)
[2020-03-05] MEDS: IMDUR PO SCH (08:36)
[2020-03-05] MEDS: AMARYL PO SCH (08:36)
--- NOTE | 2020-03-05 11:29 | PRM.PN ---
Mood: good, lousy day, I am playing bingo and lost Sleep: 4 hours Appetite: breakfast- I dont' know, does not remember Suidical thoughts: denies Homicidal thoughts: denies Recent stressors: urinary frequency, she says in last 6 months Family support: "I may have to move in with someone" Aggressive Behavior: not been aggressive Ability to Perform ADL'sc: staff assist Psychotic sympstoms: denies, does not stay oriented Manic Symptoms: is talking rapid today, then loses thoughts Living situation: lives at snf, Illicit Drug usec: na Alcoholo use: na Tobacco use: na Family,PT,Surgical,&Current HX: (1) Delusional disorder (2) Dementia (3) Combative behavior Anxity Symptoms: we fixing to eat, as soon as you ar through with me Anger/Irritablility: denies Muscle Strength & Tone: Rigidity Gait & Station: Ataxic Appearance: Well groomed/hygience Attitude & Behaviour: Cooperative/Pleasant Mood & Affect: Full Orientation: Disoriented to place, Disoriented to time Attention/Concentration: Fair attention, Fair concentration Speech: Reg rate/vol/rhyth/prosod (a bit of mumbling at the end of sentences) Judgement/Insight: Fair judgement, Poor insight Thought Process: Circumferential Language: Bermudian Thought content/Abnormal/Psych: Delusions Fund of Knowledge: WNL Associations: Other Constitutional: None Neurological: None Psychiatric: Psychosis [place] I: dementia, delusional disorder [place] IV: lives at [facility] Assessment/Plan Assessment/Plan Plan Nursing: urinary urgency- frequency, antibiotic stopped, ua was improved, nocturia does appear to effect sleep does nap in the day pleasant - participates covid test done- needed for admission to snf Patient: "they keep me awake" as the reason she does not sleep Vital Signs Date Time Temp Pulse Resp B/P (MAP) Pulse Ox O2 Delivery O2 Flow Rate FiO2 03/05/20 08:36 69 145/65 03/05/20 07:15 97.9 16 97 Room Air Allergies Coded Allergies Type Severity Reaction Last Updated Verified azithromycin Allergy Unknown 02/21/20 Yes cyanocobalamin (vitamin B12) Allergy Unknown 02/21/20 Yes ferrous sulfate Allergy Unknown 02/21/20 Yes meperidine Allergy Unknown 02/21/20 Yes Current Medications Medications (Trade) Dose Ordered Sig/Colton PRN Reason Start Time Stop Time Status Last Admin Divalproex Sodium (Depakote Sprinkle) 125 mg 1300 03/03/20 13:00 03/23/20 21:00 03/04/20 12:58 Divalproex Sodium (Depakote Er) 250 mg HS 03/03/20 21:00 04/02/20 20:59 03/04/20 20:03 Melatonin (Melatonin) 3 mg HS 03/04/20 21:00 03/23/20 21:00 03/04/20 20:02 Olanzapine (Zyprexa Zydis) 5 mg HS 03/03/20 21:00 04/02/20 20:59 03/04/20 20:02 Psychotropics: melatonin 3mg po daily at hs depakote sprinkles 125mg morning and 250mg hs olanzapine 5mg prn and scheduled 5mg daily at hs aricept 10mg po daily at hs (stopped due to elevated creat- bun) seroquel 25mg PO QHS sleep/mood (did not consistently provide sleep at night) remeron 7.5mg po daily at hs - stopped has not been consistently helpful with sleep Summary: she is pleasant but directive as well, tells me she gets to have lunch as soon as I am done with her, not staying oriented, not recalling she l brenda at snf but will recite the correct year, she has steadily had urinary urgency since admission, does not appear worse with anticholinergic side effect CONSENT: Consent was obtained by patient for telemedicine visit. Consent was obtained for the presence of staff member throughout encounter. Privacy was maintained throughout encounter PLAN: 1. CONTINUE BEHAVIORAL HEALTH MANAGEMENT. 2. CONTINUE CURRENT MEDICATIONS PRESCRIBED. STAFF AGREEABLE WITH PLAN 3. ALL PATIENT QUESTIONS ANSWERED RELATED TO MEDICATIONS, PLAN OF CARE, AND EXPECTED OUTCOMES. 4. SAFETY PLAN DISCUSSED. 5. BUN CREAT AND VALPROIC LEVEL DRAW Thursday JORGE CHARLES NP Mar 05, 2020 11:29
[2020-03-05] MEDS: DEPAKOTE SPRINKLE PO SCH (13:05)
--- NOTE | 2020-03-05 17:42 | NUR ---
PIRP: P: ALTERED THOUGHT PROCESS, FREQUENCY OF URINATION I: PROVIDE MEDICATIONS ORDERED BY PHYSICIAN. ENCOURAGE ATTENDANCE AND PARTICIPATION OF ALL GROUPS. ALLOW PATIENT TO VOICE FEELINGS AND CONCERNS. PROVIDE SAFE ENVIRONMENT. MONITOR PATIENT FOR DEPRESSION, ANXIETY, SUICIDAL IDEATION, AND PSYCHOTIC SYMPTOMS. R: PATIENT HAS TAKEN ALL MEDICATIONS ORDERED AND HAS BEEN COOPERATIVE. SHE IS DELUSIONAL STATING "HAVE THE GIRLS PICKED UP THE PIGS YET?"SHE HAS BEEN ASKING FOR A RIDE HOME. SHE IS A RISK FOR FALLS AND REQUIRES ASSISTANCE WHEN UP FOR TOILETING AND AMBULATION. P: CONTINUE CURRENT PLAN OF CARE.
[2020-03-05 20:00] VITALS: BP 153/60
[2020-03-05] MEDS: ZYPREXA ZYDIS SL SCH (20:13)
[2020-03-05] MEDS: MELATONIN PO SCH (20:13)
[2020-03-05] MEDS: LIPITOR PO SCH (20:13)
[2020-03-05] MEDS: DEPAKOTE ER PO SCH (20:13)
--- NOTE | 2020-03-06 01:28 | NUR ---
STATUS Pt repeatedly up to bathroom to void during the night, unable to rest for any extended amount of time. Asked patient if she remembers getting up to go to the bathroom previously, 15 minutes prior, pt states, "Yes, but I need to go again". Asked pt if it hurts when she voids, pt states yes, it mak very bad. Pt voided small amount on BSC. Assisted back to bed, pt appears tired, now attempting to rest.
[2020-03-06] MEDS: HUMULIN R SQ SCH ×4 (07:30→20:37)
[2020-03-06 08:45] VITALS: BP 126/58
[2020-03-06 08:57] LABS: CALCIUM 9.4 mg/dL (8.4-10.5); CARBON DIOXIDE 28.7 mmol/L (20.0-32)
[2020-03-06] MEDS: DITROPAN PO SCH ×4 (09:00→20:18)
[2020-03-06] MEDS: ZESTRIL PO SCH ×2 (09:00→10:49)
[2020-03-06] MEDS: IMDUR PO SCH ×2 (09:00→10:49)
[2020-03-06] MEDS: LOPRESSER PO SCH ×3 (09:00→20:20)
[2020-03-06] MEDS: AMARYL PO SCH (09:00)
[2020-03-06 09:34] LABS: EOSINOPHIL # 0.1 10^3/uL (0.0-0.2); LYMPHOCYTES # 1.9 10^3/uL (1.0-4.8); LYMPHOCYTES % 22.6 % (24.0-44.0); MEAN CORP HGB 29.2 pg (26-34); MONOCYTES # 0.8 10^3/uL (0.3-0.8); MONOCYTES % 9.6 % (5.0-12.0); NEUTROPHIL # 5.4 10^3/uL (1.8-7.7); NEUTROPHILS % 66.2 % (41.0-85.0); PLATELET COUNT 223 10^3/uL (150-400); RED CELL DISTRIBUTION WIDTH 12.4 % (11.5-14.5)
--- NOTE | 2020-03-06 10:07 | NUR ---
Medications Patient morning medications held due to lethargy. Patient Slept 3.25 hours the previous night. To the Day Room for breakfast, managed to eat a banana before falling asleep over her tray. Assisted back to bed where she has been sleeping for 1.5 hours and continues to sleep. Addendum: 03/06/20 at 1136 by JEANNE UriarteM/S JEANNE 1047 Patient given his A.M. medications at 1047. Medications included Imdur, Ditropan, Metroprolol Tartrate, Lisinopril.
--- NOTE | 2020-03-06 14:01 | PRM.PN ---
Mood: tired and irritable, Sleep: 3. 25 hours of sleep Appetite: lower Suidical thoughts: does not make statements Homicidal thoughts: does not make statements Recent stressors: urinary urgency Family support: daughter in law Aggressive Behavior: will yell out appears more as hard of hearing Ability to Perform ADL'sc: staff assist Psychotic sympstoms: does not stay oriented Manic Symptoms: not hyperactive, tired, mood appears changed by tiredness Living situation: lives at snf Illicit Drug usec: na Alcoholo use: makes joke beer drinker, has not been requesting Tobacco use: na Family,PT,Surgical,&Current HX: (1) Combative behavior (2) Dementia (3) Delusional disorder Anxity Symptoms: said ready to go home Anger/Irritablility: denies Muscle Strength & Tone: Rigidity Gait & Station: Ataxic Appearance: Disheveled (as she is tired, will nod off, ) Attitude & Behaviour: Uncooperative (related to being tired, when she wakes very cooperative) Mood & Affect: Expansive Orientation: Disoriented to place, Disoriented to time Attention/Concentration: Poor attention, Poor concentration Speech: Reg rate/vol/rhyth/prosod, Impaired (she does some mumbling as she dozes off to sleep, then real alert for a moment) Judgement/Insight: Poor judgement, Poor insight Thought Process: Circumferential Language: Danish Thought content/Abnormal/Psych: Delusions Fund of Knowledge: WNL Associations: Other Constitutional: None Neurological: None Psychiatric: Psychosis (not staying oriented) [place] I: delusional disorder, dementia [place] IV: lives in snf Assessment/Plan Assessment/Plan Plan Nursin.5 hours, frequency of urination, no treatment of uti, urine was clearer- 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, she was up for breakfast, did not eat well, 1pm Depakote not given yet, she is appearing sleepy when awake, in w/c still having frequency, hospitalist has ordered repeat UA- ua had cleared some after limited cipro, urgency has stayed covid test done- needed for admission to snf Patient: will say hi or mumble out of turn, does not appear interested in talking corrects me today, she asks for coke, normally is coffee drinker says "beer drinker" Laboratory Tests 03/05/20 16:05: Bedside Glucose 196H 03/05/20 19:24: Bedside Glucose 187H 03/06/20 07:01: White Blood Count 8.2, Red Blood Count 4.08, Hemoglobin 11.9L, Hematocrit 37.4, Mean Corpuscular Volume 91.7, Mean Corpuscular Hemoglobin 29.2, Mean Corpuscular Hemoglobin Concent 31.8L, Red Cell Distribution Width 12.4, Platelet Count 223, Mean Platelet Volume 10.0, Neutrophils (%) (Auto) 66.2, Lymphocytes (%) (Auto) 22.6L, Monocytes (%) (Auto) 9.6, Neutrophils # (Auto) 5.4, Lymphocytes # (Auto) 1.9, Monocytes # (Auto) 0.8, Absolute Immature Granulocyte (auto 0.03, Absolute Eosinophils (auto) 0.1, Immature Granulocytes % 0.04, Eosinophils % 1.0, Basophils % 0.0, Basophils # 0.0, Sodium Level 141, Potassium Level 4.4, Chloride Level 105.0, Carbon Dioxide Level 28.7, Anion Gap 11.7, Blood Urea Nitrogen 20H, Creatinine 1.68H, Estimated GFR () 34.9, Est GFR (CKD-EPI)(Non-Afr Macanese) 28.8, BUN/Creatinine Ratio 11.0, Glucose Level 93, Calcium Level 9.4, Total Bilirubin 0.2, Aspartate Amino Transf (AST/SGOT) 32, Alanine Aminotransferase (ALT/SGPT) 27, Alkaline Phosphatase 52, Total Protein 5.9L, Albumin 2.9L, Globulin 3.0, Valproic Acid (Depakene) Level 59 03/06/20 08:00: Bedside Glucose 92 03/06/20 11:46: Bedside Glucose 214H Vital Signs Date Time Temp Pulse Resp B/P (MAP) Pulse Ox O2 Delivery O2 Flow Rate FiO2 03/06/20 10:49 126/58 03/06/20 10:48 68 03/06/20 08:45 97.9 18 97 Room Air Allergies Coded Allergies Type Severity Reaction Last Updated Verified azithromycin Allergy Unknown 02/21/20 Yes cyanocobalamin (vitamin B12) Allergy Unknown 02/21/20 Yes ferrous sulfate Allergy Unknown 02/21/20 Yes meperidine Allergy Unknown 02/21/20 Yes Current Medications Medications (Trade) Dose Ordered Sig/Colton PRN Reason Start Time Stop Time Status Last Admin Divalproex Sodium (Depakote Er) 250 mg HS 03/03/20 21:00 04/02/20 20:59 03/05/20 20:13 Melatonin (Melatonin) 3 mg HS 03/04/20 21:00 03/23/20 21:00 03/05/20 20:13 Olanzapine (Zyprexa Zydis) 5 mg HS 03/03/20 21:00 04/02/20 20:59 03/05/20 20:13 Psychotropics: melatonin 3mg po daily at hs depakote sprinkles 125mg morning and 250mg hs olanzapine 5mg prn and scheduled 5mg daily at hs aricept 10mg po daily at hs (stopped due to elevated creat- bun) seroquel 25mg PO QHS sleep/mood (did not consistently provide sleep at night) remeron 7.5mg po daily at hs - stopped has not been consistently helpful with sleep Summary: Lorna is quite tired although when she stands, then sits down, takes a drink of her soda she is able to engage, lets me know she does feel tired, laughs, CONSENT: Consent was obtained by patient for telemedicine visit. Consent was obtained for the presence of staff member throughout encounter. Privacy was maintained throughout encounter PLAN: 1. CONTINUE BEHAVIORAL HEALTH MANAGEMENT. 2. CONTINUE CURRENT MEDICATIONS PRESCRIBED. STAFF AGREEABLE WITH PLAN- see change below 3. ALL PATIENT QUESTIONS ANSWERED RELATED TO MEDICATIONS, PLAN OF CARE, AND EXPECTED OUTCOMES. 4. SAFETY PLAN DISCUSSED. 5. Greatly appreciate hospitalist assistance with urinary urgency, 6. Hold depakote this afternoon as she is tired, stop HS depakote of 250mg- see how night goes with urgency, Restart depakote er 125mg at 1500 tomorrow, it has helped with irritability, assisted with some of sundowning behaviors. 7. trial of Temazepam 15mg po daily at hs, initiate sleep, JORGE CHARLES NP Mar 06, 2020 14:01
--- NOTE | 2020-03-06 16:05 | NUR ---
NOTIFIED DR. PERKINS: DR PERKINS NOTIFIED OF PATIENT HAVING FREQUENCY OF URINE. ORDER RECEIVED TO GET UA
--- NOTE | 2020-03-06 18:11 | NUR ---
PIRP: P: ALTERED THOUGHT PROCESS, FREQUENCY OF URINATION I: PROVIDE MEDICATIONS ORDERED BY PHYSICIAN. ENCOURAGE ATTENDANCE AND PARTICIPATION OF ALL GROUPS. ALLOW PATIENT TO VOICE FEELINGS AND CONCERNS. PROVIDE SAFE ENVIRONMENT. MONITOR PATIENT FOR DEPRESSION, ANXIETY, SUICIDAL IDEATION, AND PSYCHOTIC SYMPTOMS. R: PATIENT WAS SLEEP ALL DAY . DEPAKOTE AFTERNOON DOSE HELD AND HS TO BE HELD WELL. PATIENT CONTINUES TO NOT SLEEP WELL AT NIGHT AND IS TIRED DURING THE DAY. SHE REMAINS DELUSIONAL AND CONFUSED. IS A HIGH FALL RISK. P: CONTINUE CURRENT PLAN OF CARE.
[2020-03-06 20:00] VITALS: BP 125/64
[2020-03-06] MEDS ORDERED: RESTORIL PO ONE (20:09)
[2020-03-06] MEDS: ZYPREXA ZYDIS SL SCH (20:18)
[2020-03-06] MEDS: MELATONIN PO SCH (20:18)
[2020-03-06] MEDS: LIPITOR PO SCH (20:18)
[2020-03-06] MEDS: RESTORIL PO SCH (20:20)
[2020-03-06 21:15] LABS: APPEARANCE,URINE CLEAR (CLEAR); BILIRUBIN,URINE NEGATIVE (NEGATIVE); UA COLOR YELLOW (YELLOW)
[2020-03-06 21:16] LABS: UROBILINOGEN,URINE NORMAL (NEGATIVE)
--- NOTE | 2020-03-07 01:42 | NUR ---
PIRP: P- ALTERED THOUGHT PROCESS AND RISK FOR FALLS I- PROVIDE SAFE AND SUPPORTIVE ENVIRONMENT, MONITOR FOR SAFETY Q15 MINUTES, PROVIDE MEDICATION ORDERED, GIVE CLEAR AND SIMPLE INSTRUCTIONS AND PROVIDE NON SLIP SOCKS R-PT IS VERY PLEASANT AND SOMETIMES COOPERATIVE. PATIENT IS ALERT AND ORIENTED TO SELF AND PLACE BUT IS CONFUSED. PATIENT DENIES DEPRESSION, ANXIETY AND SI/HI. NO HALLUCINATIONS OR DELUSIONS NOTED. PT SEATED IN WHEELCHAIR AND DEMANDING TO BE WHEELED IN HALLWAY AND INTO OTHER PT ROOMS. WHEN PATIENT DOES NOT GET HER WAY PT BECOMES BELLIGERENT. PT RE-ORIENTED AND INFORMED THAT SHE CAN NOT ENTER OTHER RESIDENTS ROOMS. PT HAS URINARY FREQUENCY AND IS GETTING UP SEVERAL TIMES TO USE BSC/TOILET. PT INITIALLY REFUSED TO HAVE VITAL SIGNS ASSESSED SEVERAL TIMES BUT EVENTUALLY COMPLIED ON REPEAT REQUESTS FROM STAFF. PATIENT ATTEMPTING TO INTERACT WITH OTHER RESIDENT AND COMPLIES WITH STAFF WHEN ASKED. PATIENT TOOK ALL MEDICATIONS ORDERED. PATIENT ATTEMPTED TO PARTICIPATE IN GROUPS BUT WAS RESTLESS AND CONFUSED AND DID NOT WANT TO BE IN ONE PLACE. PATIENT ATE EVENING SNACK OF CRACKERS WITH PEANUT BUTTER AND SODA. PT IS WAKING UP APPROXIMATELY EVERY 30 MINS TO VOID. AND NEEDS ASSISTANCE DUE TO SEVERE DROWSINESS AND HIGH FALL RISK. P- WILL CONTINUE WITH CURRENT TREATMENT PLAN
[2020-03-07] MEDS: HUMULIN R SQ SCH ×4 (07:29→20:37)
[2020-03-07 07:59] VITALS: BP 133/66
--- NOTE | 2020-03-07 08:54 | PRM.PN ---
Mood: pretty irritable, believing she needed to visit someone Sleep: 5.5 hours, longest stretch -longest stretch 45 minutes Appetite: this morning not well, generally hungry, requests beverages Suidical thoughts: does not make hopeless statements Homicidal thoughts: does not make statements Recent stressors: urinary frequency, she is aware of issue Family support: she will request to call son and daughter in law Aggressive Behavior: not been present Ability to Perform ADL'sc: assist of staff, weaker with transfers yesterday and today Psychotic sympstoms: not staying oriented to place and year Manic Symptoms: more fatigue today, easily falls back to sleep after urinating Living situation: lives in snf Illicit Drug usec: na Alcoholo use: na Tobacco use: na Family,PT,Surgical,&Current HX: (1) Delusional disorder (2) Dementia (3) Combative behavior Anxity Symptoms: na Anger/Irritablility: not as easily redirected as she had been Muscle Strength & Tone: Rigidity Gait & Station: Ataxic Appearance: Disheveled (she requested to lay down after getting up for [employer]) Attitude & Behaviour: Poor eye contact (she is resting, ) Mood & Affect: Blunted Orientation: Disoriented to place, Disoriented to time Attention/Concentration: Poor attention, Poor concentration Speech: Reg rate/vol/rhyth/prosod Judgement/Insight: Fair judgement, Poor insight Thought Process: Circumferential Language: Montserratian Thought content/Abnormal/Psych: Delusions Fund of Knowledge: WNL Associations: Other Constitutional: Fatigue Neurological: None Psychiatric: Psychosis [place] I: delusional disorder, dementia [place] III: urinary frequency [place] IV: lives in snf Assessment/Plan Assessment/Plan Plan Nursing: Jovi was up this morning, then she returned to her bed was talking to staff engaging but not as alert as she had previously been urinating 3 times in 3 hours of this morning, she can state she was up during the night 16 times, she did fall back asleep easily after urinating more confused, needing to go upstairs to check on someone, not as easily redirected at times she could be fully oriented with questions, today did not know [place], was in [place] she has not ate breakfast this morning, easily fell back asleep when placed in bed Patient: is fast asleep, due to lack of asleep did not wake her for rounds, Laboratory Tests 03/06/20 11:46: Bedside Glucose 214H 03/06/20 16:55: Bedside Glucose 250H 03/06/20 19:44: Bedside Glucose 234H 03/06/20 19:50: Urine Collection Type CCMS, Urine Color YELLOW, Urine Appearance CLEAR, Urine Bilirubin NEGATIVE, Urine Ketones NEGATIVE, Urine Specific [place] 1.015, Urine pH 6.5, Urine Protein NEGATIVE, Urine Urobilinogen NORMAL, Urine Nitrate NEGATIVE, Urine Leukocyte Esterase 1+, Urine Blood NEGATIVE, Urine RBC 0-2, Urine WBC 2-5, Urine Squamous Epithelial Cells FEW, Urine Bacteria RARE, Urine Glucose 250H 03/07/20 07:28: Bedside Glucose 90 Laboratory Tests 03/05/20 16:05: Bedside Glucose 196H 03/05/20 19:24: Bedside Glucose 187H 03/06/20 07:01: White Blood Count 8.2, Red Blood Count 4.08, Hemoglobin 11.9L, Hematocrit 37.4, Mean Corpuscular Volume 91.7, Mean Corpuscular Hemoglobin 29.2, Mean Corpuscular Hemoglobin Concent 31.8L, Red Cell Distribution Width 12.4, Platelet Count 223, Mean Platelet Volume 10.0, Neutrophils (%) (Auto) 66.2, Lymphocytes (%) (Auto) 22.6L, Monocytes (%) (Auto) 9.6, Neutrophils # (Auto) 5.4, Lymphocytes # (Auto) 1.9, Monocytes # (Auto) 0.8, Absolute Immature Granulocyte (auto 0.03, Absolute Eosinophils (auto) 0.1, Immature Granulocytes % 0.04, Eosinophils % 1.0, Basophils % 0.0, Basophils # 0.0, Sodium Level 141, Potassium Level 4.4, Chloride Level 105.0, Carbon Dioxide Level 28.7, Anion Gap 11.7, Blood Urea Nitrogen 20H, Creatinine 1.68H, Estimated GFR () 34.9, Est GFR (CKD-EPI)(Non-Afr Senegalese) 28.8, BUN/Creatinine Ratio 11.0, Glucose Level 93, Calcium Level 9.4, Total Bilirubin 0.2, Aspartate Amino Transf (AST/SGOT) 32, A lanine Aminotransferase (ALT/SGPT) 27, Alkaline Phosphatase 52, Total Protein 5.9L, Albumin 2.9L, Globulin 3.0, Valproic Acid (Depakene) Level 59 03/06/20 08:00: Bedside Glucose 92 03/06/20 11:46: Bedside Glucose 214H Vital Signs Date Time Temp Pulse Resp B/P (MAP) Pulse Ox O2 Delivery O2 Flow Rate FiO2 03/07/20 07:59 97.6 63 16 133/66 (88) 97 Room Air Allergies Coded Allergies Type Severity Reaction Last Updated Verified azithromycin Allergy Unknown 02/21/20 Yes cyanocobalamin (vitamin B12) Allergy Unknown 02/21/20 Yes ferrous sulfate Allergy Unknown 02/21/20 Yes meperidine Allergy Unknown 02/21/20 Yes Current Medications Medications (Trade) Dose Ordered Sig/Colton PRN Reason Start Time Stop Time Status Last Admin Divalproex Sodium (Depakote Sprinkle) 125 mg 1300 03/07/20 15:00 04/06/20 14:59 Melatonin (Melatonin) 3 mg HS 03/04/20 21:00 03/23/20 21:00 03/06/20 20:18 Temazepam (Restoril) 15 mg HS 03/06/20 21:00 03/23/20 21:00 03/06/20 20:20 Psychotropics: Temazepam 15mg po daily at hs melatonin 3mg po daily at hs depakote sprinkles lowered to 125mg daily in the afternoon, prevent sundowning, (valproic level was at 59 when she was on 375mg daily) olanzapine 5mg prn and scheduled 5mg daily at hs aricept 10mg po daily at hs (stopped due to elevated creat- bun) seroquel 25mg PO QHS sleep/mood (did not consistently provide sleep at night) remeron 7.5mg po daily at hs - stopped has not been consistently helpful with sleep Summary: Lorna is appearing more fatigued, does appear many night of not sleeping are starting to fatigue her CONSENT: Consent was obtained by patient for telemedicine visit. Consent was obtained for the presence of staff member throughout encounter. Privacy was maintained throughout encounter PLAN: 1. CONTINUE BEHAVIORAL HEALTH MANAGEMENT. 2. CONTINUE CURRENT MEDICATIONS PRESCRIBED. STAFF AGREEABLE WITH PLAN- Hold afternoon depakote if patient is still easily falling asleep. 3. ALL PATIENT QUESTIONS ANSWERED RELATED TO MEDICATIONS, PLAN OF CARE, AND EXPECTED OUTCOMES. 4. SAFETY PLAN DISCUSSED. 5. REQUEST HOSPITALIST TO REVIEW URINARY FREQUENCY AND EVENING BLOOD SUGARS WHICH MAY BE CONTRIBUTING JORGE CHARLES NP Mar 07, 2020 08:54
--- NOTE | 2020-03-07 08:58 | NUR ---
TELEMED PT WAS SEEN BY Esther CHARLES NP. RECEIVED ORDERS TO CHANGE DEPAKOTE FROM 1300 TO 1500. RECEIVED VERBAL ORDERS TO HOLD 1500 DEPAKOTE IF PT APPEARS DROWSY IN AFTERNOON.
[2020-03-07] MEDS: ZESTRIL PO SCH (10:02)
[2020-03-07] MEDS: LOPRESSER PO SCH ×2 (10:02→20:29)
[2020-03-07] MEDS: AMARYL PO SCH (10:02)
[2020-03-07] MEDS: IMDUR PO SCH (10:03)
[2020-03-07] MEDS: DITROPAN PO SCH (10:03)
--- NOTE | 2020-03-07 11:52 | NUR ---
DR. GREGORIO PERKINS CALLED AND NOTIFIED REGARDING PT VOIDING FREQUENTLY AT HS, TREND IN ACCU CHECKS, AND METFORMIN AND GLUCOTROL ON HOLD. REPORTS HE WILL REVIEW AND MAKE CHANGES, NO NEW ORDERS RECEIVED AT THIS TIME.
[2020-03-07] MEDS: DEPAKOTE SPRINKLE PO SCH (14:57)
--- NOTE | 2020-03-07 14:58 | NUR ---
ALEJANDRO HELD PER ORDERS OF Esther FENTON NP DEPAKOTE HELD DUE TO PT EASILY FALLING ASLEEP.
[2020-03-07] MEDS ORDERED: DEPAKOTE SPRINKLE PO SCH (15:00)
--- NOTE | 2020-03-07 17:14 | NUR ---
PIRP P: ALTERATION IN MOOD, ALTERED THOUGHT PROCESS I: Q15 MIN MONITORING, ASSESS FOR PSYCHOTIC SYMPTOMS, RE-ORIENT TO REALITY, PROVIDE TASK-ORIENTED ACTIVITIES, RE-ORIENT TO SURROUNDINGS NEEDED, ALTERNATE REST/ACTIVITY, GIVE CLEAR AND SIMPLE INSTRUCTIONS, REINFORCE FALL PREVENTION TECHNIQUES, REDIRECT WITH VERBALIZATION, GIVE MEDICATIONS ORDERED R: PT HAS FLAT, WITHDRAWN AFFECT THROUGHOUT SHIFT. REPORTS BEING TIRED D/T "PEEING ALL NIGHT." PT HAS RESTED IN BED WITH EYES CLOSED FREQUENTLY DURING SHIFT, WHEN ENCOURAGED TO BE UP OOB AND IN DAY ROOM, PT HAS SAT IN W/C WITH EYES CLOSED OR RESTS HEAD ON TABLE. PT RESPONDS TO NAME, ALERT AND ORIENTED TO SELF, MONTH, AND YEAR. EXHIBITS VARYING DELUSIONS R/T INCREASED CONFUSION, BUT HAS BEEN ABLE TO BE REDIRECTED WITH VERBALIZATION. DENIES FEELINGS OF DEPRESSION, ANXIETY, SI/HI. NO HALLUCINATIONS NOTED. PT HAS PARTICIPATED IN SOME GROUP ACTIVITIES, BUT REQUIRES FREQUENT PROMPTING D/T DROWSINESS. NO ACUTE DISTRESS NOTED, HAS NOT EXHIBITED THREATENING OR COMBATIVE BEHAVIORS. REMAINS COOPERATIVE WITH ADLS, TAKES MEDICATIONS ORDERED. P: ALTERNATE REST/ACTIVITY, RE-ORIENT TO SURROUNDINGS NEEDED
[2020-03-07 19:22] VITALS: BP 145/87
[2020-03-07] MEDS ORDERED: AMARYL ONE (19:39)
[2020-03-07] MEDS ORDERED: RESTORIL PO ONE (20:02)
[2020-03-07] MEDS: RESTORIL PO SCH (20:28)
[2020-03-07] MEDS: MELATONIN PO SCH (20:29)
[2020-03-07] MEDS: ZYPREXA ZYDIS SL SCH (20:29)
[2020-03-07] MEDS: LIPITOR PO SCH (20:31)
[2020-03-07] MEDS ORDERED: AMARYL PO SCH (21:00)
--- NOTE | 2020-03-08 00:03 | NUR ---
URINATION/NEW ORDER IN 3 HOUR PERIOD PATIENT HAS BEEN UP TO URINATE 6 TIMES, PATIENT WILL GET UP TO URINATE, LAYS BACK DOWN AND VOICES NEEDS TO GET BACK UP TO URINATE AGAIN, AT TIMES NO URINE OUT, OTHERS APPROXIMATELY 50 TO 75 ML URINE OUT. FREQUENCY AND DRIBBLING AND SMALL AMOUNT URINE OUT RECENTLY MORE SO DURING NIGHT. PATIENT ALSO NOTED THAT IF NO URINE OUT WHEN SHE WIPES LYRIC AREA SHE WILL EXCRETE SMALL AMOUNT URINE. PATIENT IS UNABLE TO REST/SLEEP WHEN THESES SYMPTOMS ARE OCCURRING. DUE TO THESE SYMPTOMS. CONTACTED DR. PERKINS, REPORTED ABOVE SYMPTOMS AND THAT PATIENT HAD URINATED APPROXIMATELY 17 TO 18 TIMES PREVIOUS NIGHT. ORDER RECEIVED MAY PLACE ABDUL CATH.
--- NOTE | 2020-03-08 01:03 | NUR ---
ABDUL CATH PATIENT UP TO URINATE FOR APPROXIMATELY 75 ML URINE. EDUCATED PATIENT ON ABDUL CATH AND PURPOSE OF SAME, PATIENT AGREED TO ABDUL CATH, USING ASEPTIC TECHNIQUE CLEANSED LYRIC AREA WITH BOZENA SOAP CLOTHS X 3 , USING STERILE TECHNIQUE AND STERILE SUPPLIES CLEANSED LYRIC AREA WITH BETADINE SWABS X 3 THEN INSERTED 16 FR 10 ML BALLOON ABDUL CATH, NO RESISTANCE MET, IMMEDIATE RETURN OF 700 ML YELLOW CLEAR URINE. PATIENT TOLERATED WELL. CATH SECUREMENT PLACED. LYRIC CARE PROVIDED, PATIENT WITH EXCORIATION TO LYRIC AREA, WHITISH DISCHARGE NOTED. BARRIER CREAM APPLIED.
--- NOTE | 2020-03-08 02:00 | NUR ---
CATH SECUREMENT PATIENT PULLED CATH SECUREMENT OFF VOICING IT HURT HER LEG.
--- NOTE | 2020-03-08 06:02 | NUR ---
P.I.R.P. P. ALTERATION IN MOOD AND THOUGHT PROCESS I. PROVIDE EVERY 15 MINUTE CHECKS, PROVIDE SAFE ENVIRONMENT, PROVIDE MEDICATIONS ORDERED PER MD, PROVIDE TASK ORIENTED GROUP ACTIVITY AND ENCOURAGE PARTICIPATION. RE DIRECT AND RE ORIENT NEEDED. MONITOR FOR CHANGES IN COGNITIVE STATUS. PROVIDE 1:1 INTERVENTION TO ALLOW PATIENT TO EXPRESS FEELINGS. R. PATIENT TOOK MEDS ORDERED, PARTICIPATED IN GROUP ACTIVITY, HAS HAD DELUSIONS, KEPT VOICING HER FRIEND THAT WAS HERE NEEDED A RIDE HOME, SHE NEEDED TO GET REDY TO GO TO [place] TODAY, RE DIRECTED AND RE ORIENTED NEEDED, PATIENT ORIENTED TO SELF AND YEAR. WAS RESTLESS DURING NIGHT NEEDED TO GET UP TO URINATE MULTIPLE TIMES HAS IN PAST NIGHTS ALSO, ORDER WAS RECEIVED PER DR PERKINS FOR ABDUL CATH PLACEMENT SEE ABDUL NOTE. PATIENT VOICED SHE STILL FELT URGE AT TIMES TO URINATE EVEN AFTER ABDUL CATH PLACED. P. CONTINUE CURRENT PLAN OF CARE
[2020-03-08] MEDS: HUMULIN R SQ SCH ×4 (07:30→20:38)
[2020-03-08 07:48] VITALS: BP 170/72
--- NOTE | 2020-03-08 08:34 | PRM.PN ---
Mood: good Sleep: 4.5 hours Appetite: okay Suidical thoughts: denies Homicidal thoughts: denies Recent stressors: denies Family support: son and daugther in law Aggressive Behavior: denies Ability to Perform ADL'sc: with staff assistance Psychotic sympstoms: denies Manic Symptoms: denies Living situation: SNF Illicit Drug usec: denies Alcoholo use: denies Tobacco use: denies Anxity Symptoms: denies Anger/Irritablility: not sleeping well Appearance: Well groomed/hygience, Appears age stated Attitude & Behaviour: Cooperative/Pleasant, Poor eye contact, Psychomotor retardation Mood & Affect: Euthymic/appr/congruent, Constricted Orientation: Disoriented to place, Disoriented to situation Attention/Concentration: Poor attention, Poor concentration Speech: Reg rate/vol/rhyth/prosod Judgement/Insight: Fair judgement, Fair insight Thought Process: Tangential Language: Turkmen Thought content/Abnormal/Psych: None/normal Fund of Knowledge: WNL Associations: WNL/Normal Associations Memory (recent and remote): Gross int/not form assess Constitutional: None Neurological: None Psychiatric: None [place] I: Delusional Disorder [place] III: Dementia Assessment/Plan Assessment/Plan Assessment/Plan Nursing: Trouble sleeping, trouble urinating -- slept better after cath Depakote given at 1500 Restoril did not seem to help with sleep, patient seems more tired/out of it during the day Patient: Patient keeping her eyes closed during interview "because I'm tired." She responds to some questions appropriately, but at times can be tangential. When asked about breakfast, she said "I'd like some"...then for rest of interview appeared to be moving her hands toward her mouth and pretending to eat something. She reports poor sleep, feels tired. Okay mood, no SI/HI. Oriented to person and year Laboratory Tests 03/06/20 11:46: Bedside Glucose 214H 03/06/20 16:55: Bedside Glucose 250H 03/06/20 19:44: Bedside Glucose 234H 03/06/20 19:50: Urine Collection Type CCMS, Urine Color YELLOW, Urine Appearance CLEAR, Urine Bilirubin NEGATIVE, Urine Ketones NEGATIVE, Urine Specific [place] 1.015, Urine pH 6.5, Urine Protein NEGATIVE, Urine Urobilinogen NORMAL, Urine Nitrate NEGATIVE, Urine Leukocyte Esterase 1+, Urine Blood NEGATIVE, Urine RBC 0-2, Urine WBC 2-5, Urine Squamous Epithelial Cells FEW, Urine Bacteria RARE, Urine Glucose 250H 03/07/20 07:28: Bedside Glucose 90 Laboratory Tests 03/05/20 16:05: Bedside Glucose 196H 03/05/20 19:24: Bedside Glucose 187H 03/06/20 07:01: White Blood Count 8.2, Red Blood Count 4.08, Hemoglobin 11.9L, Hematocrit 37.4, Mean Corpuscular Volume 91.7, Mean Corpuscular Hemoglobin 29.2, Mean Corpuscular Hemoglobin Concent 31.8L, Red Cell Distribution Width 12.4, Platelet Count 223, Mean Platelet Volume 10.0, Neutrophils (%) (Auto) 66.2, Lymphocytes (%) (Auto) 22.6L, Monocytes (%) (Auto) 9.6, Neutrophils # (Auto) 5.4, Lymphocytes # (Auto) 1.9, Monocytes # (Auto) 0.8, Absolute Immature Granulocyte (auto 0.03, Absolute Eosinophils (auto) 0.1, Immature Granulocytes % 0.04, Eosinophils % 1.0, Basophils % 0.0, Basophils # 0.0, Sodium Level 141, Potassium Level 4.4, Chloride Level 105.0, Carbon Dioxide Level 28.7, Anion Gap 11.7, Blood Urea Nitrogen 20H, Creatinine 1.68H, Estimated GFR () 34.9, Est GFR (CKD-EPI)(Non-Afr Guyanese) 28.8, BUN/Creatinine Ratio 11.0, Glucose Level 93, Calcium Level 9.4, Total Bilirubin 0.2, Aspartate Amino Transf (AST/SGOT) 32, Alanine Aminotransferase (ALT/SGPT) 27, Alkaline Phosphatase 52, Total Protein 5.9L, Albumin 2.9L, Globulin 3.0, Valproic Acid (Depakene) Level 59 03/06/20 08:00: Bedside Glucose 92 03/06/20 11:46: Bedside Glucose 214H Vital Signs Date Time Temp Pulse Resp B/P (MAP) Pulse Ox O2 Delivery O2 Flow Rate FiO2 03/07/20 07:59 97.6 63 16 133/66 (88) 97 Room Air Allergies Coded Allergies Type Severity Reaction Last Updated Verified azithromycin Allergy Unknown 02/21/20 Yes cyanocobalamin (vitamin B12) Allergy Unknown 02/21/20 Yes ferrous sulfate Allergy Unknown 02/21/20 Yes meperidine Allergy Unknown 02/21/20 Yes Current Medications Medications (Trade) Dose Ordered Sig/Colton PRN Reason Start Time Stop Time Status Last Admin Divalproex Sodium (Depakote Sprinkle) 125 mg 1300 03/07/20 15:00 04/06/20 14:59 Melatonin (Melatonin) 3 mg HS 03/04/20 21:00 03/23/20 21:00 03/06/20 20:18 Temazepam (Restoril) 15 mg HS 03/06/20 21:00 03/23/20 21:00 03/06/20 20:20 Psychotropics: Temazepam 15mg po daily at hs melatonin 3mg po daily at hs depakote sprinkles lowered to 125mg daily in the afternoon, prevent sundowning, (valproic level was at 59 when she was on 375mg daily) olanzapine 5mg prn and scheduled 5mg daily at hs aricept 10mg po daily at hs (stopped due to elevated creat- bun) seroquel 25mg PO QHS sleep/mood (did not consistently provide sleep at night) remeron 7.5mg po daily at hs - stopped has not been consistently helpful with sleep CONSENT: Consent was obtained by patient for telemedicine visit. Consent was obtained for the presence of staff member throughout encounter. Privacy was maintained throughout encounter Summary: 89 yo F, hx of dementia, admitted to [facility] for worsening mood/aggressive behaviors. Patient with continued trouble sleeping, seems tired during int erview, appears to fall asleep at times, more confused than before -- will d/c temazepam, try doxepin. No aggressive behaviors, consider d/c after sleep improves. Plan PLAN: 1. CONTINUE BEHAVIORAL HEALTH MANAGEMENT. 2. D/C Temazepam, trial of Doxepin 10mg PO QHS for sleep 3. ALL PATIENT QUESTIONS ANSWERED RELATED TO MEDICATIONS, PLAN OF CARE, AND EXPECTED OUTCOMES. 4. SAFETY PLAN DISCUSSED. 5. Appreciate hospitalist assistance with medical issues 6. Order Ammonia level WENDI TARANGO MD Mar 08, 2020 08:34
[2020-03-08] MEDS ORDERED: AMARYL ONE (08:37)
--- NOTE | 2020-03-08 08:39 | NUR ---
TELEMED PT WAS SEEN BY DR. TARANGO VIA TELEMEDICINE. RECEIVED ORDERS TO DISCONTINUE RESTORIL AND START DOXEPIN, SEE EMR.
[2020-03-08] MEDS: ZESTRIL PO SCH (08:41)
[2020-03-08] MEDS: LOPRESSER PO SCH ×2 (08:42→20:39)
[2020-03-08] MEDS: AMARYL PO SCH ×2 (08:42→16:30)
[2020-03-08] MEDS: IMDUR PO SCH (08:42)
--- NOTE | 2020-03-08 09:38 | NUR ---
PHARMACY SPOKE TO CATHIE IN PHARMACY, NOTIFIED REGARDING NEEDED DOSE OF DOXEPIN, REPORTS HE WILL ORDER DOSE IF NOT AVAILABLE.
--- NOTE | 2020-03-08 15:15 | NUR ---
DR. SUKHDEEP TARANGO NOTIFIED OF PT CONTINUING TO REST WITH EYES CLOSED EVEN WHEN SITTING UP IN W/C IN DAY ROOM, RECEIVED VERBAL ORDERS TO HOLD 1500 DOSE OF DEPAKOTE.
[2020-03-08] MEDS: DEPAKOTE SPRINKLE PO SCH (15:25)
[2020-03-08 16:34] VITALS: BP 135/49
--- NOTE | 2020-03-08 16:36 | NUR ---
PIRP P: ALTERATION IN MOOD, ALTERED THOUGHT PROCESS I: Q15 MIN MONITORING, ASSESS FOR PSYCHOTIC SYMPTOMS, MONITOR FOR CHANGES IN USUAL BEHAVIOR, RE-ORIENT TO REALITY, PROVIDE TASK-ORIENTED ACTIVITIES, RE-ORIENT TO SURROUNDINGS NEEDED, ALTERNATE REST/ACTIVITY, GIVE CLEAR AND SIMPLE INSTRUCTIONS, REINFORCE FALL PREVENTION TECHNIQUES, REINFORCE EDUCATION REGARDING USE OF STATLOCK FOR ABDUL CATHETER, REDIRECT WITH VERBALIZATION, GIVE MEDICATIONS ORDERED R: PT HAS FLAT, WITHDRAWN AFFECT MAJORITY OF SHIFT. HAS NOT EXHIBITED THREATENING OR COMBATIVE BEHAVIORS. HAS BECOME IRRITABLE AT TIMES WITH EDUCATION. NO HALLUCINATIONS NOTED, BUT DOES EXHIBIT VARYING DELUSIONS R/T CONFUSION. BELIEVES SHE NEEDS TO GO GET ON A PLANE TO GET TO [place], DOES NOT REMEMBER SHE IS IN HOSPITAL SETTING, REPORTS NEEDING TO GET DRESSED TO "GO MEET [place]." PT HAS BEEN ABLE TO BE REDIRECTED WITH VERBALIZATION. DENIES FEELINGS OF DEPRESSION, ANXIETY, SI/HI. REPORTS FEELING "JUST SO TIRED." AFTERNOON DEPAKOTE HELD PER DR. TARANGO'S ORDER. P: RESTORIL DISCONTINUED, PT STARTING DOXEPIN AT HS.
[2020-03-08 20:24] VITALS: BP 163/73
[2020-03-08] MEDS: ZYPREXA ZYDIS SL SCH (20:39)
[2020-03-08] MEDS: MELATONIN PO SCH (20:40)
[2020-03-08] MEDS: SINEQUIN PO SCH (20:40)
[2020-03-08] MEDS: LIPITOR PO SCH (20:40)
--- NOTE | 2020-03-09 06:16 | NUR ---
P.I.R.P. P. ALTERATION IN MOOD AND THOUGHT PROCESS I. PROVIDE EVERY 15 MINUTE CHECKS, PROVIDE SAFE ENVIRONMENT, PROVIDE MEDICATIONS ORDERED PER MD, PROVIDE TASK ORIENTED GROUP ACTIVITY AND ENCOURAGE PARTICIPATION. RE DIRECT AND RE ORIENT NEEDED. MONITOR FOR CHANGES IN COGNITIVE STATUS. PROVIDE 1:1 INTERVENTION TO ALLOW PATIENT TO EXPRESS FEELINGS. R. PATIENT TOOK MEDS ORDERED, PARTICIPATED IN GROUP ACTIVITY, INTERACTED APPROPRIATELY, PATIENT ORIENTED TO SELF,MONTH AND YEAR. PATIENT SLEPT 8.25 HOURS THIS NIGHT. DENIES ANXIETY, DENIED DEPRESSION. P. CONTINUE CURRENT PLAN OF CARE
--- NOTE | 2020-03-09 08:09 | NUR ---
Report Assumed care of patient after report received from Malena ANGEL. Patient sleeping in bed B of room 212.
[2020-03-09] MEDS: AMARYL PO SCH ×3 (08:10→16:35)
[2020-03-09] MEDS: HUMULIN R SQ SCH ×5 (08:11→20:35)
--- NOTE | 2020-03-09 08:18 | NUR ---
AM MEDS AMARYL AND 2 UNITS OF INSULIN HELD PT IS ASLEEP AT THIS TIME. ACCUCHECK WAS DONE AND PT KEPT SLEEPING AND SNORING, NEVER MOVED. WILL GIVE THE MEDICATIONS WHEN PT WAKES AND EATS BREAKFAST.
[2020-03-09 09:21] VITALS: BP 149/67
[2020-03-09] MEDS: IMDUR PO SCH (10:53)
[2020-03-09] MEDS: ZESTRIL PO SCH (10:53)
[2020-03-09] MEDS: LOPRESSER PO SCH ×2 (10:54→20:34)
[2020-03-09] MEDS: DEPAKOTE SPRINKLE PO SCH (14:02)
--- NOTE | 2020-03-09 15:39 | NUR ---
PIRP P: ALTERATION IN MOOD, ALTERED THOUGHT PROCESS I: Q15 MIN MONITORING, ASSESS FOR PSYCHOTIC SYMPTOMS, MONITOR FOR CHANGES IN USUAL BEHAVIOR, RE-ORIENT TO REALITY, PROVIDE TASK-ORIENTED ACTIVITIES, RE-ORIENT TO SURROUNDINGS NEEDED, ALTERNATE REST/ACTIVITY, GIVE CLEAR AND SIMPLE INSTRUCTIONS, REINFORCE FALL PREVENTION TECHNIQUES, REINFORCE EDUCATION REGARDING USE OF STATLOCK FOR ABDUL CATHETER, REDIRECT WITH VERBALIZATION, GIVE MEDICATIONS ORDERED R: PT HAS FLAT, WITHDRAWN AFFECT MAJORITY OF SHIFT. HAS NOT EXHIBITED THREATENING OR COMBATIVE BEHAVIORS. HAS BECOME IRRITABLE AT TIMES WITH EDUCATION. NO HALLUCINATIONS NOTED, BUT DOES EXHIBIT VARYING DELUSIONS R/T CONFUSION, DOES NOT REMEMBER SHE IS IN HOSPITAL SETTING. PT HAS BEEN ABLE TO BE REDIRECTED WITH VERBALIZATION. DENIES FEELINGS OF DEPRESSION, ANXIETY, SI/HI. REPORTS FEELING "JUST SO TIRED." AFTERNOON DEPAKOTE GIVEN P: CONT POC
--- NOTE | 2020-03-09 16:57 | PRM.PN ---
Mood: good, I'm ready to go home, Sleep: 8.25 hours Appetite: oh lOrd I could eat you, not sure why I am so hungry Suidical thoughts: denies Homicidal thoughts: denies Recent stressors: annoyed with catheter bag Family support: reports yes, Aggressive Behavior: not present Ability to Perform ADL'sc: staff assist Psychotic sympstoms: denies Manic Symptoms: can be loud but hard of hearing Living situation: lives in snf Illicit Drug usec: na Alcoholo use: na Tobacco use: na Family,PT,Surgical,&Current HX: (1) Dementia (2) Delusional disorder Anxity Symptoms: to go home, Anger/Irritablility: denies Muscle Strength & Tone: Rigidity Gait & Station: Ataxic Appearance: Well groomed/hygience Attitude & Behaviour: Cooperative/Pleasant Mood & Affect: Full Orientation: Disoriented to place, Disoriented to time (can say 2019, says [address]) Attention/Concentration: Fair attention, Fair concentration Speech: Reg rate/vol/rhyth/prosod (loud and hard of hearing) Judgement/Insight: Fair judgement, Poor insight Thought Process: Circumferential Language: Ukrainian Thought content/Abnormal/Psych: Delusions Fund of Knowledge: WNL Associations: WNL/Normal Associations Constitutional: None Neurological: None Psychiatric: Psychosis (not staying oriented) Ruby I: dementia, delusional disorder Ruby IV: lives in snf Assessment/Plan Assessment/Plan Plan Dr. Freeman: on 03/09/2020 D/C Temazepam, trial of Doxepin 10mg PO QHS for sleep Order Ammonia level social: assisted living can only do injectible insulin twice per day nursing: a bit confused, redirectable not exit seeking remains a bit more tired, dailey was placed yesterday, immediately 700mL she was able to sleep Vital Signs Date Time Temp Pulse Resp B/P (MAP) Pulse Ox O2 Delivery O2 Flow Rate FiO2 03/09/20 10:54 66 149/67 03/09/20 09:21 97.2 18 95 Room Air Allergies Coded Allergies Type Severity Reaction Last Updated Verified azithromycin Allergy Unknown 02/21/20 Yes cyanocobalamin (vitamin B12) Allergy Unknown 02/21/20 Yes ferrous sulfate Allergy Unknown 02/21/20 Yes meperidine Allergy Unknown 02/21/20 Yes Current Medications Medications (Trade) Dose Ordered Sig/Colton PRN Reason Start Time Stop Time Status Last Admin Divalproex Sodium (Depakote Sprinkle) 125 mg 1500 03/07/20 15:00 04/06/20 14:59 03/09/20 14:02 Doxepin HCl (Sinequin) 10 mg HS 03/08/20 21:00 04/07/20 20:59 03/08/20 20:40 Glimepiride (Amaryl) 2 mg BIDAC 03/08/20 07:30 04/06/20 20:59 03/09/20 16:35 Psychotropics: doxepin 10mg po daily at hs melatonin 3mg po daily at hs depakote sprinkles lowered to 125mg daily in the afternoon, prevent sundowning, (valproic level was at 59 when she was on 375mg daily) Temazepam 15mg po daily at hs (stopped 03/08/2020 did not appear real helpful) olanzapine 5mg prn and scheduled 5mg daily at hs aricept 10mg po daily at hs (stopped due to elevated creat- bun) seroquel 25mg PO QHS sleep/mood (did not consistently provide sleep at night) remeron 7.5mg po daily at hs - stopped has not been consistently helpful with sleep summary; some recall of urinary frequency can know name of town and year but poor recall of recent, and then will believe she is in a different age of her life, CONSENT: Consent was obtained by patient for telemedicine visit. Consent was obtained for the presence of staff member throughout encounter. Privacy was maintained throughout encounter PLAN: 1. CONTINUE BEHAVIORAL HEALTH MANAGEMENT. 2. ALL PATIENT QUESTIONS ANSWERED RELATED TO MEDICATIONS, PLAN OF CARE, AND EXPECTED OUTCOMES. 3. WOULD GREATLY APPRECIATE IF HOSPITALIST CAN CONSULT ON INJECTABLE INSULIN CAN BE REDUCED TO BID FOR A DISCHARGE TO HER PREFERRED ASSISTED LIVING 4. SAFETY PLAN DISCUSSED. JORGE CHRALES NP Mar 09, 2020 16:57
--- NOTE | 2020-03-09 17:33 | NUR ---
Telemed Patient seen by Zac Whitlock NP via Telemedicine. No changes made.
[2020-03-09 19:45] VITALS: BP 182/82
[2020-03-09] MEDS: SINEQUIN PO SCH (20:34)
[2020-03-09] MEDS: ZYPREXA ZYDIS SL SCH (20:35)
[2020-03-09] MEDS: MELATONIN PO SCH (20:35)
[2020-03-09] MEDS: LIPITOR PO SCH (20:35)
--- NOTE | 2020-03-10 00:30 | NUR ---
PATIENT CONTINUES TO HAVE EXCORIATED, RED LYRIC AREA WITH WHITISH DISCHARGE AND WHITISH RAISED AREAS TO LABIA AND INNER UPPER THIGHS. AREA HAS NOT IMPROVED MUCH WITH USE OF TOPICAL MOISTURE BARRIER WITH ANTIFUNGAL, PATIENT COMPLAINS OF VAGINAL DISCOMFORT AT TIMES. PATIENTS TONGUE RED, DRY, STRAWBERRY APPEARING AND MUCOSA OF MOUTH APPEARS IRRITATED/RED. CONTACTED DR ALMANZA, REPORTED ALL ABOVE AND THAT PATIENT CONTINUES WITH ABDUL CATH DUE TO RETENTION OF URINE, ORDERS RECEIVED FOR NYSTATIN POWDER THREE TIMES DAILY AND DIFLUCAN 100 MG DAILY, MAY ADMINISTER BOTH NOW AND THEN START SCHEDULED. EXPLAINED NEW ORDERS TO PATIENT AND PATIENT AGREES. NEW ORDER ALSO INCLUDED CBC AND CHEM 12 THIS AM TO CHECK LIVER ENZYMES.
[2020-03-10] MEDS ORDERED: DIFLUCAN PO ONE (01:00)
[2020-03-10] MEDS ORDERED: NYSTOP TP ONE (01:00)
--- NOTE | 2020-03-10 05:54 | NUR ---
.I.R.P. P. ALTERATION IN MOOD AND THOUGHT PROCESS I. PROVIDE EVERY 15 MINUTE CHECKS, PROVIDE SAFE ENVIRONMENT, PROVIDE MEDICATIONS ORDERED PER MD, PROVIDE TASK ORIENTED GROUP ACTIVITY AND ENCOURAGE PARTICIPATION. RE DIRECT AND RE ORIENT NEEDED. MONITOR FOR CHANGES IN COGNITIVE STATUS. PROVIDE 1:1 INTERVENTION TO ALLOW PATIENT TO EXPRESS FEELINGS. R. PATIENT TOOK MEDS ORDERED, YELLED OUT AT TIMES VOICING ABDUL CATH WAS BOTHERING HER AND SHE WANTED IT OUT, WITH EDUCATION PATIENT AGREED TO LEAVE ABDUL CATH IN PLACE VOICING THAT URINE NEEDED TO COME OUT. PATIENT ORIENTED TO SELF,MONTH AND YEAR. DENIES ANXIETY, DENIED DEPRESSION. NO PRN MEDS THIS SHIFT, NEW ORDERS PER DR ALMANZA FOR RED WHITISH COATING AND LESIONS TO LYRIC/VAGINAL AREA. P. CONTINUE CURRENT PLAN OF CARE
[2020-03-10 06:37] LABS: BASOPHIL % 0.3 % (0.0-0.2); EOSINOPHIL # 0.1 10^3/uL (0.0-0.2); LYMPHOCYTES # 1.59 10^3/uL1 (1.0-4.8); LYMPHOCYTES % 20.3 % (24.0-44.0); MONOCYTES # 0.8 10^3/uL (0.3-0.8); MONOCYTES % 10.6 % (5.0-12.0); NEUTROPHIL # 5.3 10^3/uL (1.8-7.7); NEUTROPHILS % 67.2 % (41.0-85.0); PLATELET COUNT 193 10^3/uL (150-400); RED CELL DISTRIBUTION WIDTH 12.6 % (11.5-14.5)
[2020-03-10 06:48] LABS: CALCIUM 8.3 mg/dL (8.4-10.5); CARBON DIOXIDE 24.5 mmol/L (20.0-32)
[2020-03-10] MEDS: HUMULIN R SQ SCH ×4 (07:30→20:21)
--- NOTE | 2020-03-10 07:48 | NUR ---
Report Assumed care of patient after report received from Malena ANGEL at shift change.
[2020-03-10 08:47] VITALS: BP 142/64
[2020-03-10] MEDS: NYSTOP TP SCH ×3 (09:00→20:22)
[2020-03-10] MEDS: ZESTRIL PO SCH (09:13)
[2020-03-10] MEDS: AMARYL PO SCH ×2 (09:14→16:55)
[2020-03-10] MEDS: IMDUR PO SCH (09:14)
[2020-03-10] MEDS: LOPRESSER PO SCH ×2 (09:16→20:26)
[2020-03-10] MEDS: DEPAKOTE SPRINKLE PO SCH (15:22)
--- NOTE | 2020-03-10 16:07 | PRM.PN ---
Mood: I'm alright, Sleep: 5.75 hour+ 3 hours Appetite: good Suidical thoughts: denies Homicidal thoughts: denies Recent stressors: catheter tube, hopes she gets to get rid of it Family support: talks to family Aggressive Behavior: denies Ability to Perform ADL'sc: denies Psychotic sympstoms: less responsive to disoriented thinking, Manic Symptoms: able to sit still Living situation: lives in assisted living Illicit Drug usec: na Alcoholo use: na Tobacco use: na Family,PT,Surgical,&Current HX: (1) Dementia (2) Delusional disorder Anxity Symptoms: only urgent to return to what she wants to do Anger/Irritablility: denies Muscle Strength & Tone: Rigidity Gait & Station: Ataxic Appearance: Well groomed/hygience Attitude & Behaviour: Cooperative/Pleasant Mood & Affect: Full Orientation: Disoriented to place, Disoriented to time Attention/Concentration: Fair attention, Poor concentration Speech: Reg rate/vol/rhyth/prosod Judgement/Insight: Fair judgement, Poor insight Thought Process: Circumferential Language: Indonesian Thought content/Abnormal/Psych: Delusions (perceptions memory do not stay in current day) Fund of Knowledge: WN Associations: Other Constitutional: None Neurological: None Psychiatric: Psychosis Willards I: dementia, delusional disorder Willards IV: lives in assisted living Assessment/Plan Assessment/Plan Plan Nursin.75 hours at night and then another 3 hours she would prefer her dailey out but not pulled it out, has calmed she is more alert than previous days participating, cheerful Vital Signs Date Time Temp Pulse Resp B/P (MAP) Pulse Ox O2 Delivery O2 Flow Rate FiO2 03/10/20 09:16 71 142/64 03/10/20 08:47 98.2 20 96 Room Air Allergies Coded Allergies Type Severity Reaction Last Updated Verified azithromycin Allergy Unknown 02/21/20 Yes cyanocobalamin (vitamin B12) Allergy Unknown 02/21/20 Yes ferrous sulfate Allergy Unknown 02/21/20 Yes meperidine Allergy Unknown 02/21/20 Yes Current Medications Medications (Trade) Dose Ordered Sig/Colton PRN Reason Start Time Stop Time Status Last Admin Doxepin HCl (Sinequin) 10 mg HS 03/08/20 21:00 04/07/20 20:59 03/09/20 20:34 Fluconazole (Diflucan) 100 mg DAILY 03/10/20 20:00 03/16/20 20:00 Glimepiride (Amaryl) 2 mg BIDAC 03/08/20 07:30 04/06/20 20:59 03/10/20 09:14 Nystatin (Nystop) 1 gm TID 03/10/20 09:00 03/16/20 20:00 03/10/20 15:22 Psychotropics: doxepin 10mg po daily at hs olanzapine 5mg prn and scheduled 5mg daily at hs melatonin 3mg po daily at hs depakote sprinkles lowered to 125mg daily in the afternoon, prevent sundowning, (valproic level was at 59 when she was on 375mg daily) Temazepam 15mg po daily at hs (stopped 03/08/2020 did not appear real helpful) aricept 10mg po daily at hs (stopped due to elevated creat- bun) seroquel 25mg PO QHS sleep/mood (did not consistently provide sleep at night) remeron 7.5mg po daily at hs - stopped has not been consistently helpful with sleep summary; Today she greets me warmly but really wants to get back to her game o [employer] cards. Summary of medical; now has dailey catheter, urinary retention, CONSENT: Consent was obtained by patient for telemedicine visit. Consent was obtained for the presence of staff member throughout encounter. Privacy was maintained throughout encounter PLAN: 1. CONTINUE BEHAVIORAL HEALTH MANAGEMENT. 2. ALL PATIENT QUESTIONS ANSWERED RELATED TO MEDICATIONS, PLAN OF CARE, AND EXPECTED OUTCOMES. 3. WOULD GREATLY APPRECIATE IF HOSPITALIST CAN CONSULT ON INJECTABLE INSULIN CAN BE REDUCED TO BID FOR A DISCHARGE TO HER PREFERRED ASSISTED LIVING 4. SAFETY PLAN DISCUSSED. 5. Attempt lower zyprexa at hs; due to elevated blood sugar and may add anticholinergic effects adding to urinary retention. Scheduled zyprexa 2.5mg po daily at hs 6. Would greatly appreciated hospitalist consult; BUN elevated to 25 from 20, hemoglobin and RBC lowering, total protein and albumin are lowering, urine in glucose higher last ua 7. EKG ordered for tomorrow to rule out changes since hospitalization with the addition of atypical antipsychotic JORGE CHARLES NP Mar 10, 2020 16:07
--- NOTE | 2020-03-10 17:51 | NUR ---
PIRP P: DEMENTIA WITH BEHAVIORAL DISTURBANCES; RISK FOR FALLS I: Q 15 MINUTE MONITORING; ASSESS SAFETY OF ENVIRONMENT; ASSESS PATIENT FOR DELUSIONAL THINKING, DEPRESSION, ANXIETY, SI/HI; PROVIDE GROUP ACTIVITY; ENCOURAGE EXPRESSION OF THOUGHTS AND FEELINGS IN AN APPROPRIATE MANNER; ASSIST WITH ADLS; PROVIDE ALL MEDICATIONS ORDERED BY PHYSICIAN, EXPLAIN NEED AND PURPOSE FOR MEDICATIONS; R: PATIENT REORIENTED AND REDIRECTED OFTEN NEEDED; PATIENT HAS HAD A MOSTLY CALM DAY WITH ONLY OCCASIONAL INAPPROPRIATE OUTBURSTS; HAS BEEN COOPERATIVE WITH CARE; REORIENTED TO NEED FOR ABDUL CATHETER; PARTICIPATED IN GAME OF [employer] PROVIDED; NO CHANGES MADE AFTER TELEMED VISIT WITH AYDIN CHARLES AREA DIRECTOR; Q 15 MINUTE MONITORING LOGGED; PATIENT ENVIRONMENT IS SAFE HER ROOM IN VIEW OF NURSING STAFF; PATIENT TOOK ALL OF HER MEDICATIONS P: DETERMINE INSULIN NEEDS FOR OUT PATIENT HYPERGLYCEMICS AND ABDUL; PLAN FOR A SAFE DISCHARGE
[2020-03-10 19:31] VITALS: BP 139/75
[2020-03-10] MEDS ORDERED: ZYPREXA ZYDIS ONE (20:22)
[2020-03-10] MEDS: ZYPREXA ZYDIS SL SCH (20:27)
[2020-03-10] MEDS: MELATONIN PO SCH (20:27)
[2020-03-10] MEDS: LIPITOR PO SCH (20:28)
[2020-03-10] MEDS: SINEQUIN PO SCH (20:28)
[2020-03-10] MEDS: DIFLUCAN PO SCH (20:29)
--- NOTE | 2020-03-11 05:58 | NUR ---
P.I.R.P. P. ALTERATION IN THOUGHT PROCESS/SKIN I. PROVIDE EVERY 15 MINUTE CHECKS, PROVIDE SAFE ENVIRONMENT, PROVIDE MEDICATIONS ORDERED PER MD, PROVIDE TASK ORIENTED GROUP ACTIVITY AND ENCOURAGE PARTICIPATION. RE DIRECT AND RE ORIENT NEEDED. MONITOR FOR CHANGES IN COGNITIVE STATUS. PROVIDE 1:1 INTERVENTION TO ALLOW PATIENT TO EXPRESS FEELINGS. R. PATIENT PARTICIPATED IN GROUP ACTIVITY, TOOK MEDS ORDERED, WAS COOPERATIVE, SKIN TO LYRIC AREA HAS DECREASED REDNESS AND WHITISH LESIONS. LESS ANXIOUS THIS SHIFT. P. CONTINUE CURRENT PLAN OF CARE
[2020-03-11] MEDS: HUMULIN R SQ SCH ×4 (07:30→20:08)
--- NOTE | 2020-03-11 07:45 | PCM.EKG ---
[facility] Test Date: 2020-03-11 Test Time: 07:40:47 Pat Name: JUAN SANCHEZ Department: Room: 212 A Gender: F Skein Tier: BRICE : [id number] Requested By: JORGE CHARLES Order Number: [id number] Reading MD: Measurements Intervals [place] Rate: 71 P: -5 HI: 156 QRS: 69 QRSD: 93 T: 85 QT: 411 QTc: 447 Interpretive Statements Sinus rhythm Consider left ventricular hypertrophy Compared to ECG 02/21/2020 12:00:39 T-wave abnormality no longer present Please click the below link to view image of tracing.
[2020-03-11 07:50] VITALS: BP 153/58
[2020-03-11] MEDS: IMDUR PO SCH (08:12)
[2020-03-11] MEDS: LOPRESSER PO SCH ×2 (08:12→20:09)
[2020-03-11] MEDS: DIFLUCAN PO SCH (08:12)
[2020-03-11] MEDS: NYSTOP TP SCH ×3 (08:13→20:12)
[2020-03-11] MEDS: AMARYL PO SCH ×2 (08:13→17:19)
[2020-03-11] MEDS: ZESTRIL PO SCH (08:13)
--- NOTE | 2020-03-11 08:37 | PRM.PN ---
Mood: good, want that thing out of me Sleep: 7 hours Appetite: I ate better today, good percentage today, ate roast last night, proteins Suidical thoughts: denies Homicidal thoughts: denies Recent stressors: catheter- Family support: she asks to talk to family Aggressive Behavior: david say I am getting out today but no exit seeking, Ability to Perform ADL'sc: staff assist - "I'm pretty strong" Psychotic sympstoms: does not stay oriented Manic Symptoms: no Living situation: talks of going home, Illicit Drug usec: na Alcoholo use: na Tobacco use: na Family,PT,Surgical,&Current HX: (1) Delusional disorder (2) Dementia (3) Combative behavior Anxity Symptoms: urgent to "go home" wants catheter out Anger/Irritablility: slight irritable in evenings but unit stimuli often increased then Muscle Strength & Tone: Rigidity Gait & Station: Ataxic Appearance: Well groomed/hygience Attitude & Behaviour: Cooperative/Pleasant Mood & Affect: Full Orientation: Disoriented to place, Disoriented to time Attention/Concentration: Fair attention, Fair concentration Speech: Reg rate/vol/rhyth/prosod Judgement/Insight: Fair judgement, Poor insight Thought Process: Circumferential Language: Mohawk Thought content/Abnormal/Psych: Delusions (at times not recalling her timeline, where she lives, but always knows year) Fund of Knowledge: [facility] Associations: Other Constitutional: None Neurological: None Psychiatric: Anxious (anxious about dailey and wants to go home), Psychosis (does not stay oriented, not always knowing she lives at assisted living) Alpha I: delusional disorder, dementia Alpha IV: return to [facility] living Assessment/Plan Assessment/Plan Plan Nursing: she requests to have dailey removed yeast infection appearing improved by 50% per nursing staff, 1700 in dailey slept 7 hours - discharge: assisted living with home health nursing for insulin medical: no changes previous day patient: knows 2019, says Mary is home but aware she lives in assisted living, agrees this is in [place] she is redirected for plan of care Laboratory Tests 03/10/20 12:24: Bedside Glucose 249H 03/10/20 16:41: Bedside Glucose 295H 03/10/20 19:56: Bedside Glucose 257H 03/10/20 21:33: Bedside Glucose 108 03/11/20 07:22: Bedside Glucose 93 Vital Signs Date Time Temp Pulse Resp B/P (MAP) Pulse Ox O2 Delivery O2 Flow Rate FiO2 03/11/20 08:13 153/58 03/11/20 08:12 72 03/11/20 07:50 98.1 18 94 Room Air Allergies Coded Allergies Type Severity Reaction Last Updated Verified azithromycin Allergy Unknown 02/21/20 Yes cyanocobalamin (vitamin B12) Allergy Unknown 02/21/20 Yes ferrous sulfate Allergy Unknown 02/21/20 Yes meperidine Allergy Unknown 02/21/20 Yes Current Medications Medications (Trade) Dose Ordered Sig/Colton PRN Reason Start Time Stop Time Status Last Admin Doxepin HCl (Sinequin) 10 mg HS 03/08/20 21:00 04/07/20 20:59 03/10/20 20:28 Fluconazole (Diflucan) 100 mg DAILY 03/10/20 20:00 03/16/20 20:00 03/11/20 08:12 Nystatin (Nystop) 1 gm TID 03/10/20 09:00 03/16/20 20:00 03/11/20 08:13 Olanzapine (Zyprexa Zydis) 2.5 mg HS 03/10/20 21:00 04/09/20 20:59 03/10/20 20:27 Psychotropics: doxepin 10mg po daily at hs attempted to reduce antichoinergic SEs, patient nocturia up to 18 times at night prior to catheter- olanzapine reduced to 2.5mg daily at hs olanzapine 5mg prn melatonin 3mg po daily at hs depakote sprinkles lowered to 125mg daily in the afternoon, prevent sundowning, (valproic level was at 59 when she was on 375mg daily) Medication trials: Temazepam 15mg po daily at hs (stopped 03/08/2020 did not appear real helpful) aricept 10mg po daily at hs (stopped due to elevated creat- bun) seroquel 25mg PO QHS sleep/mood (did not consistently provide sleep at night) remeron 7.5mg po daily at hs - stopped has not been consistently helpful with sleep summary; Lorna is alert, she does want the dailey out, discuss plan with her. CONSENT: Consent was obtained by patient for telemedicine visit. Consent was obt ained for the presence of staff member throughout encounter. Privacy was maintained throughout encounter PLAN: 1. CONTINUE BEHAVIORAL HEALTH MANAGEMENT. 2. ALL PATIENT QUESTIONS ANSWERED RELATED TO MEDICATIONS, PLAN OF CARE, AND EXPECTED OUTCOMES. 3. WOULD GREATLY APPRECIATE IF HOSPITALIST CAN CONSULT ON INJECTABLE INSULIN CAN BE REDUCED TO BID FOR A DISCHARGE TO HER PREFERRED ASSISTED LIVING 4. SAFETY PLAN DISCUSSED. 5. Would greatly appreciated hospitalist consul- talked with Dr. Gale Burt this morning: BUN elevated to 25 from 20, hemoglobin and RBC lowering, total protein and albumin are lowering, urine in glucose higher last ua (assisted living would have preferred insulin only twice per day, metformin being held, (no appearance of blood in stool, large on 03/10/2020) patient wants dailey out, EKG has been done unremarkable 6. Upon discharge referral to urology for urinary retention, Medical consult 7. Discharge home health nursing is only available as BID JORGE CHARLES NP Mar 11, 2020 08:37
--- NOTE | 2020-03-11 12:00 | NUR ---
Bladder training Patient asking to have dailey catheter out. Placed evening of 03/07/2020 for bladder retention. Order received to bladder train and then remove dailey catheter. Bladder training started at 1130.
[2020-03-11] MEDS: DEPAKOTE SPRINKLE PO SCH (14:35)
--- NOTE | 2020-03-11 16:56 | NUR ---
PIRP P: alteration in thought process; risk for falls I: GIVE MEDICATIONS ORDERED, EXPLAIN NEED PURPOSE FOR MEDICATION; ENCOURAGE ORAL CARE AND BATHING; PROVIDE NUTRITIOUS MEALS AND SNACKS; ASSESS PATIENT FOR DEPRESSION, ANXIETY, SI/HI, VOICES/VISIONS; REORIENT AND REDIRECT NEEDED, PROVIDE A SAFE SECURE ENVIRONMENT; ENCOURAGE PARTICIPATION GROUP ACTIVITY; MONITOR q 15 MINUTES R: PATIENT TOOK ALL OF HER MEDICATIONS WITH EDUCATION PROVIDED DURING ADMINISTRATION OF MEDS; Q 15 MINUTE MONITORING LOGGED; REORIENTED NEEDED TO COMPLETE BLADDER TRAINING; DENIES DEPRESSION, ANXIETY, SI/HI, NO VOICES OR VISIONS; BED ALARM ON BED, PATIENT WITH STAFF CONTINUALLY; PATIENT HAS EATEN >75% AT MEALTIME P: PLAN FOR A SAFE DISCHARGE POSSIBLY TOMORROW, EDER MARTIN
[2020-03-11 20:00] VITALS: BP 147/70
[2020-03-11] MEDS: SINEQUIN PO SCH (20:08)
[2020-03-11] MEDS: MELATONIN PO SCH (20:09)
[2020-03-11] MEDS: LIPITOR PO SCH (20:09)
[2020-03-11] MEDS: ZYPREXA ZYDIS SL SCH (20:10)
--- NOTE | 2020-03-11 21:00 | NUR ---
DR. CAMI ALMANZA ON PHONE REGARDING THIS PT. DR. ALMANZA STATED THAT PT IS TO BE DISCHARGED WITH [facility] AND TO HAVE GLUCOSE MONITORING BID WITH PRN INSULIN, ALSO STATED THAT SHE RECOMMENDS THAT IRON LEVELS CONTINUE TO BE MONITORED OUTSIDE OF THE HOSPITAL.
--- NOTE | 2020-03-11 21:05 | NUR ---
PIRP P: alteration in thought process; risk for falls I: GIVE MEDICATIONS ORDERED, EXPLAIN NEED PURPOSE FOR MEDICATION; ENCOURAGE ORAL CARE AND BATHING; PROVIDE NUTRITIOUS MEALS AND SNACKS; ASSESS PATIENT FOR DEPRESSION, ANXIETY, SI/HI, VOICES/VISIONS; REORIENT AND REDIRECT NEEDED, PROVIDE A SAFE SECURE ENVIRONMENT; ENCOURAGE PARTICIPATION GROUP ACTIVITY; MONITOR q 15 MINUTES
[2020-03-12] MEDS: HUMULIN R SQ SCH ×4 (08:10→20:41)
[2020-03-12 08:42] VITALS: BP 160/65
--- NOTE | 2020-03-12 08:42 | PRM.PN ---
Mood: good Sleep: 8 hours, sleeping in now Appetite: did not eat breakfast, wanted to sleep Suidical thoughts: denies Homicidal thoughts: denies Recent stressors: urinary catheter Family support: calls family Aggressive Behavior: not an issue Ability to Perform ADL'sc: assist of staff Psychotic sympstoms: perceptions now always well due to memory Manic Symptoms: not been exit seeking Living situation: (actually assisted living) Illicit Drug usec: na Alcoholo use: na Tobacco use: na Family,PT,Surgical,&Current HX: (1) Dementia (2) Delusional disorder Anxity Symptoms: wants to be discharged Anger/Irritablility: denies Muscle Strength & Tone: Rigidity Gait & Station: Ataxic Appearance: Well groomed/hygience Attitude & Behaviour: Cooperative/Pleasant Mood & Affect: Full Orientation: Disoriented to place, Disoriented to time Attention/Concentration: Fair attention, Fair concentration Speech: Reg rate/vol/rhyth/prosod Judgement/Insight: Fair judgement, Poor insight Thought Process: Circumferential Language: Kazakh Thought content/Abnormal/Psych: Delusions Fund of Knowledge: WNL Associations: Other Constitutional: None Neurological: None Psychiatric: Psychosis [place] I: dementia delusional disorder [place] IV: lives at assited living Assessment/Plan Assessment/Plan Plan Nursing: bladder training catheter removal, did not wake up multiple time to urinate discharge: assisted living with home health nursing for insulin medical: no changes previous day patient: yes ready to go home sits up for me, clearly understands what discharge means toast - jelly- is what she wants for breakfast, yes wants coffee "damn thing" is how she refers to the urinary catheter, says yes to urinating says sore from having tube in Laboratory Tests 03/11/20 09:45: Iron Level 37L, Total Iron Binding Capacity 304, Percent Iron Saturation 12.2, Unsaturated Iron Binding Capacity 267.0, Vitamin B12 Level 488, Folate 15.6, Thyroid Stimulating Hormone (TSH) 4.134H 03/11/20 12:01: Bedside Glucose 395H 03/11/20 17:09: Bedside Glucose 170H 03/11/20 19:28: Bedside Glucose 217H 03/12/20 08:08: Bedside Glucose 100 Vital Signs Date Time Temp Pulse Resp B/P (MAP) Pulse Ox O2 Delivery O2 Flow Rate FiO2 03/12/20 08:42 97.3 73 18 160/65 (96) 99 Room Air Allergies Coded Allergies Type Severity Reaction Last Updated Verified azithromycin Allergy Unknown 02/21/20 Yes cyanocobalamin (vitamin B12) Allergy Unknown 02/21/20 Yes ferrous sulfate Allergy Unknown 02/21/20 Yes meperidine Allergy Unknown 02/21/20 Yes Current Medications Medications (Trade) Dose Ordered Sig/Colton PRN Reason Start Time Stop Time Status Last Admin Fluconazole (Diflucan) 100 mg DAILY 03/10/20 20:00 03/16/20 20:00 03/11/20 08:12 Nystatin (Nystop) 1 gm TID 03/10/20 09:00 03/16/20 20:00 03/11/20 20:12 Olanzapine (Zyprexa Zydis) 2.5 mg HS 03/10/20 21:00 04/09/20 20:59 03/11/20 20:10 Psychotropics: doxepin 10mg po daily at hs attempted to reduce anticholinergic SEs, patient nocturia up to 18 times at night prior to catheter- olanzapine reduced to 2.5mg daily at hs olanzapine 5mg prn melatonin 3mg po daily at hs depakote sprinkles lowered to 125mg daily in the afternoon, prevent sundowning, (valproic level was at 59 when she was on 375mg daily) Medication trials: Temazepam 15mg po daily at hs (stopped 03/08/2020 did not appear real helpful) aricept 10mg po daily at hs (stopped due to elevated creat- bun) seroquel 25mg PO QHS sleep/mood (did not consistently provide sleep at night) remeron 7.5mg po daily at hs - stopped has not been consistently helpful with sleep summary; Lorna is alert- easily aroused but rather tired this morning, hypersomnolence Prepare for discharge tomorrow with assisted living CONSENT: Consent was obtained by patient for telemedicine visit. Consent was obtained for the presence of staff member throughout encounter. Privacy was maintained throughout encounter PLAN: 1. CONTINUE BEHAVIORAL HEALTH MANAGEMENT. Discharge tomorrow 2. ALL PATIENT QUESTIONS ANSWERED RELATED TO MEDICATIONS, PLAN OF CARE, AND EXPECTED OUTCOMES. 3. WOULD GREATLY APPRECIATE IF HOSPITALIST CAN CONSULT ON INJECTABLE INSULIN CAN BE REDUCED TO BID FOR A DISCHARGE TO HER PREFERRED ASSIST ED LIVING 4. SAFETY PLAN DISCUSSED. 5. Upon discharge referral to urology for urinary retention, Medical consult 7. Discharge with home health for diabetes monitoring, JORGE CHARLES NP Mar 12, 2020 08:42
[2020-03-12] MEDS: IMDUR PO SCH (10:14)
[2020-03-12] MEDS: ZESTRIL PO SCH (10:14)
[2020-03-12] MEDS: LOPRESSER PO SCH ×2 (10:14→20:33)
[2020-03-12] MEDS: DIFLUCAN PO SCH (10:14)
[2020-03-12] MEDS: AMARYL PO SCH ×2 (10:15→15:27)
[2020-03-12] MEDS: NYSTOP TP SCH ×3 (10:15→20:48)
[2020-03-12] MEDS: DEPAKOTE SPRINKLE PO SCH (15:11)
--- NOTE | 2020-03-12 16:20 | NUR ---
MED CLARIFICATION THIS RN SPOKE TO DR. ALMANZA REGARDING DISCHARGE MEDICATIONS. PER DR. ALMANZA, PT IS TO BE DISCHARGED ONLY ON METFORMIN BID, NO OTHER ANTI-DIABETIC MEDICATION, INCLUDING INSULIN. CONTINUE ACCU CHECKS BIDAC.
--- NOTE | 2020-03-12 17:29 | NUR ---
PIRP P: ALTERATION IN MOOD I: Q15 MIN MONITORING, ASSESS FOR PSYCHOTIC SYMPTOMS, MONITOR FOR CHANGES IN USUAL BEHAVIOR, PROVIDE TASK-ORIENTED ACTIVITIES, RE-ORIENT TO SURROUNDINGS NEEDED, ALTERNATE REST/ACTIVITY, GIVE CLEAR AND SIMPLE INSTRUCTIONS, REINFORCE FALL PREVENTION TECHNIQUES, REDIRECT WITH VERBALIZATION, GIVE MEDICATIONS ORDERED R: PT HAS HAD PLEASANT AFFECT THROUGHOUT SHIFT, RESPONDS APPROPRIATELY TO APPROACH. HAS NOT EXHIBITED THREATENING OR COMBATIVE BEHAVIORS. PT HAS RESTED IN BED DURING SHIFT, STATES, "SLEEP DOES ME GOOD." PT DENIES FEELINGS OF DEPRESSION, ANXIETY, SI/HI. NO HALLUCINATIONS OR DELUSIONS NOTED. HAS TAKEN MEDICATIONS ORDERED, COOPERATIVE WITH TOILETING, BUT HAS REFUSED SHOWER THIS SHIFT. PT INITIATES INTERACTION WITH STAFF AND PEERS, PARTICIPATES IN SOME GROUP ACTIVITIES WITH PROMPTING. P: PLANS FOR DISCHARGE TOMORROW, 03/13/2020 TO [facility] IN [place], [place].
[2020-03-12 19:30] VITALS: BP 155/73
[2020-03-12] MEDS: MELATONIN PO SCH (20:33)
[2020-03-12] MEDS: ZYPREXA ZYDIS SL SCH (20:33)
[2020-03-12] MEDS: LIPITOR PO SCH (20:33)
[2020-03-12] MEDS: SINEQUIN PO SCH (20:33)
--- NOTE | 2020-03-13 04:06 | NUR ---
PIRP- P- ALTERATION IN MOOD I- PROVIDE MEDICATION ORDERED,PROVIDE SAFE AND SUPPORTIVE ENVIRONMENT AND Q 15 MIN. MONITORING R-PT. DENIED DEPRESSION AND ANXIETY. ATTENDED GROUP,ATE SNACKS AND PARTICIPATED IN GROUP ACTIVITY. PT. WAS TALKING TO PEOPLE WHO WERE NOT THERE. WAS ASSISTED WITH HS CARE AND TO BED. RESTING IN BED WITH EYES CLOSED AT THIS TIME. P- WILL CONTINUE TO PROVIDE 1:1 INTERVENTION ALLOWING PT. TO EXPRESS THOUGHTS AND FEELINGS.
[2020-03-13] MEDS: HUMULIN R SQ SCH (07:05)
[2020-03-13] MEDS: AMARYL PO SCH ×2 (07:05→08:35)
[2020-03-13 07:40] VITALS: BP 171/74
[2020-03-13] MEDS: LOPRESSER PO SCH (08:34)
[2020-03-13] MEDS: ZESTRIL PO SCH (08:34)
[2020-03-13] MEDS: DIFLUCAN PO SCH (08:35)
[2020-03-13] MEDS: IMDUR PO SCH (08:35)
[2020-03-13] MEDS: NYSTOP TP SCH (08:35)
[2020-03-13] MEDS ORDERED: DIVA125C2 PO (08:50)
[2020-03-13] MEDS ORDERED: MELA3TAB31 PO (08:50)
[2020-03-13] MEDS ORDERED: OLAN5TAB5 SL (08:50)
[2020-03-13] MEDS ORDERED: DOXE10CA PO (08:50)
[2020-03-13] MEDS ORDERED: LISI-414 PO (09:12)
[2020-03-13] MEDS ORDERED: NYST60PO TP (09:12)
[2020-03-13] MEDS ORDERED: METO25TA4 PO (09:12)
[2020-03-13] MEDS ORDERED: FLUC100T PO (09:12)
[2020-03-13] MEDS ORDERED: METF500T PO (09:12)
--- NOTE | 2020-03-13 09:45 | NUR ---
DISCHARGE DISCHARGE EDUCATION PROVIDED TO PT REGARDING MEDICATIONS, FALL PREVENTION, MALNUTRITION RISKS, DEMENTIA, PSYCHOSIS, AND YEAST INFECTIONS. PT VOICED NO QUESTIONS REGARDING DISCHARGE INFO PROVIDED. PT UNABLE TO VERBALIZE UNDERSTANDING D/T COGNITIVE IMPAIRMENT.
[2020-03-13 09:59] VITALS: BP 110/65
[2020-03-13 10:41] VITALS: BP 110/65
--- NOTE | 2020-03-13 10:41 | NUR ---
OFF UNIT PT TRANSPORTED OFF UNIT VIA W/C BY Serena SWAN LVN. NO DISTRESS NOTED, DENIES PAIN.
--- NOTE | 2020-03-13 17:56 | NUR ---
DHRUV THIS RN CALLED AND GAVE REPORT TO NURSING FACILITY STAFF AT [phone].
== END 2020-03-13 10:41 | DRG 885 ==
LOC: ER 11:15 → EEVIPCON 14:03 → GP 14:03
PROVIDERS: ADMIT Psychiatry & Neurology Psychiatry; ATTEND Psychiatry & Neurology Psychiatry
DX: F22 Delusional disorders (principal); F03.91 Unspecified dementia, unspecified severity, with behavioral disturbance; N39.0 Urinary tract infection, site not specified; E11.65 Type 2 diabetes mellitus with hyperglycemia; I10 Essential (primary) hypertension; Z20.828 Contact with and (suspected) exposure to other viral communicable diseases; Z95.1 Presence of aortocoronary bypass graft; Z79.899 Other long term (current) drug therapy; Z88.8 Allergy status to other drugs, medicaments and biological substances; Z88.1 Allergy status to other antibiotic agents
CPT/HCPCS: 36415; 70450; 71045; 80048; 80053; 80061; 80164; 80299; 80307; 80320; 81000; 82140; 82306; 82550; 82553; 82607; 82746; 82948; 83036; 83550; 83880; 84443; 84484; 85025; 86592; 87077; 87086; 87186; 87635; 93005; 97150; 97165; 99285; G0378; G0480; J1815; J2405; J3010; J3490; J1630